=== PATIENT | female | born 1975 | race African-American/Black ===

== ENCOUNTER → 2024-12-25 | Outpatient (CLI) | payer OTHER, SELFPAY ==
--- OUTSIDE RECORDS SUMMARY | 2024-12-25 08:33 | XMS RPT_ITS | CCD ---
Author Organization [facility] Care Team Providers Care Dry Roaster Name Role Phone ROSA PAIGE Unavailable Unavailab RAJANI Garner Unavailable Unavailable OSMAR PURVIS Unavailable Unavailable RAJANI KNUTSON Unavailable Unavailable JAZMINE SHIRLEY Unavailable Unavailabl e Rajani Knutson Unavailable Rajani Knutson Primary Care Provider [phone] Jazmine Shirley Unavailable Jersey Guardado Admitting Unavailable Jersey Guardado Attending Unavailable El-Nashar, Jose Antonio Unavailable Unavailable Tourlas, Jabari Unavailable Unavailabl e Tourlas, Jabari Unavailable Unavailabl e El-Nashar, Jose Antonio A Unavailable Unavailable Zenia, Rajani L Unavailable Unavailable Alicia Ku Unavailable Unavailable Rajani Knutson Unavailable Unavailable Tourlas, Jabari Unavailable Unavailabl e Zenia, Rajani L Unavailable Unavailable Tourlas, Jabari Unavailable Unavailabl e El-Nashar, Jose Antonio Karen-Razik Karen- Unavailable Unavailable Najma Lay Unavailable Unavail able Nancy Quezada Unavailable Unavailable Zenia, Rajani Bernard Unavailable Unavailable Unavailable Unavailable Unavailable Unavailable Unavailable RAJANI KNUTSON Primary Care Unavailable Dr. Roel Thomason Attending Unava ilable RAJANI KNUTSON Primary Care Unavailable RAJANI KNUTSON Attending Unavailable RAJANI KNUTSON Referring Unavailable RAJANI KNUTSON Primary Care Unavailable RAJANI KNUTSON Attending Unavailable RAJANI KNUTSON Referring Unavailable RAJANI KNUTSON Primary Care Unavailable [place], Mrs. Lj Saez Attending Unavailabl e Mike, Mrs. Lj Saez Referring Unavailabl e Mike, Mrs. Lj Saez Attending Unavailabl e [place], Mrs. Lj Wassermann Referring Unavailabl e ZENIARAJANI PLEITEZ Primary Care Unavailable ZENIA, RAJANI HUNTER Primary Care Unavailable RAJANI KNUTSON Attending Unavailable Zumbar, Dr. Angeli Kessler Attending Unav ailable Zenia, Dr. Rajani Hunter Primary Care Unavailab le Zenia, Dr. Rajani Hunter Primary Care Unavailab le Zenia, Dr. Rajani Hunter Attending Unavailab le Zenia, Dr. Rajani Hunter Primary Care Unavailab ruiz Robles, Rocio Attending Unavailable Zenia, Dr. Rajani Hunter Primary Care Unavailab ruiz Robles, Rocio Attending Unavailable Zenia, Dr. Rajani Hunter Primary Care Unavailab ruiz Robles, Rocio Attending Unavailable Zenia, Dr. Rajani Hunter Primary Care Unavailab ruiz Robles, Rocio Attending Unavailable Rajani Knutson MD Primary Care Provider Rajani Knutson MD Unavailable [phone] RAJANI KNUTSON Primary Care Unavailable RAJANI KNUTSON Primary Care Unavailable Rajani Knutson Referring Unavailable Rajani Knutson Primary Care Unavailable Austen Ibarra Attending Unavailable Rajani Knutson MD Unavailable Mike MOTORCYLES FINAL INSPECTOR-Lj DIAZ Unavailable RAJANI KNUTSON Attending Unavailable RAJANI KNUTSON Primary Care Unavailable Rajani Knutson MD Primary Care Provider [place] MOTORCYLES FINAL INSPECTOR-Lj DIAZ Unavailable [phone] RAJANI KNUTSON Primary Care Unavailable YONI PAIGE Attending Unavailable JARON EMERY Referring Unavailable RAJANI KNUTSON Primary Care Unavailable RAJANI KNUTSON Primary Care Unavailable BLAISE GARCIA Attending Unavailable Medications Current Medications Medication Drug Class(es) Dates Sig (Normalized) Sig (Original) amoxicillin 875 mg / clavulanate 125 mg oral tablet (4 sources) Penicillin-class Antibacterial Start: 04-01-2024 End: 04-11-2024 take 1 tablet by mouth twice daily amoxicillin-pot clavulanate (Augmentin) 875-125 mg tablet Indications: Right acute otitis media Take 1 tablet by mouth 2 times a day for 10 days. 20 tablet 04/01/2024 04/11/2024 Active Start: 04-01-2022 End: 04-08-2022 take 1 tablet by mouth once daily Amoxicillin-Pot Clavulanate 875-125 MG Oral Tablet TAKE 1 TABLET EVERY 12 HOURS DAILY. Quantity: 14 Refills: 0 Ordered: 01-Apr-2022 Lj Potter Start : 01-Apr-2022 End : 08-Apr-2022 Active Start: 09-13-2019 take 1 tablet by rea th twice daily Amoxicillin-Pot Clavulanate 875-125 MG Oral Tablet Take 1 tablet twice daily Quantity: 20 Refills: 0 Jabari Hardin Start : 13-Sep-2019 Active doxycycline hyclate 100 mg delayed release oral capsule (2 sources) Tetracycline-class Drug Start: 03-05-2021 take 1 capsule by mouth twice daily [id number] Medication doxycycline hyclate 100 mg capsule doxycycline hyclate 100 mg capsule 100 mg 1 Capsule by mouth twice a day 03/05/2021 Active (Current) estradiol 0.5 mg oral tablet (7 sources) Estrogen Start: 07-25-2023 End: 11-05-2024 take 1 tablet by mouth once daily estradiol (Estrace) 0.5 mg tablet Indications: Perimenopausal , Hot flashes due to menopause Take 1 tablet (0.5 mg) by mouth once daily. 30 tablet 11 11/06/2023 Active etodolac 400 mg oral tablet (1 source) Nonsteroidal Anti-inflammatory Drug Start: 12-14-2024 End: 12-21-2024 take 1 tablet by mouth twice daily etodolac (Lodine) 400 mg tablet Indications: Injury of left knee, initial encounter Take 1 tablet (400 mg) by mouth 2 times a day for 7 days. 14 tablet 12/14/2024 12/21/2024 Active Ferrous fumarate (1 source) FERROUS FUMARATE (IRON ORAL) Take by mouth daily. 0 Active FIBER, HERBAL, ORAL (3 sources) FIBER, HERBAL, O RAL Take by mouth daily. 0 Active FIBER, HERBAL, O RAL Take by mouth daily. Active hydrocortisone acetate 25 mg rectal suppository (1 source) Corticosteroid Start: 07-27-2024 End: 08-26-2024 hydrocortisone (Anusol-HC) 25 mg suppository Indications: Internal hemorrhoids Insert 1 suppository (25 mg) into the rectum 2 times a day as needed for hemorrhoids. 30 suppository 07/27/2024 08/26/2024 Active ibuprofen 600 mg oral tablet (3 sources) Nonsteroidal Anti-inflammatory Drug take 1 tablet by mouth every six hours as needed ibuprofen (ADVIL,MOTRIN) 600 MG tablet Take 600 mg by mouth every 6 (six) hours as needed for pain. 0 Active multivitamin (THERAGRAN) per tablet (1 source) take 1 tablet by mouth once daily multivitamin (THERAGRAN) per tablet Take 1 tablet by mouth daily. 0 Active Multivitamin Tablet (2 sources) take 1 tablet by mouth once daily multivitamin (THERAGRAN) per tablet Take 1 tablet by mouth daily. Active predniSONE 10 mg oral tablet (1 source) Start: 07-25-2023 End: 08-04-2023 take 5 tablets by mouth once daily, then take 4 tablets by mouth once daily, then take 3 tablets by mouth once daily, then take 2 tablets by mouth once daily, then take 1 tablet by mouth once daily predniSONE (Deltasone) 10 mg tablet Indications: Pain in joint of right shoulder Take 5 tablets (50 mg) by mouth once daily for 2 days, THEN 4 tablets (40 mg) once daily for 2 days, THEN 3 tablets (30 mg) once daily for 2 days, THEN 2 tablets (20 mg) once daily for 2 days, THEN 1 tablet (10 mg) once daily for 2 days. 30 tablet 0 07/25/2023 08/04/2023 Active spironolactone 50 mg oral tablet (2 sources) Aldosterone Antagonist Start: 03-05-2021 take 1 tablet by mouth once daily [id number] Medication spironolactone 50 mg tablet spironolactone 50 mg tablet 50 mg 1 Tablet by mouth daily 03/05/2021 Active (Current) traZODone hydrochloride 50 mg oral tablet (15 sources) Serotonin Reuptake Inhibitor Start: 11-09-2024 traZODone (Desyrel) 50 mg tablet Indications: Insomnia, unspecified type Take 1 tablet (50 mg) by mouth see administration instructions. Can take 1 to 3 tablets at bedtime for insomnia as needed 30 tablet 1 11/09/2024 Active Start: 07-12-2024 traZODone (Williams yrel) 50 mg tablet Indications: Insomnia, unspecified type Take 1 tablet (50 mg) by mouth see administration instructions. Can take 1 to 3 tablets at bedtime for insomnia as needed 30 tablet 1 07/12/2024 Active Start: 03-18-2024 traZODone (Williams yrel) 50 mg tablet Indications: Insomnia, unspecified type Take 1 tablet (50 mg) by mouth see administration instructions. Can take 1 to 3 tablets at bedtime for insomnia as needed 30 tablet 03/18/2024 Active Start: 04-28-2023 End: 09-05-2023 traZODone (Desyrel) 50 mg ta blet Indications: Primary insomnia TAKE 1-3 TABLETS BY MOUTH AT NIGHT FOR INSOMNIA 90 tablet 3 04/28/2023 09/05/2023 Discontinued (Med List Cleanup) Start: 10-19-2021 End: 08-08-2022 traZODone HCl - 50 MG Oral T ablet 1 to 3 tablets at night for insomnia Quantity: 90 Refills: 0 Ordered: 05-Sep-2022 Rajani Knutson MD Start : 19-Oct-2021 Active tretinoin 0.5 mg/ml topical cream (2 sources) Retinoid Start: 03-05-2021 [id number] Medicat ion tretinoin 0.05 % topical cream tretinoin 0.05 % topical cream 0.05 % 1 Application topically daily 03/05/2021 Active (Current) Completed/Discontinued Medications Medication Drug Class(es) Dates Sig (Normalized) Sig (Original) acetaminophen 325 mg oral tablet (1 source) Start: 12-14-2024 End: 12-14-2024 take 650 mg by mouth once as needed for pain 650 mg, oral, Once, On Fri12/14/24 at 0825, For 1 dose, If ordered PRN for pain, nurse is permitted to administer this medication for higher pain scores based on patient preference? Yes azithromycin 250 mg oral tablet (1 source) Macrolide Antimicrobial Start: 06-30-2020 take 2 tablets by mouth once daily, then take 1 tablet by mouth, then take 1 tablet by mouth once daily Azithromycin 250 MG Oral Tablet TAKE 2 TABLETS ON DAY 1 THEN TAKE 1 TABLET A DAY FOR 4 DAYS. Quantity: 1 Refills: 0 Rajani Knutson MD Start : 30-Jun-2020 Active 6 Tablet Pack brompheniramine maleate 0.4 mg/ml / dextromethorphan hydrobromide 2 mg/ml / pseudoephedrine hydrochloride 6 mg/ml oral solution (2 sources) alpha-Adrenergic Agonist, Uncompetitive Z-unolve-U-aspartat e Receptor Antagonist, Sigma-1 Agonist Start: 07-16-2022 End: 08-08-2022 take 10 mL by mouth every six hours Pseudoeph-Bromphe n-DM 30-2-10 MG/5ML Oral Syrup TAKE 10 ML Every 6 hours Quantity: 1 Refills: 0 Ordered: 16-Jul-2022 Lj Potter Start : 16-Jul-2022 End : 08-Aug-2022 Complete cranberry preparation 250 mg oral capsule (10 sources) Non-Standardized Food Allergenic Extract, Non-Standardized Plant Allergenic Extract Start: 07-18-2020 take 2 capsules by mouth once daily Cranberry 250 MG Oral Capsule TAKE 2 CAPSULE Daily Quantity: 0 Refills: 0 Ordered: 18-Jul-2020 DO Start : 18-Jul-2020 Active diclofenac sodium 75 mg delayed release oral tablet (20 sources) Nonsteroidal Anti-inflammatory Drug Start: 06-11-2021 take 1 tablet by mouth twice daily as needed for pain Diclofenac Sodium 75 MG Oral Tablet Delayed Release TAKE 1 TABLET Twice daily PRN pain Quantity: 60 Refills: 0 Ordered: 30-Jan-2023 Rocio Robles PA-C Start : 11-Jun-2021 Active Iron (Ferrous Sulfate) TBCR (4 sources) Iron (Ferrous Sulfate) TBCR Refills: 0 Active FERROUS FUMARATE (IRON ORAL) Take by mouth daily. Active hydrOXYzine hydrochloride 50 mg oral tablet (20 sources) Antihistamine Start: 09-05-2023 End: 09-04-2024 take 1 tablet by mouth once daily as needed for anxiety hydrOXYzine HCL (Atarax) 50 mg tablet Indications: Difficulty sleeping Take 1 tablet (50 mg) by mouth once daily as needed for anxiety (sleep). 30 tablet 2 09/05/2023 07/27/2024 Discontinued (Med List Cleanup) Start: 07-25-2023 End: 07-24-2024 take 2 tablets by mouth once daily as needed for anxiety hydrOXYzine HCL (Atarax) 25 mg tablet Indications: Difficulty sleeping Take 2 tablets (50 mg) by mouth once daily as needed for anxiety (sleep). 30 tablet 3 07/25/2023 09/05/2023 Discontinued (Reorder) Start: 03-14-2020 take 1 tablet by rea at bedtime hydrOXYzine HCl - 50 MG Oral Tablet TAKE 1 TABLET Bedtime Quantity: 90 Refills: 3 Ordered: 08-Sep-2020 Rajani Knutson MD Start : 14-Mar-2020 Active Start: 03-14-2020 take 1-2 tablets by mouth three times daily as needed for anxiety hydrOXYzine HCl - 25 MG Oral Tablet Take 1-2 tabs up to three times a day as needed for anxiety. Do not drive or drink alcohol while on med. Quantity: 60 Refills: 1 Jabari Hardin MD Start : 14-Mar-2020 Active levocetirizine dihydrochloride 5 mg oral tablet (1 source) Histamine-1 Receptor Antagonist Start: 09-13-2019 take 1 tablet by mouth at bedtime Levocetirizine Dihydrochloride 5 MG Oral Tablet TAKE 1 TABLET Bedtime Quantity: 14 Refills: 0 Jabari Hardin Start : 13-Sep-2019 Active meloxicam 15 mg oral tablet (1 source) Nonsteroidal Anti-inflammatory Drug Start: 02-18-2020 Meloxicam 15 MG Oral Tablet Quantity: 30 Refills: 0 Start : 18-Feb-2020 Active Naproxen (6 sources) Nonsteroidal Anti-inflammatory Drug Aleve TABS Quantity: 0 Refills: 0 Ordered: 08-Aug-2022 DO Active [place] 3 CAPS (4 sources) [place] 3 CAPS Quantity: 0 Refills: 0 Ordered: 19-Dec-2022 DO Active One-A-Day Womens Formula Oral Tablet (2 sources) One-A-Day Womens Formula Oral Tablet Refills: 0 Active One-A-Day Womens Formula Oral Tablet (6 sources) One-A-Day Womens Formula Oral Tablet Quantity: 0 Refills: 0 Ordered: 30-May-2017 DO Active Super B-Complex Oral Tablet (20 sources) Start: 07-18-2020 End: 08-08-2022 take 1 tablet by mouth once daily Super B-Complex Oral Tablet TAKE 1 TABLET DAILY. Quantity: 0 Refills: 0 Ordered: 18-Jul-2020 DO Start : 18-Jul-2020 End : 08-Aug-2022 Complete Start: 07-18-2020 take 1 tablet by rea th once daily Super B-Complex Oral Tablet TAKE 1 TABLET DAILY. Quantity: 0 Refills: 0 Ordered: 18-Jul-2020 DO Start : 18-Jul-2020 Active tamsulosin hydrochloride 0.4 mg oral capsule (12 sources) alpha-Adrenergic [place] Start: 02-04-2022 End: 08-08-2022 take 1 capsule by mouth at bedtime Tamsulosin HCl - 0.4 MG Oral Capsule TAKE 1 CAPSULE Bedtime 1 capsul at bedtime 3 days prior to surgery and for 7 days after surgery Quantity: 10 Refills: 1 Ordered: 04-Feb-2022 Roel Thomason MD Start : 04-Feb-2022 End : 08-Aug-2022 Complete Vitamin C TABS (6 sources) Vitamin C TABS Quantity: 0 Refills: 0 Ordered: 08-Aug-2022 DO Active zinc gluconate 50 mg oral tablet (6 sources) Start: 07-18-2020 take 1 tablet by mouth once daily Zinc 50 MG Oral Tablet TAKE 1 TABLET DAILY. Quantity: 0 Refills: 0 Ordered: 18-Jul-2020 DO Start : 18-Jul-2020 Active Problems Active Problems Problem Classification Problem Date Documented Date Episodic/Chronic Anxiety disorders (7 sources) Panic attack; Translations: [Panic disorder without agoraphobia] Chronic Genitourinary symptoms and ill-defined conditions (20 sources) Genuine stress incontinence; Translations: [Stress incontinence (female) (male)] Chronic Genitourinary symptoms and ill-defined conditions (20 sources) Dysuria; Translations: [Dysuria] Episodic Hemorrhoids (3 sources) Internal hemorrhoids; Translations: [Other hemorrhoids] Onset: 07-27-2024 07-27-2024 Episodic Immunizations and screening for infectious disease (20 sources) Patient encounter status; Translations: [Other specified vaccination] Episodic Mood disorders (20 sources) Moderate major depression, single episode; Translations: [Major depressive affective disorder, single episode, moderate] Chronic Other connective tissue disease (1 source) Pain in right arm; Translations: [Pain in right arm] Onset: 12-19-2022 Episodic Other endocrine disorders (2 sources) Menarche; Translations: [History of Menarche] Chronic Other injuries and conditions due to external causes (1 source) Injury of left knee; Translations: [Unspecified injury of left lower leg, initial encounter] 12-14-2024 Episodic Other injuries and conditions due to external causes (2 sources) Unspecified injury of left lower leg, initial encounter; Translations: [Unspecified injury of left lower leg, initial encounter] Onset: 12-14-2024 Episodic Other injuries and conditions due to external causes (1 source) Injury of left lower leg; Translations: [Unspecified injury of left lower leg, initial encounter] 12-23-2024 Episodic Other lower respiratory disease (7 sources) Snoring; Translations: [Other respiratory abnormalities] Episodic Other lower respiratory disease (7 sources) Dyspnea on exertion; Translations: [Shortness of breath] Episodic Other lower respiratory disease (1 source) Shortness of breath; Translations: [Shortness of breath] Onset: 12-11-2022 Episodic Other nervous system disorders (8 sources) Chronic pain; Translations: [Other chronic pain] Onset: 04-29-2023 04-29-2023 Chronic Other nervous system disorders (12 sources) Loss of taste; Translations: [Disturbances of sensation of smell and taste] Episodic Other nervous system disorders (12 sources) Loss of sense of smell; Translations: [Disturbances of sensation of smell and taste] Episodic Other non-traumatic joint disorders (3 sources) Pain in elbow; Translations: [Pain in right elbow] 09-05-2023 Episodic Other non-traumatic joint disorders (2 sources) Pain in right elbow; Translations: [Pain in right elbow] Onset: 09-05-2023 Episodic Other nutritional; endocrine; and metabolic disorders (20 sources) Obesity; Translations: [Obesity, unspecified] Chronic Other screening for suspected conditions (not mental disorders or infectious disease) (1 source) Mammography abnormal; Translations: [Other abnormal and inconclusive findings on diagnostic imaging of breast] 08-01-2023 Episodic Other skin disorders (4 sources) Acne vulgaris Onset: 03-05-2021 Episodic Other upper respiratory disease (7 sources) Nasal congestion; Translations: [Other disease of nasal cavity and sinuses] Episodic Other upper respiratory infections (2 sources) Sinusitis; Translations: [Sinusitis] Onset: 04-01-2024 Chronic Other upper respiratory infections (20 sources) Acute sinusitis; Translations: [Acute pharyngitis] Episodic Prolapse of female genital organs (20 sources) Herniation of rectum into vagina; Translations: [Rectocele] Onset: 09-01-2023 09-01-2023 Chronic Residual codes; unclassified (20 sources) H/O: ; Translations: [Personal history of other genital system and obstetric disorders] Episodic Comment on above: Baby1:08/09/92, Live , Vaginal, Male, 3572 g, 15ctBnzh9:04/11/95, Live , Vaginal, Female, 3629 g, 92bhBdpv4:08/24/96, Live , Vaginal, Female, 3629 g, 40wk; Residual codes; unclassified (20 sources) Flushing; Translations: [Flushing] Episodic Residual codes; unclassified (7 sources) Influenza-like symptoms; Translations: [Other general symptoms] Episodic Residual codes; unclassified (1 source) Difficulty sleeping ; Translations: [Sleep disorder, unspecified] 09-05-2023 Episodic Spondylosis; intervertebral disc disorders; other back problems (20 sources) Cervical disc disorder; Translations: [Displacement of cervical intervertebral disc without myelopathy] Onset: 08-15-2022 09-01-2023 Chronic Unclassified (1 source) Injury of left lower leg 12-23-2024 Viral infection (7 sources) Other specified viral infection; Translations: [COVID-19] Episodic Past or Other Problems Problem Classification Problem Date Documented Date Episodic/Chronic Medical examination/evaluatio n (2 sources) Encounter for other preprocedural examination; Translations: [Encounter for other preprocedural examination] Onset: 05-09-2017 Episodic Other acquired deformities (9 sources) Disorder of musculoskeletal system; Translations: [Nonallopathic lesions, lumbar region] Onset: 09-01-2023 09-01-2023 Episodic Other acquired deformities (9 sources) Acquired spondylolisthesis; Translations: [Acquired spondylolisthesis] Onset: 09-01-2023 09-01-2023 Episodic Other connective tissue disease (20 sources) History of acquired spondylolisthesis; Translations: [Personal history of other musculoskeletal disorders] Resolved: 10-04-2021 Episodic Other diseases of veins and lymphatics (2 sources) Peripheral venous insufficiency; Translations: [Venous insufficiency] Onset: 08-23-2015 08-23-2015 Episodic Other diseases of veins and lymphatics (1 source) Disorder of vein; Translations: [Venous insufficiency] Onset: 08-23-2015 08-23-2015 Episodic Other lower respiratory disease (5 sources) Other forms of dyspnea; Translations: [Other forms of dyspnea] Onset: 12-11-2022 Episodic Otitis media and related conditions (1 source) Acute right otitis media; Translations: [Otitis media, unspecified, right ear] 04-01-2024 Episodic Residual codes; unclassified (20 sources) Insomnia; Translations: [Insomnia, unspecified] Onset: 09-01-2023 09-01-2023 Episodic Spondylosis; intervertebral disc disorders; other back problems (20 sources) Cervical radiculitis; Translations: [Brachial neuritis or radiculitis NOS] Onset: 12-19-2022 Episodic Unclassified (2 sources) Patient encounter status; Translations: [History of Encounter for cervical Pap smear with pelvic exam] NEGATED: Highlighted row has not occurred!Residual codes; unclassified (14 sources) Disease Episodic Results Test Name Value Interpretation Reference Range Facility XR KNEE LEFT 1-2 VIEWSon XR KNEE LEFT 1-2 VIEWS STUDY: Knee Radiographs; 12/14/2024 08:32 a.m. INDICATION: Left knee injury. COMPARISON: None Available. ACCESSION NUMBER(S): [id number] ORDERING CLINICIAN: YONI PAIGE TECHNIQUE: Two views of the left knee. FINDINGS: There is no displaced fracture. The alignment is anatomic. No soft tissue abnormality is seen. There is no joint effusion. IMPRESSION: No acute osseous abnormality. Signed by John Bryant MD [facility] XR Knee - left 1 or 2 Viewso n 12-14-2024 No acute osseous abnormality. Signed by John Bryant MD TELERADIOLOGY STUDY: Knee Radiographs; 12/14/2024 08:32 a.m. INDICATION: Left knee injury. COMPARISON: None Available. ACCESSION NUMBER(S): [id number] ORDERING CLINICIAN: YONI PAIGE TECHNIQUE: Two views of the left knee. FINDINGS: There is no displaced fracture. The alignment is anatomic. No soft tissue abnormality is seen. There is no joint effusion. TELERADIOLOGY John Bryant MD - 12/14/2024 STUDY: Knee Radiographs; 12/14/2024 08:32 a.m. INDICATION: Left knee injury. COMPARISON: None Available. ACCESSION NUMBER(S): [id number] ORDERING CLINICIAN: YONI PAIGE TECHNIQUE: Two views of the left knee. FINDINGS: There is no displaced fracture. The alignment is anatomic. No soft tissue abnormality is seen. There is no joint effusion. IMPRESSION: No acute osseous abnormality. Signed by John Bryant MD [facility] Work Phone: Radiology Study observation (narrative) [facility] Work Phone: XR Knee - left 1 or 2 ViewsO rdered By: John Bryant on 12-14-2024 [facility] Work Phone: XR Elbow - right 3 Viewson 0 09-06-2023 Interpreted By: Howard Mojica, STUDY: Right elbow, 4 views. INDICATION: Signs/Symptoms:pain tennis elbow. COMPARISON: None. ACCESSION NUMBER(S): [id number] ORDERING CLINICIAN: RAJANI KNUTSON FINDINGS: No acute fracture or malalignment. No elbow joint effusion or abnormal fat pad elevation. No significant degenerative changes. Soft tissues are unremarkable. MMODAL Howard Good MD - 09/06/2023 Interpreted By: Howard Good, STUDY: Right elbow, 4 views. INDICATION: Signs/Symptoms:pain tennis elbow. COMPARISON: None. ACCESSION NUMBER(S): [id number] ORDERING CLINICIAN: RAJANI KNUTSON FINDINGS: No acute fracture or malalignment. No elbow joint effusion or abnormal fat pad elevation. No significant degenerative changes. Soft tissues are unremarkable. IMPRESSION: 1. Unremarkable radiographic evaluation of the right elbow. MACRO: None. Signed by: Howard Good 09/06/2023 9:31 AM Dictation workstation: [id number] [facility] Work Phone: XR Elbow - right 3 ViewsOrde red By: Howard Good on 09-06-2023 [facility] Work Phone: C reactive proteinon 024 CRP [Mass/Vol] 0.42 mg/dL Normal <1.00 [facility] Comment on above: Performed By: #### 1 [id number] #### MARJAN OSORIO ([id number]) [facility] ([facility]) [address] [place] [address] [id number] Cyclic citrullinated peptide Ab.IgGon 09-05-2023 Cyclic citrullinated peptide IgG Qn <1 Normal <3 [facility] Comment on above: Order Comment: THE T EST FOR ANTIBODIES SPECIFIC FOR CYCLIC CITRULLINATED PEPTIDE (CCP) HAS SHOWN TO BE VALUABLE IN THE DIAGNOSIS OF RHEUMATOID ARTHRITIS. THE DIAGNOSTIC VALUE OF ANTIBODIES TO CCP IN JUVENILE RHEUMATOID ARTHRITIS PATIENTS HAS NOT BEEN DETERMINED. ANTIBODIES TO CENTROMERE OR SS-A AND MYELOMA IGG MAY BE REACTIVE IN THIS ASSAY. Result Comment: NEGA TIVE < 3 U/ML POSITIVE >=3 U/ML Performed By: #### 3 [id number] #### TOBIN Bernard ([id number]) [facility] ([facility]) [address] [place] [address] [id number] ESR Westergren method (Bld) [Velocity]on 09-05-2023 ESR (Bld) [Velocity] 3 mm/h Normal 0-20 [facility] Comment on above: Performed By: #### 4 [id number] #### MARJAN OSORIO ([id number]) [facility] ([facility]) [address] [place] [id number] Nuclear Abon 09-05-2023 Nuclear Ab Hep2 substrate Ql (S) Negative Normal Negative [facility] Comment on above: Result Comment: The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 [place] to see if any of your close contacts may have been exposed to the virus and need to quarantine. If the test is negative, you likely do not have COVID-19 at this time, but you still may have a different illness that can spread to other people (like Influenza, or the Flu) and could still be at risk for getting COVID-19. We recommend that you stay away from other people to limit the spread of illness until your symptoms are improving and you are fever-free for 24 hours without the use of fever lowering medications such as acetaminophen or ibuprofen. No test is 100% accurate so if you are still concerned you may have COVID-19, talk to your doctor about the need to continue to stay away from others. Medicines Unless your provider told you not to use the following: Acetaminophen (Tylenol and others) is generally safe. Anti-inflammatory medications, such as Ibuprofen (Advil or Motrin) or Naproxen (Aleve) can also be used. Kcfa-wim-infclmf cough and cold medicines can be used according to the instructions on the package. Some lwvi-hux-syoujsy medicines also contain acetaminophen. Make sure you are not taking more than your recommended dose. For those not hospitalized, there is no specific treatment available for this illness. Antibiotics do not treat Coronaviruses. Follow-Up Follow up with your doctor by scheduling a virtual visit or consider follow-up at one of our urgent care fever clinics. If you are having difficulty breathing, or are very weak and having difficulty standing, this is a medical emergency. Call 911 or have someone take you to the nearest emergency room immediately. If possible, wear a facemask. Additional guidance from the CDC for patients who tested POSITIVE for COVID-19 How to isolate: Isolate yourself in a specific room at home and limit your contact with others. Use a separate bathroom from other members of the household, when possible. Leave home only to get essential medical care. Do not go to work, school or public areas. Avoid using public transportation, ride-sharing, or taxis. Restrict contact with pets and other animals. If you must care for your pet or be around animals while you are sick, wash your hands before and after your interaction and wear a facemask. Make sure that shared spaces in the home have good airflow, such as by an air conditioner or an opened window, weather permitting. Personal Hygiene Procedures: Wear a face mask when in the same room as other people or pets. If a face mask interferes with your breathing, others should wear a mask when sharing space with you. Frequent hand-washing: wash your hands with soap and water for at least 20 seconds. If soap and water are not available, use alcohol-based hand business services coordinator. Avoid touching your eyes, nose, and mouth with unwashed hands. Household Hygiene Procedures: Avoid sharing personal household items such as dishes, glassware, cups, eating utensils, towels or bedding with other people or pets in your home. After use, these items should be washed with soap and hot water. Disinfect all high-touch surfaces every day with antibacterial cleaning solutions such as Lysol wipes, bleach, cleansers, etc. High-touch surfaces include tabletops, doorknobs, bathroom fixtures, toilets, phones, keyboards, tablets and bedside tables. Immediately clean any surfaces that may have blood, poop or body fluids on them, using antibacterial cleaning solutions such as Lysol wipes, bleach, cleansers, etc. If clothing or bedding come into contact with blood, poop or body fluids, they should be washed immediately. Follow the directions on the laundry detergent and clothing labels but hot water is recommended when possible. Stopping home isolation precautions: If possible, consult your doctor before stopping home isolation precautions. According to the CDC, you can discontinue home isolation precautions when you have met both of these criteria: Your fever and respiratory symptoms have been gone for 24 yara (more content not included)... Normal [facility] INFLUENZA A/B, COVID 2019 PC R,SYMPTOMATICon 07-17-2022 INFLUENZA A, PCR Not detected Normal Not Detected [facility] Comment on above: Result Comment: Resp iratory virus testing is performed routinely by PCR for Influenza A/B and RSV. If Influenza and RSV PCR are negative, testing for parainfluenza 1,2,3 viruses and adenovirus is routinely performed for oncology inpatients and intensive care unit patients at [facility] and is available on request on other patients by calling Laboratory Client Services at [phone]. Not Detected results do not preclude Influenza A/B or RSV infections since the adequacy of sample collection or low viral burden may impact the clinical sensitivity of this test method. Performed By: #### C OINP #### [facility] [address] [place] [address] INFLUENZA B, PCR Not detected Normal Not Detected [facility] Comment on above: Result Comment: Resp iratory virus testing is performed routinely by PCR for Influenza A/B and RSV. If Influenza and RSV PCR are negative, testing for parainfluenza 1,2,3 viruses and adenovirus is routinely performed for oncology inpatients and intensive care unit patients at [facility] and is available on request on other patients by calling Laboratory Client Services at [phone] Not Detected results do not preclude Influenza A/B or RSV infections since the adequacy of sample collection or low viral burden may impact the clinical sensitivity of this test method. Performed By: #### C OINP #### [facility] [address] [place] [address] SARS-CoV-2 (COVID-19) RNA RASHAD+probe Ql (Unsp spec) Not detected Normal Not Detected [facility] Comment on above: Result Comment: . This assay is designed to detect the ORF1a/b and E genes of SARS-CoV-2 via nucleic acid amplification. A Not Detected result does not preclude 2019-nCoV infection since the adequacy of sample collection and/or low viral burden may result in presence of viral nucleic acids below the clinical sensitivity of this test method. Fact sheet for providers: https://www.fda.gov/media/023328/download Fact sheet for patients: https://www.fda.gov/media/364492/download This test has received FDA Emergency Use Authorization (EUA) and has been verified for use by [facility] ([facility]). This test is only authorized for the duration of time that circumstances exist to justify the authorization of the emergency use of in vitro diagnostic tests for the detection of SARS-CoV-2 virus and/or diagnosis of COVID-19 infection under section 564(b)(1) of the Act, 21 U.S.C. 360bbb-3(b)(1), unless the authorization is terminated or revoked sooner. [facility] is certified under CLIA-88 as qualified to perform high complexity testing. Testing is performed in the [facility] laboratories located at [id number] [place] [address]. Performed By: #### C OINP #### [facility] [id number] [place] [address] INFLUENZA A/B, COVID 2019 PC R,SYMPTOMATICon 07-16-2022 Lab Specimen Source Nasal, Nasopharyngeal Normal [facility] Comment on above: Performed By: #### C OINP #### [place] [address] INFLUENZA A/B, COVID 2019 PCR,SYMPTOMATIC Not detected See Below [facility] Work Phone: Comment on above: Reference Range: Not Detected.This assay is designed to detect the ORF1a/b and E genes of SARS-CoV-2 via nucleic acid amplification. A Not Detected result does not preclude 2019-nCoV infection since the adequacy of sample collection and/or low viral burden may result in presence of viral nucleic acids below the clinical sensitivity of this test method. Fact sheet for providers: https://www.fda.gov/media/838800/download Fact sheet for patients: https://www.fda.gov/media/774683/download This test has received FDA Emergency Use Authorization (EUA) and has been verified for use by [facility] ([facility]). This test is only authorized for the duration of time that circumstances exist to justify the authorization of the emergency use of in vitro diagnostic tests for the detection of SARS-CoV-2 virus and/or diagnosis of COVID-19 infection under section 564(b)(1) of the Act, 21 U.S.C. 360bbb-3(b)(1), unless the authorization is terminated or revoked sooner.[facility] is certified under CLIA-88 as qualified to perform high complexity testing. Testing is performed in the [facility] laboratories located at [address] [place] [address]. Reference Range: Not Detected Respiratory virus testing is performed routinely by PCR for Influenza A/B and RSV. If Influenza and RSV PCR are negative, testing for parainfluenza 1,2,3 viruses and adenovirus is routinely performed for oncology inpatients and intensive care unit patients at [facility] and is available on request on other patients by calling Laboratory Client Services at [phone] Not Detected results do not preclude Influenza A/B or RSV infections since the adequacy of sample collection or low viral burden may impact the clinical sensitivity of this test method. SOURCE: Nasal, Nasop haryngealReference Range: Not Detected Respiratory virus testing is performed routinely by PCR for Influenza A/B and RSV. If Influenza and RSV PCR are negative, testing for parainfluenza 1,2,3 viruses and adenovirus is routinely performed for oncology inpatients and intensive care unit patients at [facility] and is available on request on other patients by calling Laboratory Client Services at [phone]. Not Detected results do not preclude Influenza A/B or RSV infections since the adequacy of sample collection or low viral burden may impact the clinical sensitivity of this test method. Office Visit (Family Medicin e)on 07-16-2022 Follow-up visit Diagnoses/Problems Nasal congestion (478.19) (R09.81) Flu-like symptoms (780.99) (R68.89) Orders Flu-like symptoms INFLUENZA A/B, COVID 2019 PCR,SYMPTOMATIC; Status:Complete; Done: [id number] 01:37PM Flu-like symptoms, Nasal congestion Start: Jqmakntad-Kjwuseer-JC 30-2-10 MG/5ML Oral Syrup; TAKE 10 ML Every 6 hours Provider Impressions Flu-like symptoms: Will test for COVID and influenza A/B, prescribed Bromfed for cough.congestion. instructed to stay home until test results available. offered Zofran fro vomiting, she declines. recommend increase clear liquids. return if symptoms worsen Will call with lab results Chief Complaint Ear ache Congestion diarrhea vomiting Off and on History of Present Illness Claude is a 46 yo female, here today with complaints of Ear ache, congestion, diarrhea, and vomiting off and on Sx onset: 07/14/2022 Sx include: nasal congestion, body aches, facial pressure, right eye pain, pain in right ear when blowing nose, diarrhea, vomiting. Denies fever however temp is 99.1 here in office today She has not tested for COVID, went to work today but vomited at work. requests flu vaccine today, will not administer due to current illness. Review of Systems Constitutional: feeling poorly, but no chills, no fever and no night sweats. ENT: the ears feel full, nasal congestion and sinus pressure, but no hearing loss, no nasal discharge, no hoarseness and no sore throat. Respiratory: cough, but no shortness of breath during exertion, no shortness of breath at rest and no wheezing. Gastrointestinal: diarrhea and vomiting, but no abdominal pain, no blood in stools, no constipation, no melena, no nausea and no rectal pain. Genitourinary: no dysuria, no change in urinary frequency, no urinary hesitancy, no feelings of urinary urgency and no vaginal discharge. Musculoskeletal: myalgias, but no arthralgias and no back pain. Integumentary: no new skin lesions and no rashes. Neurological: no difficulty walking, no headache, no limb weakness, no numbness and no tingling. 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) Cervical radiculitis (723.4) (M54.12) Cervical spinal stenosis (723.0) (M48.02) Class 1 obesity with body mass index (BMI) of 31.0 to 31.9 in adult (278.00,V85.31) (E66.9,Z68.31) Current moderate episode of major depressive disorder without prior episode (296.22) (F32.1) Dysfunctional voiding of urine (599.9) (N39.8) Dysuria (788.1) (R30.0) History of acquired spondylolisthesis (V13.59) (Z87.39) Hot flashes (782.62) (R23.2) Insomnia (780.52) (G47.00) Loss of smell (781.1) (R43.0) Loss of taste (781.1) (R43.2) Lumbar radiculopathy, chronic (724.4) (M54.16) Preop testing (V72.84) (Z01.818) Rectocele, female (618.04) (N81.6) Sinusitis, acute (461.9) (J01.90) Stress incontinence of urine (N39.3) Suspected COVID-19 virus infection (V01.79) (Z20.822) Past Medical History History of Encounter for cervical Pap smear with pelvic exam (V76.2,V72.31) (Z01.419) 12/10/13;WNL History of acquired spondylolisthesis (V13.59) (Z87.39) Resolved Date: 04 Oct 2021 History of (V13.29) Baby1:08/09/92, Live , Vaginal, Male, 3572 g, 40wk Baby1:04/11/95, Live , Vaginal, Female, 3629 g, 41wk Baby1:08/24/96, Live , Vaginal, Female, 3629 g, 40wk History of Menarche (V21.8) Onset Date: 1988 AGE 12 Surgical History History of Bladder Surgery History of Colonoscopy History of Colposcopy History of Epidural steroid injection Managed By: Angeli Bingham (Pain Medicine) C7-T1 ARNEL History of Hysterectomy VAGINAL NON-CANCEROUS Pt thinks her cervix was removed - not 100% sure History of Knee Surgery History of Salpingectomy Bilateral Salpingectomy History of Salpingo-oophorectomy bilateral History of Tonsillectomy History of Tubal Ligation Family History Family history of Cause of : Blood Clot to leg at the age 53 Family history of seizures (V19.8) (Z84.89) Family history of Primary malignant neoplasm of female breast Unknown family medical history No pertinent family history Family history of cardiac disorder (V17.49) (Z82.49) Family history of cerebrovascular accident (CVA) (V17.1) (Z82.3) Family history of hyperlipidemia (V18.19) (Z83.438) Family history of hypertension (V17.49) (Z82.49) Family history of migraine headaches (V17.2) (Z82.0) Family history of cerebrovascular accident (CVA) (V17.1) (Z82.3) Family history of malignant neoplasm (V16.9) (Z80.9) Family history of malignant neoplasm of prostate (V16.42) (Z80.42) Family history of throat cancer (V16.0) (Z80.0) Social History Does not use illicit drugs (V49.89) (Z78.9) Former smoker (V15.82) (Z87.891) Quit 2 yrs ago No alcohol use No recent domestic travel No recent foreign travel Allergies No Known Drug Allergies Recorded By: Nelly Bailon; 05/30/2017 12:34:53 PM Current (more content not included)... Normal [employer] Tobacco Screening.on 022 Tobacco use status [facility] b) No -[facility] Work Phone: CORONAVIRUS 2019 BY PCRon SARS-CoV-2 (COVID-19) RNA RASHAD+probe Ql (Unsp spec) Not detected Normal Not Detected [facility] Comment on above: Result Comment: . This assay is designed to detect the N, ORF1ab and/or S genes of SARS-CoV-2 via nucleic acid amplification. A Negative (NOT DETECTED) result does not preclude 2019-nCoV infection since the adequacy of sample collection and/or low viral burden may result in presence of viral nucleic acids below the clinical sensitivity of this test method. Negative (NOT DETECTED) result should not be used as the sole basis for treatment or other patient management decisions. Rather negative results should be combined with clinical observations, patient history, and epidemiological information to make patient management decisions. Fact sheet for providers: https://www.fda.gov/media/994581/download Fact sheet for patients: https://www.fda.gov/media/783856/download This test has received FDA Emergency Use Authorization (EUA) and has been verified by [facility] ([facility]). This test is only authorized for the duration of time that circumstances exist to justify the authorization of the emergency use of in vitro diagnostic tests for the detection of SARS-CoV-2 virus and/or diagnosis of COVID-19 infection under section 564(b)(1) of the Act, 21 U.S.C. 360bbb-3(b)(1), unless the authorization is terminated or revoked sooner. [facility] is certified under CLIA-88 as qualified to perform high complexity testing. Testing is performed in the [facility] laboratories located at [id number] [place] [address]. Performed By: #### C OV19 #### [facility] [address] [place] [address] Covid 19 Resultson 2 SARS-CoV-2 (COVID-19) RNA RASHAD+probe Ql (Unsp spec) NEGATIVE COVID-19 Test Coronaviruses are common world-wide and are the cause of many common colds. SARS-COV2 is a new coronavirus that began circulating worldwide in 2019 so we are calling it COVID-19. It has been estimated that four out of five patients with COVID-19 will recover at home without the need for medical attention. Symptoms of COVID-19 may include cough, fever, shortness of breath, loss of taste or smell and other flu-like symptoms including chills, sore muscles, sore throat, and headache. Severe illness is more common in older people and people with other health problems such as high blood pressure, obesity, and immune system problems. If the test is positive, you have COVID-19. You will be contacted by the ordering physicians office and instructed to remain on home isolation, in accordance with CDC guidelines. You may also be contacted by the [facility] to see if any of your close contacts may have been exposed to the virus and need to quarantine. If the test is negative, you likely do not have COVID-19 at this time, but you still may have a different illness that can spread to other people (like Influenza, or the Flu) and could still be at risk for getting COVID-19. We recommend that you stay away from other people to limit the spread of illness until your symptoms are improving and you are fever-free for 24 hours without the use of fever lowering medications such as acetaminophen or ibuprofen. No test is 100% accurate so if you are still concerned you may have COVID-19, talk to your doctor about the need to continue to stay away from others. Medicines Unless your provider told you not to use the following: Acetaminophen (Tylenol and others) is generally safe. Anti-inflammatory medications, such as Ibuprofen (Advil or Motrin) or Naproxen (Aleve) can also be used. Pohc-utv-utdlfnq cough and cold medicines can be used according to the instructions on the package. Some adsd-qwq-xyzssdc medicines also contain acetaminophen. Make sure you are not taking more than your recommended dose. For those not hospitalized, there is no specific treatment available for this illness. Antibiotics do not treat Coronaviruses. Follow-Up Follow up with your doctor by scheduling a virtual visit or consider follow-up at one of our urgent care fever clinics. If you are having difficulty breathing, or are very weak and having difficulty standing, this is a medical emergency. Call 911 or have someone take you to the nearest emergency room immediately. If possible, wear a facemask. Additional guidance from the CDC for patients who tested POSITIVE for COVID-19 How to isolate: Isolate yourself in a specific room at home and limit your contact with others. Use a separate bathroom from other members of the household, when possible. Leave home only to get essential medical care. Do not go to work, school or public areas. Avoid using public transportation, ride-sharing, or taxis. Restrict contact with pets and other animals. If you must care for your pet or be around animals while you are sick, wash your hands before and after your interaction and wear a facemask. Make sure that shared spaces in the home have good airflow, such as by an air conditioner or an opened window, weather permitting. Personal Hygiene Procedures: Wear a face mask when in the same room as other people or pets. If a face mask interferes with your breathing, others should wear a mask when sharing space with you. Frequent hand-washing: wash your hands with soap and water for at least 20 seconds. If soap and water are not available, use alcohol-based hand business services coordinator. Avoid touching your eyes, nose, and mouth with unwashed hands. Household Hygiene Procedures: Avoid sharing personal household items such as dishes, glassware, cups, eating utensils, towels or bedding with other people or pets in your home. After use, these items should be washed with soap and hot water. Disinfect all high-touch surfaces every day with antibacterial cleaning solutions such as Lysol wipes, bleach, cleansers, etc. High-touch surfaces include tabletops, doorknobs, bathroom fixtures, toilets, phones, keyboards, tablets and bedside tables. Immediately clean any surfaces that may have blood, poop or body fluids on them, using antibacterial cleaning solutions such as Lysol wipes, bleach, cleansers, etc. If clothing or bedding come into contact with blood, poop or body fluids, they should be washed immediately. Follow the directions on the laundry detergent and clothing labels but hot water is recommended when possible. Stopping home isolation precautions: If possible, consult your doctor before stopping home isolation precautions. According to the CDC, you can discontinue home isolation precautions when you have met both of these criteria: Your fever and respiratory symptoms have been gone for 24 yara (more content not included)... Normal [facility] CORONAVIRUS 2019 BY PCRon Lab Specimen Source Nasal, Nasopharyngeal Normal [facility] Comment on above: Performed By: #### C OV19 #### [facility] [address] [place] [address] Coronavirus 2019 RNA by PCR, Symptomaticon 04-01-2022 Coronavirus 2019 RNA by PCR, Symptomatic Not detected Normal See Below -[facility] Work Phone: Comment on above: SOURCE: Nasal, Nasop haryngealReference Range: Not Detected.This assay is designed to detect the N, ORF1ab and/or S genes of SARS-CoV-2 via nucleic acid amplification. A Negative (NOT DETECTED) result does not preclude 2019-nCoV infection since the adequacy of sample collection and/or low viral burden may result in presence of viral nucleic acids below the clinical sensitivity of this test method. Negative (NOT DETECTED) result should not be used as the sole basis for treatment or other patient management decisions. Rather negative results should be combined with clinical observations, patient history, and epidemiological information to make patient management decisions.Fact sheet for providers: https://www.fda.gov/media/173951/downloadFact sheet for patients: https://www.fda.gov/media/582847/downloadThis test has received FDA Emergency Use Authorization (EUA) and has been verified by [facility] ([facility]). This test is only authorized for the duration of time that circumstances exist to justify the authorization of the emergency use of in vitro diagnostic tests for the detection of SARS-CoV-2 virus and/or diagnosis of COVID-19 infection under section 564(b)(1) of the Act, 21 U.S.C. 360bbb-3(b)(1), unless the authorization is terminated or revoked sooner. [facility] is certified under CLIA-88 as qualified to perform high complexity testing. Testing is performed in the [facility] laboratories located at [address] [place] [address]. Office Visit (Family Medicin e)on 04-01-2022 Follow-up visit Diagnoses/Problems Suspected COVID-19 virus infection (V01.79) (Z20.822) Sinusitis, acute (461.9) (J01.90) Loss of taste (781.1) (R43.2) Loss of smell (781.1) (R43.0) Orders Loss of smell, Loss of taste, Suspected COVID-19 virus infection Coronavirus 2019 RNA by PCR, Symptomatic; Status:In Progress - Specimen/Data Collected; Done: [id number] Sinusitis, acute Start: Amoxicillin-Pot Clavulanate 875-125 MG Oral Tablet; TAKE 1 TABLET EVERY 12 HOURS DAILY Provider Impressions Suspected COVID 19 infection: PCR COVID test ordered, may return to work if PCR test is negative, if positive follow employer guidelines. Sinuitis: Augmentin 875/125 mg twice daily fro 7 days, Flonase nasal spray twice daily for 1 week then once a day. Return if symptoms persist or worsen Chief Complaint First got sick on 03/09. History of Present Illness Claude is a 46 yo female, here today with complaints of sinus pain, fever, possible COVID infection. She reports on 03/08/22, had a bladder surgery, i have been sick every since with fevers. 24 hours after surgery started running a fever, 101, day 2 started to improve, then fever returned the following week off/on. 1 week ago started having nasal congestion, reports 101.8 fever today, took Tylenol. have no taste or smell. complains of body aches. i have been in bed the last 2 days Current Sx onset was 02/24/22 at work. Sx include, sore throat, nasal congestion, [place], body ache, sinus pain, ear ache, fever. daughter was sick 1st week of March, did test positive for COVID Has history of sinus infections, report facial pain worse when bending over. Review of Systems ENT: earache, the ears feel full, nasal congestion, sinus pressure and sore throat. Cardiovascular: no chest pain, no intermittent leg claudication, no lower extremity edema, no palpitations and no syncope. Respiratory: no cough, no shortness of breath during exertion, no shortness of breath at rest and no wheezing. Gastrointestinal: no abdominal pain, no blood in stools, no constipation, no diarrhea, no melena, no nausea, no rectal pain and no vomiting. Genitourinary: no dysuria, no change in urinary frequency, no urinary hesitancy, no feelings of urinary urgency and no vaginal discharge. Integumentary: no new skin lesions and no rashes. Neurological: headache, but no difficulty walking, no limb weakness, no numbness and no tingling. 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) Cervical radiculitis (723.4) (M54.12) Cervical spinal stenosis (723.0) (M48.02) Class 1 obesity with body mass index (BMI) of 31.0 to 31.9 in adult (278.00,V85.31) (E66.9,Z68.31) Current moderate episode of major depressive disorder without prior episode (296.22) (F32.1) Dysfunctional voiding of urine (599.9) (N39.8) Dysuria (788.1) (R30.0) History of acquired spondylolisthesis (V13.59) (Z87.39) Hot flashes (782.62) (R23.2) Insomnia (780.52) (G47.00) Lumbar radiculopathy, chronic (724.4) (M54.16) Preop testing (V72.84) (Z01.818) Rectocele, female (618.04) (N81.6) Stress incontinence of urine (N39.3) Past Medical History History of Encounter for cervical Pap smear with pelvic exam (V76.2,V72.31) (Z01.419) 12/10/13;WNL History of acquired spondylolisthesis (V13.59) (Z87.39) Resolved Date: 04 Oct 2021 History of (V13.29) Baby1:08/09/92, Live , Vaginal, Male, 3572 g, 40wk Baby1:04/11/95, Live , Vaginal, Female, 3629 g, 41wk Baby1:08/24/96, Live , Vaginal, Female, 3629 g, 40wk History of Menarche (V21.8) Onset Date: 1988 AGE 12 Surgical History History of Bladder Surgery History of Colonoscopy History of Colposcopy History of Epidural steroid injection Managed By: Angeli Bingham (Pain Medicine) C7-T1 ARNEL History of Hysterectomy VAGINAL NON-CANCEROUS Pt thinks her cervix was removed - not 100% sure History of Knee Surgery History of Salpingectomy Bilateral Salpingectomy History of Salpingo-oophorectomy bilateral History of Tonsillectomy History of Tubal Ligation Family History Family history of Cause of : Blood Clot to leg at the age 53 Family history of seizures (V19.8) (Z84.89) Family history of Primary malignant neoplasm of female breast Unknown family medical history No pertinent family history Family history of cardiac disorder (V17.49) (Z82.49) Family history of cerebrovascular accident (CVA) (V17.1) (Z82.3) Family history of hyperlipidemia (V18.19) (Z83.438) Family history of hypertension (V17.49) (Z82.49) Family history of migraine headaches (V17.2) (Z82.0) Family history of cerebrovascular accident (CVA) (V17.1) (Z82.3) Family history of malignant neoplasm (V16.9) (Z80.9) Family history of malignant neoplasm of prostate (V16.42) (Z80.42) Family history of throat cancer (V16.0) (Z80.0) Social History Does not use illicit drugs (V49.89) (Z78.9) Former smoker (V15.82) (Z87.891) Q (more content not included)... Normal [facility] Surgical Pathology Dep artmenton 03-15-2022 [facility] Surgical Pathology Department Name BEBA GOODMANYAIR Borrego Pathologist: THOMAS BOSCH MD Date of Procedure: 03/15/2022 Date Received: 03/15/2022 Date Reported 03/20/2022 Submitting Physician: ROEL THOMASON M.D. Location: [facility] Copy To/Referring/Attending: ROEL THOMASON M.D. Other External # FINAL DIAGNOSIS A. VAGINAL MUCOSA: -- SQUAMOUS MUCOSA WITH NO SIGNIFICANT PATHOLOGICAL FINDINGS. Electronically Signed Out By THOMAS BOSCH MD/RFA By the signature on this report, the individual or group listed as making the Final Interpretation/Diagnosis certifies that they have reviewed this case. Diagnostic interpretation performed at [facility] [address] [place] [address] Clinical History: Physician Contact Number: [phone] Fixative (A): Formalin Clinical Diagnosis History RECTOCELE Specimens Submitted As: A: VAGINAL MUCOSA Gross Description: Received in formalin, labeled with the patient's name and hospital number and A. Vaginal mucosa, are multiple fragments of mucosa covered soft tissue aggregating to 4 x 2.5 x 1.2 cm. Convex Grinder sections are submitted in one cassette. ATB atb/03/15/2022 [facility] Department of Pathology [address] [place] [address] Normal [facility] Comment on above: Performed By: #### A #### [facility] Surgical Pathology Department [address] [place] [address] Homegoing Instructionson Homegoing Instructions Additional Instructions: Handouts Given: Topic 1anesthesia information Topic 2medication information Topic 3surgical information Electronic Signatures: Cheryl Spear (JOSE DE JESUS) (Signed 15-Mar-2022 13:12) Authored: Additional Instructions Last Updated: 15-Mar-2022 13:12 by Cheryl Spear) Normal [facility] No Panel Informationon 03-15 Name CLAUDE GOODMANVijay Pathologist: THOMAS BOSCH MD Date of Procedure: 03/15/2022 Date Received: [id number]-BSLUE-Essoh rbshaniaok [address] Work Phone: Order Reconciliationon 03-15 Order Reconciliation Page 1 Discharge Reconciliation Document Reconciliation Type: Discharge requested on behalf of Leanna Portillo (Fellow) done by Leanna Portillo ( (Fellow)) Discharge - Reconciliation: 15-Mar-2022 11:01 by: Leanna Portillo ( (Fellow)) Discharge - Reset to Incomplete: 15-Mar-2022 12:58 by: Leanna Portillo ( (Fellow)) Discharge - Reconciliation: 15-Mar-2022 12:59 by: Leanna Portillo ( (Fellow)) Home Medications EnteredHOME MEDICATIONS AT DISCHARGE DateReconciliation Comment/ Additional Information diclofenac sodium 75 mg oral delayed release tablet 1 tab(s) orally 2 times a day, As Needed 01-Aug-2021 15:47 diclofenac sodium 75 mg oral delayed release tablet 1 tab(s) orally 2 times a day, As Needed 01-Aug-2021 15:47 diclofenac sodium 75 mg oral delayed release tablet is continued as diclofenac sodium 75 mg oral delayed release tablet Iron 100 Plus oral tablet 1 tab(s) orally once a day 29-Sep-2019 09:01 Iron 100 Plus oral tablet 1 tab(s) orally once a day 29-Sep-2019 09:01 Iron 100 Plus oral tablet is continued as Iron 100 Plus oral tablet Multiple Vitamins oral tablet 1 tab(s) orally once a day 24-Sep-2019 13:47 Multiple Vitamins oral tablet 1 tab(s) orally once a day 24-Sep-2019 13:47 Multiple Vitamins oral tablet is continued as Multiple Vitamins oral tablet potassium 99 milligram(s) orally once a day 15-Mar-2022 10:29 potassium 99 milligram(s) orally once a day 15-Mar-2022 10:29 potassium is continued as potassium tamsulosin 0.4 mg oral capsule 1 cap(s) orally once a day 15-Mar-2022 10:29 tamsulosin 0.4 mg oral capsule 1 cap(s) orally once a day 15-Mar-2022 10:29 tamsulosin 0.4 mg oral capsule is continued as tamsulosin 0.4 mg oral capsule trazadone 50 milligram(s) orally once a day (at bedtime) 15-Mar-2022 10:28 trazadone 50 milligram(s) orally once a day (at bedtime) 15-Mar-2022 10:28 trazadone is continued as trazadone Current OrdersDateHOME MEDICATIONS AT DISCHARGE DateReconciliation Comment/ Additional Information Droperidol Injectable (INAPSINE)DOSE = 0.625 mg IntraVenous Push Once, PRN Nausea or persistent PONV if first line ineffectivCa.625 mg/DOSE x 1 = 0.625 mg/Dose (Daily Total is 0.625 mg)Clinician Notes: Jo-operative order ONLY Mon 14-Mar-2022 15:23 Droperidol Injectable is not required HYDROmorphone Injectable (DILAUDID)DOSE = 0.25 mg IntraVenous Push Every 5 Minutes, PRN Pain - Mod (4-6) (PACU)Clinician Notes: Jo-operative order ONLYMax total of 4 mg regardless of dose. 14-Mar-2022 15:23 HYDROmorphone Injectable is not required HYDROmorphone Injectable (DILAUDID)DOSE = 0.5 mg IntraVenous Push Every 5 Minutes, PRN Pain - Severe (7-10) (PACU)Clinician Notes: Jo-operative order ONLYMax total of 4 mg regardless of dose. 14-Mar-2022 15:23 HYDROmorphone Injectable is not required Lactated Ringers Infusion IV Bag Volume = 1,000 mL Run at: 100 mL/hr IntraVenous Clinician Notes: Jo-operative order ONLY 14-Mar-2022 15:23 Lactated Ringers Infusion is not required Ondansetron Injectable (ZOFRAN)DOSE = 4 mg IntraVenous Push Once, PRN PONV, first lineClinician Notes: Jo-operative order ONLY 14-Mar-2022 15:23 Ondansetron Injectable is not required oxyCODONE Immediate Release Tablet (OXYIR, ROXICODONE)DOSE = 10 mg Oral Every 4 Hours, PRN Pain - Severe (7-10) (PACU) when able to take oralClinician Notes: Jo-operative order ONLY 14-Mar-2022 15:23 oxyCODONE Immediate Release is not required oxyCODONE Immediate Release Tablet (OXYIR, ROXICODONE)DOSE = 5 mg Oral Every 4 Hours, PRN Pain - Mild (1-3) (PACU) when able to take OralClinician Notes: Jo-operative order ONLY 14-Mar-2022 15:23 oxyCODONE Immediate Release is not required Home Medications Added During Discharge Reconciliation Activity as Tolerated 15-Mar-2022, Routine, Assistance Level: None, Restrictions: None, Limit your activities and rest today. Additional Patient Instructions Do not engage in sports, heavy work or lifting. Do not lift more than 10 lbs x 2 weeks and 20 lbs x 4 more weeks. Call Physician For: excessive bleeding (slow general oozing that completely soaks dressing or fresh bright red bleeding) or bleeding that will not stop. Apply pressure to the area and elevate. Call Physician For: if the arm or leg operated on has a change in color, numbness or tingling coldness to the touch or excessive pain. Call Physician For: inability to urinate every 8-12 hours and your bladder becomes too full or painful. Call Physician For: persistant nausea and/or vomiting Over 24 hours Call Physician For: signs and sypmtoms of infection Increased redness or swelling at incision site, increased pain/tenderness at surgical site, increased temperature greater than 100 degress, increasing and/or progressive drainage from surgical site, and/or unusual odor from surgical site. Colace 100 mg oral capsule 1 cap(s) orally 2 times a day Diet Regular (more content not included)... Normal [facility] Patient Profile - Preop v3on 03-15-2022 Patient Profile - Preop v3 Patient Profile - Preop: Initial Info: Patient DemographicsName: CLAUDE GOODMAN Date: 1975 Address: [facility] [address], [id number] Primary Phone [phone] How to be AddressedDevon Spoken Language PreferredEnglish Stated Reason for Admissionuretahra and bladder wall sx Primary Contact Name and NumberJohngallo [phone] Medications Brought to Hospitalno General Health: Weight in kg92 kilogram(s) Weight in ixh105.8 pound(s) Weight Methodactual (measured) Scale Typestanding Height in feet5 feet Height in inches7.95 inch(es) Height in cm172.5 centimeter(s) Height Methodstated BMI (kg/m2)30.917 square meter Patient or Family Member Reaction to Anesthesiano previous reaction Blood Avoidance/Restrictionsnone Previous Transfusion Reactionnot applicable Health Mgmt: Symptoms/Conditions Managed at [facility] incontinence anxiety former smoker 0.5 ppd x 30 yrs Are You no (1) Are You Currently Breastfeedingno Barriers to Managing Healthnone Relationship/Environ: Lives Withspouse; dependent child(sabino); adult child(sabino) Living Arrangementshouse Resource/Environmental Concernsnone Anticipated Transition [place] [facility] Anticipated at Transitionnone Tobacco Use: Tobacco Useyes Tobacco Typecigarettes Last Tobacco [id number] Number of Packs per Day0.5 Number of yrs30 Pack yrs15 Pre-op Checklist: Arrival [id number] NPOyes Last Food [id number] 18:00 Last Clear Fluid [id number] 07:30 ID Band On Patientpatient ID (name), falls risk Consent Signedpending H&P Completepending Anesthesia Assessment Completedpending EKG Performednot ordered Chest X-Ray Performednot ordered Preop Antibioticsnot ordered COVID 19 Results in Last 7 daysneg Type and Screen Resultedn/a HCG Urine TestN/A Chlorhexadine Bath Givennot applicable Nasal Antiseptic Appliednot applicable Hair Washed with Shampooyes Bowel Prepno Surgical Site Infection Preventionyes Pain Scales and Managementyes Additional Information: Information Review: Allergies, Home Meds and Significant Events have been Reviewed and Verified with Patient/Familyyes Allergy, Intolerance, Adverse Event: Allergies: No Known Allergies: Active Electronic Signatures: Westley Rick (JOSE DE JESUS) (Signed 15-Mar-2022 10:24) Authored: Initial Info, General Health, Health Mgmt, Relationship/Environ, Tobacco Use, Pre-op Checklist, Additional Information Last Updated: 15-Mar-2022 10:24 by Westley Rick (JOSE DE JESUS) References: 1. Data Referenced From History and Physical - Surgery > 30 days 15-Mar-2022 05:00 Normal [facility] CORONAVIRUS 2019, SCREEN ASY MPTOMATICon 03-13-2022 SARS-CoV-2 (COVID-19) RNA RASHAD+probe Ql (Unsp spec) Not detected Normal Not Detected [facility] Comment on above: Result Comment: . This assay is designed to detect the N, ORF1ab and/or S genes of SARS-CoV-2 via nucleic acid amplification. A Negative (NOT DETECTED) result does not preclude 2019-nCoV infection since the adequacy of sample collection and/or low viral burden may result in presence of viral nucleic acids below the clinical sensitivity of this test method. Negative (NOT DETECTED) result should not be used as the sole basis for treatment or other patient management decisions. Rather negative results should be combined with clinical observations, patient history, and epidemiological information to make patient management decisions. Fact sheet for providers: https://www.fda.gov/media/264355/download Fact sheet for patients: https://www.fda.gov/media/793904/download This test has received FDA Emergency Use Authorization (EUA) and has been verified by [facility] ([facility]). This test is only authorized for the duration of time that circumstances exist to justify the authorization of the emergency use of in vitro diagnostic tests for the detection of SARS-CoV-2 virus and/or diagnosis of COVID-19 infection under section 564(b)(1) of the Act, 21 U.S.C. 360bbb-3(b)(1), unless the authorization is terminated or revoked sooner. [facility] is certified under CLIA-88 as qualified to perform high complexity testing. Testing is performed in the [facility] laboratories located at [address] [place] [address]. Performed By: #### C OVSC #### [address] [place] [address] Covid 19 Resultson 2 SARS-CoV-2 (COVID-19) RNA RASHAD+probe Ql (Unsp spec) NEGATIVE COVID-19 Test Coronaviruses are common world-wide and are the cause of many common colds. SARS-COV2 is a new coronavirus that began circulating worldwide in 2019 so we are calling it COVID-19. It has been estimated that four out of five patients with COVID-19 will recover at home without the need for medical attention. Symptoms of COVID-19 may include cough, fever, shortness of breath, loss of taste or smell and other flu-like symptoms including chills, sore muscles, sore throat, and headache. Severe illness is more common in older people and people with other health problems such as high blood pressure, obesity, and immune system problems. If the test is positive, you have COVID-19. You will be contacted by the ordering physicians office and instructed to remain on home isolation, in accordance with CDC guidelines. You may also be contacted by the [facility] to see if any of your close contacts may have been exposed to the virus and need to quarantine. If the test is negative, you likely do not have COVID-19 at this time, but you still may have a different illness that can spread to other people (like Influenza, or the Flu) and could still be at risk for getting COVID-19. We recommend that you stay away from other people to limit the spread of illness until your symptoms are improving and you are fever-free for 24 hours without the use of fever lowering medications such as acetaminophen or ibuprofen. No test is 100% accurate so if you are still concerned you may have COVID-19, talk to your doctor about the need to continue to stay away from others. Medicines Unless your provider told you not to use the following: Acetaminophen (Tylenol and others) is generally safe. Anti-inflammatory medications, such as Ibuprofen (Advil or Motrin) or Naproxen (Aleve) can also be used. Gtft-snj-wixqxkg cough and cold medicines can be used according to the instructions on the package. Some clfn-ufn-hqeztib medicines also contain acetaminophen. Make sure you are not taking more than your recommended dose. For those not hospitalized, there is no specific treatment available for this illness. Antibiotics do not treat Coronaviruses. Follow-Up Follow up with your doctor by scheduling a virtual visit or consider follow-up at one of our urgent care fever clinics. If you are having difficulty breathing, or are very weak and having difficulty standing, this is a medical emergency. Call 911 or have someone take you to the nearest emergency room immediately. If possible, wear a facemask. Additional guidance from the CDC for patients who tested POSITIVE for COVID-19 How to isolate: Isolate yourself in a specific room at home and limit your contact with others. Use a separate bathroom from other members of the household, when possible. Leave home only to get essential medical care. Do not go to work, school or public areas. Avoid using public transportation, ride-sharing, or taxis. Restrict contact with pets and other animals. If you must care for your pet or be around animals while you are sick, wash your hands before and after your interaction and wear a facemask. Make sure that shared spaces in the home have good airflow, such as by an air conditioner or an opened window, weather permitting. Personal Hygiene Procedures: Wear a face mask when in the same room as other people or pets. If a face mask interferes with your breathing, others should wear a mask when sharing space with you. Frequent hand-washing: wash your hands with soap and water for at least 20 seconds. If soap and water are not available, use alcohol-based hand business services coordinator. Avoid touching your eyes, nose, and mouth with unwashed hands. Household Hygiene Procedures: Avoid sharing personal household items such as dishes, glassware, cups, eating utensils, towels or bedding with other people or pets in your home. After use, these items should be washed with soap and hot water. Disinfect all high-touch surfaces every day with antibacterial cleaning solutions such as Lysol wipes, bleach, cleansers, etc. High-touch surfaces include tabletops, doorknobs, bathroom fixtures, toilets, phones, keyboards, tablets and bedside tables. Immediately clean any surfaces that may have blood, poop or body fluids on them, using antibacterial cleaning solutions such as Lysol wipes, bleach, cleansers, etc. If clothing or bedding come into contact with blood, poop or body fluids, they should be washed immediately. Follow the directions on the laundry detergent and clothing labels but hot water is recommended when possible. Stopping home isolation precautions: If possible, consult your doctor before stopping home isolation precautions. According to the CDC, you can discontinue home isolation precautions when you have met both of these criteria: Your fever and respiratory symptoms have been gone for 24 yara (more content not included)... Normal [facility] CORONAVIRUS 2019, SCREEN ASY MPTOMATICon 03-12-2022 Lab Specimen Source Nasal, Nasopharyngeal Normal [facility] Comment on above: Performed By: #### C OVSC #### [facility] [address] [place] [address] Coronavirus 2019 RNA by PCR, Screening Asymptomticon 03-12-2022 Coronavirus 2019 RNA by PCR, Screening Asymptomtic Not detected Normal See Below Latrice interiano [address] Work Phone: Comment on above: SOURCE: Nasal, Nasop haryngealReference Range: Not Detected.This assay is designed to detect the N, ORF1ab and/or S genes of SARS-CoV-2 via nucleic acid amplification. A Negative (NOT DETECTED) result does not preclude 2019-nCoV infection since the adequacy of sample collection and/or low viral burden may result in presence of viral nucleic acids below the clinical sensitivity of this test method. Negative (NOT DETECTED) result should not be used as the sole basis for treatment or other patient management decisions. Rather negative results should be combined with clinical observations, patient history, and epidemiological information to make patient management decisions.Fact sheet for providers: https://www.fda.gov/media/988521/downloadFact sheet for patients: https://www.fda.gov/media/471896/downloadThis test has received FDA Emergency Use Authorization (EUA) and has been verified by [facility] ([facility]). This test is only authorized for the duration of time that circumstances exist to justify the authorization of the emergency use of in vitro diagnostic tests for the detection of SARS-CoV-2 virus and/or diagnosis of COVID-19 infection under section 564(b)(1) of the Act, 21 U.S.C. 360bbb-3(b)(1), unless the authorization is terminated or revoked sooner. [facility] is certified under CLIA-88 as qualified to perform high complexity testing. Testing is performed in the [facility] laboratories located at [address] [place] [address]. TYPE + SCREENon 03-07-2022 ABO TYPE O Normal [facility] Comment on above: Performed By: #### T +S #### [facility] [address] [place] [address] RH TYPE Negative Normal [facility] Comment on above: Result Comment: Revi ew your Rh Negative female patient's potential need for Rh Immune Globulin (RhIg)administration. Performed By: #### T +S #### [facility] [address] [place] [address] Laboratory - Blood bankon ABO group Nom (Bld) O MK-FXGYD-Rtrly rbrook 210 UI Work Phone: Blood group antibody screen Ql Negative YQ-AUTNK-Vdlp e rbrook 210 UI Work Phone: Rh immune globulin screen (Bld) [Interp] Negative DO-TUQGJ-Dzxwp rbrook 210 UI Work Phone: Comment on above: Review your Rh Negat chelle female patient's potential need for Rh Immune Globulin (RhIg)administration. TYPE + SCREENon 03-05-2022 ABO TYPE O Normal [facility] Comment on above: Performed By: #### U AMIC #### [address] [address] RH TYPE Negative Normal [facility] Comment on above: Result Comment: Revi ew your Rh Negative female patient's potential need for Rh Immune Globulin (RhIg)administration. Performed By: #### U AMIC #### [address] [address] CBCon 03-01-2022 Erythrocyte distribution width (RBC) [Ratio] 14.4 % Normal 11.5 - 14.5 [facility] Comment on above: Performed By: #### C JENARO #### [facility] [address] [place] [address] Hematocrit (Bld) [Volume fraction] 40.5 % Normal 36.0 - 46.0 [facility] Comment on above: Performed By: #### C JENARO #### [facility] [address] [place] [address] Hemoglobin (Bld) [Mass/Vol] 12.9 g/dL Normal 12.0 - 16.0 [facility] Comment on above: Performed By: #### C JENARO #### [facility] [address] [place] [address] MCHC (RBC) [Mass/Vol] 31.8 g/dL Low 32.0 - 36.0 [facility] Comment on above: Performed By: #### C JENARO #### [facility] [address] [place] [address] MCV (RBC) [Entitic vol] 85 fL Normal 80 - 100 [facility] Comment on above: Performed By: #### C JENARO #### [facility] [address] [place] [address] Platelets (Bld) [#/Vol] 232 10*3/uL Normal 150 - 450 [facility] Comment on above: Performed By: #### C JENARO #### [facility] [address] [place] [address] RBC 4.76 x10E12/L Normal 4.00 - 5.20 [facility] Comment on above: Performed By: #### C JENARO #### [place] [address] [place] [address] WBC (Bld) [#/Vol] 6.6 10*3/uL Normal 4.4 - 11.3 [facility] Comment on above: Performed By: #### C JENARO #### [facility] [address] [place] [address] Laboratory - Blood bankon ABO group Nom (Bld) Canceled EA-ZWPXV-Ymrrz rbrook 210 UI Work Phone: Comment on above: NO PHLEB ID, NOTIFSUMAYA Mac , 03/04/2022 12:49 Blood group antibody screen Ql Canceled LF-WOLLR-Uswm e rbrook 210 UI Work Phone: Comment on above: NO PHLEB ID, SOFIA Mac , 03/04/2022 12:49 Rh immune globulin screen (Bld) [Interp] Canceled BT-ZPDLZ-Suvaf rbrook 210 UI Work Phone: Comment on above: NO PHLEB ID, SOFIA Mac , 03/04/2022 12:49 Laboratory - Hematology and Cell countson 03-01-2022 Erythrocyte distribution width (RBC) [Ratio] 14.4 % See Below PZ-DSFBO-Iaiha rbrook 210 UI Work Phone: Comment on above: Reference Range: 11. 5 - 14.5 Hematocrit (Bld) [Volume fraction] 40.5 % See Below AL-HECNT-Phrka rbrook 210 UI Work Phone: Comment on above: Reference Range: 36. 0 - 46.0 Hemoglobin (Bld) [Mass/Vol] 12.9 g/dL See Below XH-DIAKC-Mxkpk rbrook 210 UI Work Phone: Comment on above: Reference Range: 12. 0 - 16.0 MCHC (RBC) [Mass/Vol] 31.8 g/dL below low threshold See Below CG-TARBV-Mtbhu rbrook 210 UI Work Phone: Comment on above: Reference Range: 32. 0 - 36.0 MCV (RBC) [Entitic vol] 85 fL 80 - 100 PZ-KRPFF-Uhcbl rbrook 210 UI Work Phone: Platelets (Bld) [#/Vol] 232 10*3/uL 150 - 450 SG-COEOL-Sxhkw rbrook 210 UI Work Phone: RBC (Bld) [#/Vol] 4.76 {x10E12/L} See Below MG -OBGYN-Lande rbrook 210 UI Work Phone: Comment on above: Reference Range: 4.0 0 - 5.20 WBC (Bld) [#/Vol] 6.6 10*3/uL 4.4 - 11.3 MG-OBG YN-Lande rbrook 210 UI Work Phone: TYPE + SCREENon 03-01-2022 ABO TYPE Canceled Normal [facility] Comment on above: Order Comment: NO PH LEB ID, NOTIFIED ROBERTO Mac , 03/04/2022 12:49TEST TYPE + SCREEN WAS CANCELLED, 03/01/2022 18:59 NO PHLEB ID ON TUBE.CANCELLED.. Result Comment: NO P HLEB ID, NOTIFIED ROBERTO Mac , 03/04/2022 12:49 Performed By: #### C JENARO #### [facility] [address] [place] [address] RH TYPE Canceled Normal [facility] Comment on above: Order Comment: NO PH LEB ID, NOTIFIED ROBERTO CarbajalVijay , 03/04/2022 12:49TEST TYPE + SCREEN WAS CANCELLED, 03/01/2022 18:59 NO PHLEB ID ON TUBE.CANCELLED.. Result Comment: NO P HLEB ID, NOTIFIED ROBERTO CarbajalVijay , 03/04/2022 12:49 Performed By: #### C JENARO #### [facility] [address] [place] [id number] Office Visit (UROGYN-FPMRS)o n 02-04-2022 Follow-up visit Diagnoses/Problems Assessed Dysfunctional voiding of urine (599.9) (N39.8) Stress incontinence of urine (N39.3) Orders Dysfunctional voiding of urine, Stress incontinence of urine Start: Tamsulosin HCl - 0.4 MG Oral Capsule; TAKE 1 CAPSULE Bedtime 1 capsul at bedtime 3 days prior to surgery and for 7 days after surgery Provider Impressions Assessment: Claude Goodman is a 46 year old patient being treated for a rectocele, dyspareunia, and CHAVO. Diagnosis: #1 Rectocele - recurrent after TVH, AR/CA in 2019 #2 Stress incontinence - recurrent after sling in 2019 #3 Dyspareunia #4 Myofascial pain #5 Dysfunctional voiding Plan: 1. Stress urinary incontinence, rectocele - USD showed +CHAVO and dysfunctional voiding. She is s/p Mid urethral sling x 2 with persistent CHAVO - Surgery scheduled 03/15/2022: Urethral bulking, CA, and cystoscopy. - Discussed the risks, benefits, and alternatives of the surgery with no postoperative weight or activity restrictions and she will be released from the hospital the same day as her surgery. There is a small chance she may experience urinary retention after surgery and may need to be discharged home with a catheter. 2. Dysfunctional voiding, CHAVO - Rx: Flomax 0.4mg 1 pill po qhs. Start this medication 3 days prior to surgery, the day of surgery, and 3 days after surgery. Possible side effects include lightheadedness. Discussed that this medication will help prevent urinary retention/incomplete bladder emptying after surgery. A telephone visit (audio only) between the patient (at the originating site) and the provider (at the distant site) was utilized to provide this telehealth service. Verbal consent was requested and obtained from Claude Goodman on this date, 02/04/2022 at 5:00PM, for a telehealth visit. Telephone visit time: 7 minutes. Follow up 2 weeks after surgery with Dr. Thomason. IGustavo, am scribing for virtually, and in the presence of Dr. Roel Thomason on 02/04/2022 at 6:34 PM. Agree with above All questions answered 3 min prep 7 min call 3 min note [address] Thomason, personally performed the services described in the documentation which was scribed virtually and confirm it is both complete and accurate. STM Chief Complaint A telephone visit (audio only) between the patient (at the originating site) and the provider (at the distant site) was utilized to provide this telehealth service. Verbal consent was requested and obtained from CLAUDE GOODMAN on this date, 02/04/2022 05:00 PM , for a telehealth visit. Telephone only History of Present Illness The last clinic visit was: 5 week(s) ago. Visit type: This is a routine clinic follow-up. Reason for Visit: Pre Operation . Testing results: PVR results not available and UA results not available. 46 year old female presenting for a phone visit today to discuss UDS. UDS Results: + CHAVO Urinary Symptoms: - Reports CHAVO with coughing, sneezing, and exercising. Interval History: - Currently losing weight - she has lost 15 pounds so far and wishes to lose 40 more pounds to be back down to 160lbs (currently at 202lbs). - Reports 2 prior midurethral sling surgeries with Dr. Jose Antonio Ivy. 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) (M50.30) Cervical radiculitis (723.4) (M54.12) Cervical spinal stenosis (723.0) (M48.02) Class 1 obesity with body mass index (BMI) of 31.0 to 31.9 in adult (278.00,V85.31) (E66.9,Z68.31) Current moderate episode of major depressive disorder without prior episode (296.22) (F32.1) Dysuria (788.1) (R30.0) History of acquired spondylolisthesis (V13.59) (Z87.39) Hot flashes (782.62) (R23.2) Insomnia (780.52) (G47.00) Lumbar radiculopathy, chronic (724.4) (M54.16) Preop testing (V72.84) (Z01.818) Rectocele, female (618.04) (N81.6) Stress incontinence of urine (N39.3) Medical History Problems History of Encounter for cervical Pap smear with pelvic exam (V76.2,V72.31) (Z01.419) 12/10/13;WNL History of acquired spondylolisthesis (V13.59) (Z87.39) Resolved Date: 04 Oct 2021 History of (V13.29) Baby1:08/09/92, Live , Vaginal, Male, 3572 g, 40wk Baby1:04/11/95, Live , Vaginal, Female, 3629 g, 41wk Baby1:08/24/96, Live , Vaginal, Female, 3629 g, 40wk History of Menarche (V21.8) Onset Date: 1987 AGE 12 Surgical History Problems History of Bladder Surgery History of Colonoscopy History of Colposcopy History of Epidural steroid injection Managed By: Angeli Bingham (Pain Medicine) C7-T1 ARNEL History of Hysterectomy VAGINAL NON-CANCEROUS Pt thinks her cervix was removed - not 100% sure History of Knee Surgery History of Salpingectomy Bilateral Salpingectomy History of Salpingo-oophorectomy bilateral History of Tonsillectomy History of Tubal Ligation Family History Mother Family history of Cause of : Blood Clot to leg at the age 53 Family (more content not included)... Normal [employer] UA MICROSCOPICon 12-25-2021 BACTERIA 1+ /HPF Abnormal [facility] Comment on above: Performed By: #### U AMI #### [place] [address] HYALINE CAST OCC Abnormal [facility] Comment on above: Performed By: #### U AMIC #### [address] [address] Mucus Ql (Urine sed) 4+ /LPF Normal [facility] Comment on above: Performed By: #### U AMIC #### [address] [address] RBC (U) [#/Vol] /uL Normal 0-5 [facility] Comment on above: Performed By: #### U AMIC #### [address] [address] SQUAMOUS EPITH. CELLS 5 /HPF Normal [facility] Comment on above: Performed By: #### U AMIC #### [address] [address] WBC 1 /HPF Normal 0-5 [facility] Comment on above: Performed By: #### U AMIC #### [address] [address] URINALYSISon 12-25-2021 Appearance (U) HAZY Normal CLEAR [facility] Comment on above: Performed By: #### C JENARO #### [facility] [address] [place] [address] Bilirubin Ql (U) Negative Normal NEGATIVE [facility] Comment on above: Performed By: #### C JENARO #### [facility] [address] [place] [address] Color (U) Laura Normal STRAW,YELL OW [facility] Comment on above: Performed By: #### C JENARO #### [facility] [address] [place] [address] Glucose Ql (U) Negative Normal NEGATIVE [facility] Comment on above: Performed By: #### C JENARO #### [facility] [address] [place] [address] Hemoglobin Ql (U) Negative Normal NEGATIVE [facility] Comment on above: Performed By: #### C JENARO #### [facility] [address] [place] [address] Ketones Ql (U) Negative Normal NEGATIVE [facility] Comment on above: Performed By: #### C JENARO #### [facility] [address] [place] [address] Leukocyte esterase Test strip Ql (U) Negative Normal NEGATIVE [facility] Comment on above: Performed By: #### C JENARO #### [facility] [address] [place] [address] Nitrite Ql (U) Negative Normal NEGATIVE [facility] Comment on above: Performed By: #### C JENARO #### [facility] [address] [place] [address] pH (U) 5.0 [pH] Normal 5.0 - 8.0 [facility] Comment on above: Performed By: #### C JENARO #### [facility] [address] [place] [address] Protein Ql (U) 30(1+) Abnormal NEGATIVE [facility] Comment on above: Performed By: #### C JENARO #### [facility] [address] [place] [address] Specific gravity (U) [Rel density] 1.033 Normal 1.005 - 1.035 [facility] Comment on above: Performed By: #### C JENARO #### [facility] [address] [place] [address] Urobilinogen (U) [Mass/Vol] mg/dL Normal 0.0 - 1.9 [facility] Comment on above: Performed By: #### C JENARO #### [facility] [address] [place] [address] Blood Pressure Cuff Sizeon 0 12-13-2021 Blood Pressure Cuff Size Large XK-HWGWV-Rfoqn rest Work Phone: URINALYSISon 12-13-2021 Appearance (U) HAZY Normal CLEAR [facility] Comment on above: Performed By: #### U A #### [place] [address] [place] [address] Bilirubin Ql (U) Negative Normal NEGATIVE [facility] Comment on above: Performed By: #### U A #### [address] [address] Color (U) Laura Normal STRAW,YELL OW [facility] Comment on above: Performed By: #### U A #### [address] [address] Glucose Ql (U) Negative Normal NEGATIVE [facility] Comment on above: Performed By: #### U A #### [address] [address] Hemoglobin Ql (U) Negative Normal NEGATIVE [facility] Comment on above: Performed By: #### U A #### [address] [address] Ketones Ql (U) 5(TRACE) Abnormal NEGATIVE [facility] Comment on above: Performed By: #### U A #### [address] [address] Leukocyte esterase Test strip Ql (U) Negative Normal NEGATIVE [facility] Comment on above: Performed By: #### U A #### [address] [address] Nitrite Ql (U) Negative Normal NEGATIVE [facility] Comment on above: Performed By: #### U A #### [address] [address] pH (U) 5.0 [pH] Normal 5.0 - 8.0 [facility] Comment on above: Performed By: #### U A #### [address] [address] Protein Ql (U) Negative Normal NEGATIVE [facility] Comment on above: Performed By: #### U A #### [address] [address] Specific gravity (U) [Rel density] 1.024 Normal 1.005 - 1.035 [facility] Comment on above: Performed By: #### U A #### [address] [address] Urobilinogen (U) [Mass/Vol] mg/dL Normal 0.0 - 1.9 [facility] Comment on above: Performed By: #### U A #### [facility] [address] [place] [address] Urinalysison 12-13-2021 Color (U) Laura See Below HP-DYFNV-Amzif rest Work Phone: Comment on above: Reference Range: STR AW,YELLOW Glucose Ql (U) Negative NEGATIVE MG-OBGYN-H illc rest Work Phone: Ketones Ql (U) 5(TRACE) Abnormal NEGATIVE MG-OBGYN-H illc rest Work Phone: Leukocyte esterase Test strip Ql (U) Negative NEGATIVE ZX-LNBFU-Avjch rest Work Phone: pH (U) 5.0 [pH] 5.0 - 8.0 NO-JYWSJ-Uvfnk rest Work Phone: Protein (U) [Mass/Vol] Negative NEGATIVE MG-YVZSD-Omyab rest Work Phone: RBC (U) [#/Vol] Negative NEGATIVE MG-OBGYN- Hillc rest Work Phone: Specific gravity (U) [Rel density] 1.024 1 See Below YC-RRNIN-Xytdq rest Work Phone: Comment on above: Reference Range: 1.0 05 - 1.035 Urinalysis Negative NEGATIVE MK-OPXFE-Bdhbw rest Work Phone: Urinalysis <2.0 0.0 - 1.9 EA-MXQKQ-Jddfb rest Work Phone: Urinalysis HAZY CLEAR GG-GURND-Nbody rest Work Phone: 17-HYDROXYPROGESTERONEon 17-HYDROXYPROGESTE MICHELL 170 ng/dL Normal [facility] Comment on above: Result Comment: Unable to flag abnormal result(s), please refer to reference range(s) below: Adult Female Reference Ranges for 17-Hydroxyprogesterone: Pre-Menopausal Mid Follicular: 23 - 102 ng/dL Pre-Menopausal Surge: 67 - 349 ng/dL Pre-Menopausal Mid Luteal: 139 - 431 ng/dL Postmenopausal Phase: < or = 45 ng/dL Female Duke Stages: II - III Females: 18 - 220 ng/dL IV - V Females: 36 - 200 ng/dL Includes data from J Clin Endocrinol Metab. 1991;73:674-686; J Clin Endocrinol Metab. 1989;69;7946-8789; J Clin Endocrinol Metab. 1994;78:226-270. Pediatr Res 1988;23:525-529. MedLinePlus (accessed 01/03/14). This test was developed and its analytical performance characteristics have been determined by [employer] [place], [place]. It has not been cleared or approved by the U.S. Food and Drug Administration. This assay has been validated pursuant to the CLIA regulations and is used for clinical purposes. Performed By: #### C JENARO #### [facility] [address] [place] [address] 17-Hydroxyprogesterone, Seru mon 10-22-2021 17-Hydroxyprogeste michell [Mass/Vol] 170 ng/dL [facility] Work Phone: Comment on above: Unable to flag a bnormal result(s), please refer to reference range(s) below: Adult Female Reference Ranges for 17-Hydroxyprogesterone: Pre-Menopausal Mid Follicular: 23 - 102 ng/dL Pre-Menopausal Surge: 67 - 349 ng/dL Pre-Menopausal Mid Luteal: 139 - 431 ng/dL Postmenopausal Phase: < or = 45 ng/dL Female Duke Stages: II - III Females: 18 - 220 ng/dL IV - V Females: 36 - 200 ng/dL Includes data from J Clin Endocrinol Metab. 1991;73:674-686; J Clin Endocrinol Metab. 1989;69;4598-9608; J Clin Endocrinol Metab. 1994;78:226-270. Pediatr Res 1988;23:525-529. MedLinePlus (accessed 01/03/14). This test was developed and its analytical performancecharacteristics have been determined by [employer] [place], [place]. It hasnot been cleared or approved by the U.S. Food and DrugAdministration. This assay has been validated pursuantto the CLIA regulations and is used for clinicalpurposes. BASIC METABOLIC PANELon 04-0 Anion gap [Moles/Vol] 12 mmol/L Normal 10 - 20 [facility] Comment on above: Performed By: #### B MP #### [address] [address] Calcium [Mass/Vol] 9.0 mg/dL Normal 8.6 - 10.3 [facility] Comment on above: Performed By: #### B MP #### [address] [address] Chloride [Moles/Vol] 107 mmol/L Normal 98 - 107 [facility] Comment on above: Performed By: #### B MP #### [address] [address] Creatinine [Mass/Vol] 1.00 mg/dL Normal 0.50 - 1.05 [facility] Comment on above: Performed By: #### B MP #### [address] [address] GFR/1.73 sq M.predicted among non-blacks MDRD (S/P/Bld) [Vol rate/Area] 70 mL/min/{1.73_m2} Normal >90 [facility] Comment on above: Result Comment: CALC ULATIONS OF ESTIMATED GFR ARE PERFORMED USING THE 2020 CKD-EPI STUDY REFIT EQUATION WITHOUT THE RACE VARIABLE FOR THE IDMS-TRACEABLE CREATININE METHODS. https://jasn.asnjournals.org/content/early/ASN.150888606 8 Performed By: #### B MP #### [address] [address] Glucose [Mass/Vol] 89 mg/dL Normal 74 - 99 [facility] Comment on above: Performed By: #### B MP #### [address] [address] HCO3 (Bld) [Moles/Vol] 25 mmol/L Normal 21 - 32 [facility] Comment on above: Performed By: #### B MP #### [address] [address] Potassium [Moles/Vol] 4.0 mmol/L Normal 3.5 - 5.3 [facility] Comment on above: Performed By: #### B MP #### [address] [address] Sodium [Moles/Vol] 140 mmol/L Normal 136 - 145 [facility] Comment on above: Performed By: #### B MP #### [address] [address] Urea nitrogen [Mass/Vol] 13 mg/dL Normal 6 - 23 [facility] Comment on above: Performed By: #### B MP #### [address] [address] CORTISOL, A.M.on 10-22-2021 CORTISOL, A.M. 14.0 ug/dL Normal 5.0 - 20.0 [facility] Comment on above: Performed By: #### C JENARO #### [facility] [address] [place] [address] Cortisol A.M.on 10-22-2021 Cortisol AM peak specimen [Mass or moles/Vol] 14.0 ug/dL 5.0 - 20.0 [facility] Work Phone: DHEA SULFATEon 10-22-2021 DHEA SULFATE 77 ug/dL Normal 12 - 379 [facility] Comment on above: Result Comment: [place] ROMANO-BASED REFERENCE RANGES: PUBERTAL (DUKE) STAGE MALE FEMALE I 5 - 265 5 - 125 II 15 - 380 15 - 150 III 60 - 505 20 - 535 IV 65 - 560 35 - 485 V 165 - 500 75 - 530 Biotin interference may cause falsely elevated results. Patients taking a Biotin dose of up to 5 mg/day should refrain from taking Biotin for 24 hours before sample collection. Providers may contact their local laboratory for further information. Performed By: #### D TORY #### [facility] [address] [place] [address] DHEA Sulfate, Serumon 2021 DHEA-S [Mass/Vol] 77 ug/dL 12 - 379 [facility] Work Phone: Comment on above: MATURITY-BASED REFER ENCE RANGES: PUBERTAL (DUKE) STAGE MALE FEMALE I 5 - 265 5 - 125 II 15 - 380 15 - 150 III 60 - 505 20 - 535 IV 65 - 560 35 - 485 V 165 - 500 75 - 530 Biotin interference may cause falsely elevated results. Patients taking a Biotin dose of up to 5 mg/day should refrain from taking Biotin for 24 hours before sample collection. Providers may contact their local laboratoryfor further information. ESTRADIOLon 10-22-2021 ESTRADIOL 107 pg/mL Normal [facility] Comment on above: Result Comment: REF VALUES FOLLICULAR PHASE 20-144 MID CYCLE 64-357 LUTEAL PHASE 56-214 POSTMENOPAUSE < 32 PREPUBERTY < 20 FEMALE 10-18Y 8-110 MALE 10-18Y < 20 ADULT MALE < 40 Performed By: #### C JENARO #### [facility] [address] [place] [address] Estradiol, Serumon E2 [Mass/Vol] 107 pg/mL [facility] Work Phone: Comment on above: REF VALUESFOLLICULAR PHASE 20-144MID CYCLE 64-357LUTEAL PHASE 56-214POSTMENOPAUSE < 32PREPUBERTY < 20FEMALE 10-18Y 8-110MALE 10-18Y < 20ADULT MALE < 40 FSH + LHon 10-22-2021 FOLLICLE STIM. HORMONE 4.5 IU/L Normal [facility] Comment on above: Result Comment: REF VALUES FOLLICULAR 2-12 MID-CYCLE 12-25 LUTEAL PHASE 2-12 MENOPAUSE 30-150 PREPUBERTY 50% ADULT ADULT MALE 2-10 INFANTS 0-1 Performed By: #### F SHL #### [facility] [address] [place] [address] LUTEINIZING HORMONE 4.3 IU/L Normal [facility] Comment on above: Result Comment: REF VALUES FOLLICULAR PHASE 1.9-12.5 MID-CYCLE 8.7-76.3 LUTEAL PHASE 0.5-16.9 POST MENOPAUSE 5.0-55.2 CHILDREN 0- 6.0 ADULT MALE 18-70 1.5- 9.3 ADULT MALE >70 3.1-34.6 Performed By: #### F SHL #### [facility] [address] [place] [address] HGBon 10-22-2021 Hemoglobin (Bld) [Mass/Vol] 13.7 g/dL Normal 12.0 - 16.0 [facility] Comment on above: Performed By: #### H GB #### [facility] [address] [place] [address] Hemoglobinon 10-22-2021 Hemoglobin (Bld) [Mass/Vol] 13.7 g/dL See Below [facility] Work Phone: Comment on above: Reference Range: 12. 0 - 16.0 Laboratory - Chemistry and C hemistry - challengeon 10-22-2021 Anion gap [Moles/Vol] 12 mmol/L 10 - 20 [facility] Work Phone: Calcium [Mass/Vol] 9.0 mg/dL 8.6 - 10.3 [facility] Work Phone: Chloride [Moles/Vol] 107 mmol/L 98 - 107 [facility] Work Phone: CO2 [Moles/Vol] 25 mmol/L 21 - 32 [facility] Work Phone: Creatinine [Mass/Vol] 1.00 mg/dL See Below [facility] Work Phone: Comment on above: Reference Range: 0.5 0 - 1.05 Follitropin Qn 4.5 {IU/L} [facility] Work Phone: Comment on above: REF VALUESFOLLICULAR 3-47YZR-IGLND 12-25LUTEAL PHASE 2- 12MENOPAUSE 30-150PREPUBERTY 50% ADULTADULT MALE 2-10INFANTS 0-1 Glucose [Mass/Vol] 89 mg/dL 74 - 99 [facility] Work Phone: Lutropin Qn 4.3 {IU/L} [facility] Work Phone: Comment on above: REF VALUESFOLLICULAR PHASE 1.9-12.5MID-CYCLE 8.7-76.3LUTEAL PHASE 0.5-16.9POST MENOPAUSE 5.0-55.2CHILDREN 0- 6.0ADULT MALE 18-70 1.5- 9.3ADULT MALE >70 3.1-34.6 Potassium [Moles/Vol] 4.0 mmol/L 3.5 - 5.3 [facility] Work Phone: Sodium [Moles/Vol] 140 mmol/L 136 - 145 [facility] Work Phone: TSH Qn 1.90 m[IU]/L See Below [facility] Work Phone: Comment on above: Reference Range: 0.4 4 - 3.98 TSH testing is performed using different testing methodology at [facility] than at other [facility]. Direct result comparisons should only be made within the same method. Urea nitrogen [Mass/Vol] 13 mg/dL 6 - 23 [facility] Work Phone: No Panel Informationon 10-22 70 {mL/min/1.73m2} >90 [facility] Work Phone: Comment on above: CALCULATIONS OF RUSH MATED GFR ARE PERFORMED USING THE 2020 CKD-EPI STUDY REFIT EQUATION WITHOUT THE RACE VARIABLE FOR THE IDMS-TRACEABLE CREATININE METHODS.https://jasn.asnjournals.org/content/22/ASN.2 331376243 TESTOSTERONEon 10-22-2021 Testosterone [Mass/Vol] ng/dL Normal 0 - 70 [facility] Comment on above: Result Comment: Nand rolone decanoate, 11 Beta- hydroxytestosterone, androstenedione, testosterone propionate and 16-tzwl-dtjzjfsiszab strongly cross react with this test method. Biotin interference may cause falsely elevated results. Patients taking a Biotin dose of up to 5 mg/day should refrain from taking Biotin for 24 hours before sample collection. Providers may contact their local laboratory for further information. Testing by a more sensitive method (Testosterone Total LC-MS/MS) is recommended for accurate quantification of testosterone levels less than 60 ng/dL. Performed By: #### C JENARO #### [facility] [address] [place] [address] TSH WITH REFLEX TO FREE T4 I F ABNORMALon 10-22-2021 TSH Qn 1.90 m[IU]/L Normal 0.44 - 3.98 [facility] Comment on above: Result Comment: TSH testing is performed using different testing methodology at [facility] than at other [facility]. Direct result comparisons should only be made within the same method. Performed By: #### C JENARO #### [facility] [address] [place] [address] Testosterone, Levelon 2021 Testosterone [Mass/Vol] ng/dL 0 - 70 [facility] Work Phone: Comment on above: Nandrolone decanoate , 11 Beta-hydroxytestosterone, androstenedione, testosterone propionate and 14-lccw-artirqnwuzdt strongly cross react with this test method. Biotin interference may cause falsely elevated results. Patients taking a Biotin dose of up to 5 mg/day should refrain from taking Biotin for 24 hours before sample collection. Providers may contact their local laboratory for further information. Testing by a more sensitive method (Testosterone Total LC-MS/MS) is recommended for accurate quantification of testosterone levels less than 60 ng/dL. PHQ-2 VITALSon 10-19-2021 Adult depression screening assessment Yes -[facility] Work Phone: Tobacco use status [facility] b) No [facility] Work Phone: MRI L Spine without Contrast on 08-01-2021 MR Lumbar spine WO contrast Normal -[facility] Work Phone: MRI Cervical without Contras ton 07-12-2021 MR Cervical spine WO contrast Normal -[facility] Work Phone: Laboratory - Chemistry and C hemistry - challengeon 06-11-2021 Anion gap [Moles/Vol] 8 mmol/L below low threshold 10 - 20 -[facility] Work Phone: Calcium [Mass/Vol] 9.0 mg/dL 8.6 - 10.3 -[place] [facility] Work Phone: Chloride [Moles/Vol] 106 mmol/L 98 - 107 [facility] Work [facility]: CO2 [Moles/Vol] 28 mmol/L 21 - 32 -[facility] Work Phone: Creatinine [Mass/Vol] 0.95 mg/dL See Below -[facility] Work Phone: Comment on above: Reference Range: 0.5 0 - 1.05 Glucose [Mass/Vol] 87 mg/dL 74 - 99 -[facility] Work Phone: Potassium [Moles/Vol] 4.3 mmol/L 3.5 - 5.3 -[facility] Work Phone: Sodium [Moles/Vol] 138 mmol/L 136 - 145 -[facility] Work Phone: Urea nitrogen [Mass/Vol] 12 mg/dL 6 - 23 -[facility] Work Phone: No Panel Informationon 06-11 >60 >60 -[facility] Work Phone: Comment on above: CALCULATIONS OF RUSH MATED GFR ARE PERFORMED USING THE MDRD STUDY EQUATION FOR THE IDMS-TRACEABLE CREATININE METHODS. CLIN CHEM 2007;53:766-72 Normal -[facility] Work Phone: Please click on the link to view the study images Normal -[facility] Work Phone: Radiologyon 05-26-2021 XR Cervical spine 4 Views Normal [facility] Work Phone: XR Thoracic spine 3 Views Normal [facility] Work Phone: NOVEL CORONAVIRUS NASOPHARYN GEAL - [facility] SPECIMEN ONLYon 06-20-2020 SARS-COV-2 NOT DETECTED Normal NOT DETECTED [facility] Comment on above: Order Comment: Submi tter Name: MICHELL FISHER Agent Suspected: SARS-COV-2 This test was performed using real time PCR and has been approved for the qualitative detection of SARS-CoV-2 nucleic acid. The test has been authorized by the FDA under an emergency use authorization for use by authorized laboratories. Result Comment: Nega tive results do not preclude SARS-CoV-2 infection and should not be used as the sole basis for treatment or other patient management decisions. Optimum specimen types and timing for peak viral levels during infections caused by SARS-CoV-2 has not been determined. The possibility of a false negative result should especially be considered if the patient's recent exposures or clinical presentation suggest that SARS-CoV-2 infection is probable, and diagnostic tests for other causes of illness (e.g., other respiratory illness) are negative. Collection of a new specimen and re-testing may be necessary if the patient is critically ill or clinically deteriorating. Performed By: #### L [id number] #### [facility] (DEFAULT) [address] [place] [address] NOVEL CORONAVIRUS NASOPHARYN GEAL - [facility] SPECIMEN ONLYon 06-06-2020 SARS-COV-2 NOT DETECTED Normal NOT DETECTED [facility] Comment on above: Order Comment: Submi tter Name: MICHELL FREGOSOTNCAYLA Agent Suspected: SARS-COV-2 This test was performed using real time PCR and has been approved for the qualitative detection of SARS-CoV-2 nucleic acid. The test has been authorized by the FDA under an emergency use authorization for use by authorized laboratories. Result Comment: Nega tive results do not preclude SARS-CoV-2 infection and should not be used as the sole basis for treatment or other patient management decisions. Optimum specimen types and timing for peak viral levels during infections caused by SARS-CoV-2 has not been determined. The possibility of a false negative result should especially be considered if the patient's recent exposures or clinical presentation suggest that SARS-CoV-2 infection is probable, and diagnostic tests for other causes of illness (e.g., other respiratory illness) are negative. Collection of a new specimen and re-testing may be necessary if the patient is critically ill or clinically deteriorating. Performed By: #### L [id number] #### [facility] (DEFAULT) [address] [place] [address] NOVEL CORONAVIRUS NASOPHARYN GEAL - [facility] SPECIMEN ONLYon 05-23-2020 SARS-COV-2 NOT DETECTED Normal NOT DETECTED [facility] Comment on above: Order Comment: Submi tter Name: MICHELL NAVA SAGINAW Agent Suspected: SARS-COV-2 This test was performed using real time PCR and has been approved for the qualitative detection of SARS-CoV-2 nucleic acid. The test has been authorized by the FDA under an emergency use authorization for use by authorized laboratories. Result Comment: Nega tive results do not preclude SARS-CoV-2 infection and should not be used as the sole basis for treatment or other patient management decisions. Optimum specimen types and timing for peak viral levels during infections caused by SARS-CoV-2 has not been determined. The possibility of a false negative result should especially be considered if the patient's recent exposures or clinical presentation suggest that SARS-CoV-2 infection is probable, and diagnostic tests for other causes of illness (e.g., other respiratory illness) are negative. Collection of a new specimen and re-testing may be necessary if the patient is critically ill or clinically deteriorating. Performed By: #### L [id number] #### [facility] (DEFAULT) [address] [place] [address] NOVEL CORONAVIRUS NASOPHARYN GEAL - [facility] SPECIMEN ONLYon 05-09-2020 SARS-COV-2 NOT DETECTED Normal NOT DETECTED [facility] Comment on above: Order Comment: Submi tter Name: MICHELL NAVA SAGINAW Agent Suspected: SARS-COV-2 This test was performed using real time PCR and has been approved for the qualitative detection of SARS-CoV-2 nucleic acid. The test has been authorized by the FDA under an emergency use authorization for use by authorized laboratories. Result Comment: Nega tive results do not preclude SARS-CoV-2 infection and should not be used as the sole basis for treatment or other patient management decisions. Optimum specimen types and timing for peak viral levels during infections caused by SARS-CoV-2 has not been determined. The possibility of a false negative result should especially be considered if the patient's recent exposures or clinical presentation suggest that SARS-CoV-2 infection is probable, and diagnostic tests for other causes of illness (e.g., other respiratory illness) are negative. Collection of a new specimen and re-testing may be necessary if the patient is critically ill or clinically deteriorating. Performed By: #### L [id number] #### [facility] (DEFAULT) [address] [place] [address] NOVEL CORONAVIRUS NASOPHARYN GEAL - [facility] SPECIMEN ONLYon 05-02-2020 SARS-COV-2 NOT DETECTED Normal NOT DETECTED [facility] Comment on above: Order Comment: Submi tter Name: MICHELL AT ILDEFONSOTNIN Agent Suspected: SARS-COV-2 This test was performed using real time PCR and has been approved for the qualitative detection of SARS-CoV-2 nucleic acid. The test has been authorized by the FDA under an emergency use authorization for use by authorized laboratories. Result Comment: Nega tive results do not preclude SARS-CoV-2 infection and should not be used as the sole basis for treatment or other patient management decisions. Optimum specimen types and timing for peak viral levels during infections caused by SARS-CoV-2 has not been determined. The possibility of a false negative result should especially be considered if the patient's recent exposures or clinical presentation suggest that SARS-CoV-2 infection is probable, and diagnostic tests for other causes of illness (e.g., other respiratory illness) are negative. Collection of a new specimen and re-testing may be necessary if the patient is critically ill or clinically deteriorating. Performed By: #### L [id number] #### [facility] (DEFAULT) [address] [place] [address] NOVEL CORONAVIRUS NASOPHARYN GEAL - [facility] SPECIMEN ONLYon 04-25-2020 SARS-COV-2 NOT DETECTED Normal NOT DETECTED [facility] Comment on above: Order Comment: Submi tter Name: MICHELL FISHER Agent Suspected: SARS-COV-2 This test was performed using real time PCR and has been approved for the qualitative detection of SARS-CoV-2 nucleic acid. The test has been authorized by the FDA under an emergency use authorization for use by authorized laboratories. Result Comment: Nega tive results do not preclude SARS-CoV-2 infection and should not be used as the sole basis for treatment or other patient management decisions. Optimum specimen types and timing for peak viral levels during infections caused by SARS-CoV-2 has not been determined. The possibility of a false negative result should especially be considered if the patient's recent exposures or clinical presentation suggest that SARS-CoV-2 infection is probable, and diagnostic tests for other causes of illness (e.g., other respiratory illness) are negative. Collection of a new specimen and re-testing may be necessary if the patient is critically ill or clinically deteriorating. Performed By: #### L [id number] #### [facility] (DEFAULT) [address] [place] [address] NOVEL CORONAVIRUS NASOPHARYN AL - [facility] SPECIMEN ONLYon 02-29-2020 SARS-COV-2 NOT DETECTED Normal NOT DETECTED [facility] Comment on above: Order Comment: Submi tter Name: MICHELL FISHER Agent Suspected: SARS-COV-2 This test was performed using real time PCR and has been approved for the qualitative detection of SARS-CoV-2 nucleic acid. The test has been authorized by the FDA under an emergency use authorization for use by authorized laboratories. Result Comment: Nega tive results do not preclude SARS-CoV-2 infection and should not be used as the sole basis for treatment or other patient management decisions. Optimum specimen types and timing for peak viral levels during infections caused by SARS-CoV-2 has not been determined. The possibility of a false negative result should especially be considered if the patient's recent exposures or clinical presentation suggest that SARS-CoV-2 infection is probable, and diagnostic tests for other causes of illness (e.g., other respiratory illness) are negative. Collection of a new specimen and re-testing may be necessary if the patient is critically ill or clinically deteriorating. Performed By: #### L [id number] #### [facility] (DEFAULT) [address] [place] [address] C Urineon 04-03-2019 C Urine Final Report: Light growth of Normal skin josefa isolated Normal [facility] Comment on above: Order Comment: leaka ge of urine Performed By: #### 2 [id number] #### [facility] Microbiology Subsection [facility] [place] [address] XR Spine Lumbar w/ Obliqueso n 12-25-2018 XR Spine Lumbar w/ Obliques Exam Date/Time: 12/24/2018 14:26 EDT Reason for Exam: low back pain/pain thoracic spine Report STUDY: XR Spine Lumbar w/ Obliques;; 12/24/2018 2:26 pm INDICATION: low back pain/pain thoracic spine. COMPARISON: 07/28/2012 ACCESSION NUMBER(S): [id number] ORDERING CLINICIAN: Carlotta Neal FINDINGS: The lumbar vertebrae are normal in height. Narrowing of the L5-S1 intervertebral disc is present, with degenerative changes. The L5-S1 disc height has decreased since the last examination of 2012. Mild retrolisthesis of L5 on S1 is present in the upright position. There is also similar minimal retrolisthesis of L4 on L5. The remaining intervertebral discs are normal in height. The pedicles and posterior elements are intact. No lytic or blastic lesion. Degenerative changes are present, at the L3-4 L4-5 and L5-S1 facet joints bilaterally slightly increased since the previous examination. IMPRESSION: Worsening of the degenerative disc disease at L5-S1 since the previous examination with further loss in height of the disc. Mild retrolisthesis at L4-5 and L5-S1 levels. No acute pathology. FINAL REPORT Dictated: 12/25/2018 8:40 am Theron Paz MD Signed (Electronic Signature): 12/25/2018 8:40 am Signed by: Theron Paz MD Technologist: [facility] Normal [facility] Hepatitis B Surface Abson Hepatitis B Surf Ab, Qt 1000 mIU/mL Normal [facility] Comment on above: Result Comment: ---- REFERENCE VALUE Unvaccinated: <5.0 Vaccinated: >=12.0 Test Performed by: [facility] [address] [place] [address] Performed By: #### H BSABS #### Unless otherwise noted, all testing performed by [place] [address] CLIA: [id number] Text[employer] Printer: Xander Hager M.D. Hepatitis B Surface Abs Positive [facility] Comment on above: Result Comment: Jena ent is considered to be immune to infection with HBV. REFERENCE VALUE Unvaccinated: Negative Vaccinated: Positive Performed By: #### H BSABS #### Unless otherwise noted, all testing performed by [place] [address] CLIA: [id number] [employer] Printer: Xander Hager M.D. Lab Miscellaneouson 09-03-19 19 Status See Ref Lab Report [facility] Comment on above: Performed By: #### [id number] #### [place] Send Outs Subsection [facility] [place] [address] Lab Miscellaneouson 09-01-19 19 Test Name DANNY SPENCER [facility] Comment on above: Performed By: #### 1 [id number] #### [facility] Send Outs Subsection [address] [place] [id number] Vital Signs Date Time Vital Sign Value Performing Clinician Facility 12-14-2024 08:14-0400 Body height 172.7 cm Yoni Paige DO Work Phone: [facility] 12-14-2024 08:14-0400 Body mass index (BMI) [Ratio] 30.56 kg/m2 Yoni Paige DO Work Phone: [facility] 12-14-2024 08:14-0400 Body temperature 97 [degF] Yoni Paige DO Work Phone: [facility] 12-14-2024 08:14-0400 Body weight 91.17 kg Yoni Paige DO Work Phone: [facility] 12-14-2024 08:14-0400 Diastolic blood pressure 80 mm[Hg] Yoni Paige DO Work Phone: [facility] 12-14-2024 08:14-0400 Heart rate 73 /min Yoni Paige DO Work Phone: [facility] 12-14-2024 08:14-0400 Respiratory rate 16 /min Yoni Paige DO Work Phone: [facility] 12-14-2024 08:14-0400 SaO2% (BldA) [Mass fraction] 100 % Yoni Paige DO Work Phone: [facility] 12-14-2024 08:14-0400 Systolic blood pressure 102 mm[Hg] Yoni Paige DO Work Phone: [facility] 07-27-2024 16:04-0500 Body mass index (BMI) [Ratio] 31.54 kg/m2 Rajani Knutson MD Work Phone: [facility] 07-27-2024 16:04-0500 Body weight 94.08 kg Rajani Knutson MD Work Phone: [facility] 07-27-2024 16:04-0500 Diastolic blood pressure 70 mm[Hg] Rajani Knutson MD Work Phone: [facility] 07-27-2024 16:04-0500 Heart rate 68 /min Rajani Knutson MD Work Phone: [facility] 07-27-2024 16:04-0500 SaO2% (BldA) [Mass fraction] 100 % Rajani Knutson MD Work Phone: [facility] 07-27-2024 16:04-0500 Systolic blood pressure 110 mm[Hg] Rajani Knutson MD Work Phone: [facility] 04-01-2024 13:46-0400 Body height 172.7 cm Blaise Jose PA-C Work Phone: [facility] 04-01-2024 13:46-0400 Body mass index (BMI) [Ratio] 33.15 kg/m2 Blaise Jose PA-C Work Phone: [facility] 04-01-2024 13:46-0400 Body temperature 98.49 [degF] Blaise Jose PA-C Work Phone: [phone] [place] [address] 04-01-2024 13:46-0400 Body weight 98.88 kg Blaise Jose PA-C Work Phone: [facility] 04-01-2024 13:46-0400 Diastolic blood pressure 62 mm[Hg] Blaise Jose PA-C Work Phone: [facility] 04-01-2024 13:46-0400 Heart rate 64 /min Blaise Ojse PA-C Work Phone: [facility] 04-01-2024 13:46-0400 Respiratory rate 18 /min Blaise Jose PA-C Work Phone: [facility] 04-01-2024 13:46-0400 SaO2% (BldA) [Mass fraction] 100 % Blaise Jose PA-C Work Phone: [facility] 04-01-2024 13:46-0400 Systolic blood pressure 100 mm[Hg] Blaise Jose PA-C Work Phone: [facility] 09-05-2023 08:44-0500 Body mass index (BMI) [Ratio] 33.21 kg/m2 Rajani Knutson MD Work Phone: [facility] 09-05-2023 08:44-0500 Body temperature 98.01 [degF] Rajani Knutson MD Work Phone: [facility] 09-05-2023 08:44-0500 Body weight 99.07 kg Rajani Knutson MD Work Phone: [facility] 09-05-2023 08:44-0500 Diastolic blood pressure 80 mm[Hg] Rajani Knutson MD Work Phone: [facility] 09-05-2023 08:44-0500 Heart rate 84 /min Rajani Kntuson MD Work Phone: [facility] 09-05-2023 08:44-0500 SaO2% (BldA) [Mass fraction] 99 % Rajani Knutson MD Work Phone: [facility] 09-05-2023 08:44-0500 Systolic blood pressure 130 mm[Hg] Rajani Knutson MD Work Phone: [facility] 12-19-2022 13:50-0400 Body height 172.72 cm Rajani Knutson Work Phone: [facility] Work Phone: 12-19-2022 13:50-0400 Body mass index (BMI) [Ratio] 32.39 kg/m2 Rajani Knutson Work Phone: [facility] Work Phone: 12-19-2022 13:50-0400 Body surface area Derived from formula 2.1 m2 Rajani Knutson Work Phone: [facility] Work Phone: 12-19-2022 13:50-0400 Body weight 96.62 kg Rajani Knutson Work Phone: [facility] Work Phone: 12-19-2022 13:50-0400 Diastolic blood pressure 77 mm[Hg] Rajani L Zenia Work Phone: [facility] Work Phone: 12-19-2022 13:50-0400 Heart rate 73 /min Rajani L Zenia Work Phone: [facility] Work Phone: 12-19-2022 13:50-0400 Respiratory rate 20 /min Rajani L Zenia Work Phone: [facility] Work Phone: 12-19-2022 13:50-0400 Systolic blood pressure 117 mm[Hg] Rajani L Zenia Work Phone: [facility] Work Phone: 08-08-2022 10:33-0500 Body height 172.72 cm Rajani L Zenia Work Phone: [facility] Work Phone: 08-08-2022 10:33-0500 Body mass index (BMI) [Ratio] 31.02 kg/m2 Rajani L Zenia Work Phone: [facility] Work Phone: 08-08-2022 10:33-0500 Body surface area Derived from formula 2.06 m2 Rajani Kwoker Work Phone: [facility] Work Phone: 08-08-2022 10:33-0500 Body weight 92.53 kg Rajani L Zenia Work Phone: [facility] Work Phone: 08-08-2022 10:33-0500 Diastolic blood pressure 72 mm[Hg] Rajani L Zenia Work Phone: [facility] Work Phone: 08-08-2022 10:33-0500 Heart rate 76 /min Rajani L Zenia Work Phone: [facility] Work Phone: 08-08-2022 10:33-0500 Respiratory rate 20 /min Rajani L Zenia Work Phone: [facility] Work Phone: 08-08-2022 10:33-0500 Systolic blood pressure 119 mm[Hg] Rajani L Zenia Work Phone: [facility] Work Phone: 07-16-2022 13:22-0500 Body height 175.2 cm Rajani L Zenia Work Phone: -[facility] Work Phone: 07-16-2022 13:22-0500 Body mass index (BMI) [Ratio] 31.23 kg/m2 Rajani L Zenia Work Phone: [facility] Work Phone: 07-16-2022 13:22-0500 Body surface area Derived from formula 2.11 m2 Rajani L Zenia Work Phone: [facility] Work Phone: 07-16-2022 13:22-0500 Body temperature 99.1 [degF] Rajani L Zenia Work Phone: [facility] Work Phone: 07-16-2022 13:22-0500 Body weight 95.84 kg Rajani L Zenia Work Phone: [facility] Work Phone: 07-16-2022 13:22-0500 Diastolic blood pressure 64 mm[Hg] Rajani L Zenia Work Phone: [facility] Work Phone: 07-16-2022 13:22-0500 Heart rate 82 /min Rajani L Zenia Work Phone: [facility] Work Phone: 07-16-2022 13:22-0500 SaO2% (BldA) [Mass fraction] 100 % Rajani L Zenia Work Phone: [facility] Work Phone: 07-16-2022 13:22-0500 Systolic blood pressure 102 mm[Hg] Rajani L Zenia Work Phone: [facility] Work Phone: 04-01-2022 08:38-0400 Body height 175.26 cm Rajani L Zenia Work Phone: [facility] Work Phone: 04-01-2022 08:38-0400 Body mass index (BMI) [Ratio] 30.05 kg/m2 Rajani L Zenia Work Phone: [facility] Work Phone: 04-01-2022 08:38-0400 Body surface area Derived from formula 2.08 m2 Rajani L Zenia Work Phone: [facility] Work Phone: 04-01-2022 08:38-0400 Body temperature 97.3 [degF] Rajani L Zenia Work Phone: [facility] Work Phone: 04-01-2022 08:38-0400 Body weight 92.31 kg Rajani L Zenia Work Phone: [facility] Work Phone: 04-01-2022 08:38-0400 Diastolic blood pressure 80 mm[Hg] Rajani L Zenia Work Phone: [facility] Work Phone: 04-01-2022 08:38-0400 Heart rate 73 /min Rajani L Zenia Work Phone: [facility] Work Phone: 04-01-2022 08:38-0400 SaO2% (BldA) [Mass fraction] 97 % Rajani L Zenia Work Phone: [facility] Work Phone: 04-01-2022 08:38-0400 Systolic blood pressure 138 mm[Hg] Rajani L Zenia Work Phone: [facility] Work Phone: 12-13-2021 09:25-0400 Body height 175.26 cm Rajani L Zenia Work Phone: AW-HKCDN-Yakcwyeah Work Phone: 12-13-2021 09:25-0400 Body mass index (BMI) [Ratio] 30.57 kg/m2 Rajani L Zenia Work Phone: DB-QVUND-Sepejyjsc Work Phone: 12-13-2021 09:25-0400 Body surface area Derived from formula 2.1 m2 Rajani L Zenia Work Phone: KE-LRQJX-Kwuvoioob Work Phone: 12-13-2021 09:25-0400 Body weight 93.9 kg Rajani L Zenia Work Phone: CV-WGABA-Zvmcqbofa Work Phone: 12-13-2021 09:25-0400 Diastolic blood pressure 74 mm[Hg] Rajani L Zenia Work Phone: UB-FXJFB-Vxfdagtql Work Phone: 12-13-2021 09:25-0400 Heart rate 67 /min Rajani L Zenia Work Phone: CU-ZCKTE-Fbklvctng Work Phone: 12-13-2021 09:25-0400 Respiratory rate 18 /min Rajani L Zenia Work Phone: PI-BNWFD-Yvpzxugfv Work Phone: 12-13-2021 09:25-0400 SaO2% (BldA) [Mass fraction] 97 % Rajani L Zenia Work Phone: JN-ZJEYT-Qamaldwuc Work Phone: 12-13-2021 09:25-0400 Systolic blood pressure 114 mm[Hg] Rajani L Zenia Work Phone: GE-HQHZH-Vpclqbdil Work Phone: 11-23-2021 08:00-0400 Body height 175.26 cm Rajani L Zenia Work Phone: [facility] Work Phone: 11-23-2021 08:00-0400 Body mass index (BMI) [Ratio] 31.28 kg/m2 Rajani L Zenia Work Phone: [facility] Work Phone: 11-23-2021 08:00-0400 Body surface area Derived from formula 2.12 m2 Rajani L Zenia Work Phone: [facility] Work Phone: 11-23-2021 08:00-0400 Body weight 96.07 kg Rajani Bernard Zenia Work Phone: [facility] Work Phone: 11-23-2021 08:00-0400 Diastolic blood pressure 80 mm[Hg] Rajani L Zenia Work Phone: [facility] Work Phone: 11-23-2021 08:00-0400 Heart rate 80 /min Rajani L Zenia Work Phone: [facility] Work Phone: 11-23-2021 08:00-0400 Systolic blood pressure 120 mm[Hg] Rajani L Zenia Work Phone: [facility] Work Phone: 10-19-2021 08:09-0400 Body height 175.26 cm Rajani L Zenia Work Phone: [facility] Work Phone: 10-19-2021 08:09-0400 Body mass index (BMI) [Ratio] 32.12 kg/m2 Rajani L Zenia Work Phone: [facility] Work Phone: 10-19-2021 08:09-0400 Body surface area Derived from formula 2.14 m2 Rajani L Zenia Work Phone: [facility] Work Phone: 10-19-2021 08:09-0400 Body weight 98.65 kg Rajani L Zenia Work Phone: [facility] Work Phone: 10-19-2021 08:09-0400 Diastolic blood pressure 80 mm[Hg] Rajani L Zenia Work Phone: [facility] Work Phone: 10-19-2021 08:09-0400 Heart rate 66 /min Rajani L Zenia Work Phone: [facility] Work Phone: 10-19-2021 08:09-0400 Systolic blood pressure 118 mm[Hg] Rajani L Zenia Work Phone: [facility] Work Phone: 09-12-2021 11:03-0500 Body mass index (BMI) [Ratio] 31.9 kg/m2 Rajani L Zenia Work Phone: [facility] Work Phone: 09-12-2021 11:03-0500 Body surface area Derived from formula 2.13 m2 Rajani L Zenia Work Phone: [facility] Work Phone: 09-12-2021 11:03-0500 Body temperature 97.1 [degF] Rajani Knutson Work Phone: [facility] Work Phone: 09-12-2021 11:03-0500 Body weight 97.98 kg Rajani Knutson Work Phone: [facility] Work Phone: 09-12-2021 11:03-0500 Diastolic blood pressure 78 mm[Hg] Rajani Kwoker Work Phone: [facility] Work Phone: 09-12-2021 11:03-0500 Heart rate 71 /min Rajani Kwoker Work Phone: [facility] Work Phone: 09-12-2021 11:03-0500 Respiratory rate 16 /min Rajani Knutson Work Phone: [facility] Work Phone: 09-12-2021 11:03-0500 Systolic blood pressure 122 mm[Hg] Rajani Kntuson Work Phone: [facility] Work Phone: 07-19-2021 13:05-0500 Body height 175.26 cm Rajani Kwoker Work Phone: [facility] Work Phone: 07-19-2021 13:05-0500 Body mass index (BMI) [Ratio] 32.49 kg/m2 Rajani Kwoker Work Phone: [facility] Work Phone: 07-19-2021 13:05-0500 Body surface area Derived from formula 2.15 m2 Rajani Kwoker Work Phone: [facility] Work Phone: 07-19-2021 13:05-0500 Body temperature 97.9 [degF] Rajani Kwoker Work Phone: [facility] Work Phone: 07-19-2021 13:05-0500 Body weight 99.79 kg Rajani Kwoker Work Phone: [facility] Work Phone: 07-19-2021 13:05-0500 Diastolic blood pressure 71 mm[Hg] Rajani L Zenia Work Phone: [facility] Work Phone: 07-19-2021 13:05-0500 Heart rate 76 /min Rajani Kwoker Work Phone: [facility] Work Phone: 07-19-2021 13:05-0500 Respiratory rate 12 /min Rajani Kwoker Work Phone: [facility] Work Phone: 07-19-2021 13:05-0500 Systolic blood pressure 106 mm[Hg] Rajani Kwoker Work Phone: [facility] Work Phone: 06-11-2021 08:13-0500 Body height 175.26 cm Rajani Kwoker Work Phone: [facility] Work Phone: 06-11-2021 08:13-0500 Body mass index (BMI) [Ratio] 32.49 kg/m2 Rajani Kwoker Work Phone: [facility] Work Phone: 06-11-2021 08:13-0500 Body surface area Derived from formula 2.15 m2 Rajani Kwoker Work Phone: [facility] Work Phone: 06-11-2021 08:13-0500 Body temperature 97.7 [degF] Rajani Kwoker Work Phone: [facility] Work Phone: 06-11-2021 08:13-0500 Body weight 99.79 kg Rajani Kwoker Work Phone: [facility] Work Phone: 06-11-2021 08:13-0500 Diastolic blood pressure 76 mm[Hg] Rajani L Zenia Work Phone: [facility] Work Phone: 06-11-2021 08:13-0500 Heart rate 69 /min Rajani L Zenia Work Phone: [facility] Work Phone: 06-11-2021 08:13-0500 Respiratory rate 16 /min Rajani Kwoker Work Phone: [facility] Work Phone: 06-11-2021 08:13-0500 Systolic blood pressure 109 mm[Hg] Rajani L Zenia Work Phone: [facility] Work Phone: 09-16-2019 17:18-0500 BMI (Body Mass Index) 31.63 kg/m2 Jose Antonio Mendenhall-Jbar SZ-DYAEH-Uaisbkgzs Work Phone: 09-16-2019 17:18-0500 Body weight 94.35 kg Jose Antonio Mendenhall-Jbar YC-QLQUM-Nbisql est Work Phone: 09-16-2019 17:18-0500 BP Diastolic 84 mm[Hg] Jose Antonio El-Nashar UQ-XPTBL-Zjreus est Work Phone: Comment on above: Location: E; Position: Sitting 09-16-2019 17:18-0500 BP Systolic 121 mm[Hg] Jose Antonio El-Nashar MD-SPVXH-Izozmq est Work Phone: Comment on above: Location: E; Position: Sitting 09-16-2019 17:18-0500 BSA (Body Surface Area) 2.08 m2 Jose Antonio [facility] Work Phone: 09-16-2019 17:18-0500 Height 172.72 cm Jose Antonio [facility] Work Phone: 09-16-2019 17:18-0500 Pulse (Heart Rate) 66 /min Jose Antonio [facility] Work Phone: 09-16-2019 17:18-0500 Pulse Oximetry 100 % Jose Antonio [facility] Work Phone: Comment on above: Source: 09-16-2019 17:18-0500 Respiratory Rate 20 /min Jose Antonio [facility] Work Phone: 09-13-2019 17:41-0500 BMI (Body Mass Index) 31.67 kg/m2 Jose Antonio [facility] Work Phone: 09-13-2019 17:41-0500 Body Temperature 97.3 [degF] Jose Antonio [facility] Work Phone: 09-13-2019 17:41-0500 Body weight 94.48 kg Jose Antonio [facility] Work Phone: 09-13-2019 17:41-0500 BP Diastolic 72 mm[Hg] Jose Antonio [facility] Work Phone: 09-13-2019 17:41-0500 BP Systolic 118 mm[Hg] Jose Antonio [facility] Work Phone: 09-13-2019 17:41-0500 BSA (Body Surface Area) 2.08 m2 Jose Antonio [facility] Work Phone: 09-13-2019 17:41-0500 Height 172.72 cm Jose Antonio [facility] Work Phone: 09-13-2019 17:41-0500 Pulse (Heart Rate) 87 /min Jose Antonio [facility] Work Phone: 05-09-2017 11:06-0400 BMI (Body Mass Index) 24.98 kg/m2 Osmar Purvis [facility] Work Phone: 05-09-2017 11:06-0400 BP Diastolic 75 mm[Hg] Osmar Purvis [facility] Work Phone: 05-09-2017 11:06-0400 BP Systolic 111 mm[Hg] Osmar Purvis [facility] Work Phone: 05-09-2017 11:06-0400 Height 172.7 cm Osmar Purvis [facility] Work Phone: 05-09-2017 11:06-0400 Pulse (Heart Rate) 58 /min Osmar Purvis [facility] Work Phone: 05-09-2017 11:06-0400 Pulse Oximetry 99 % Osmar Purvis [facility] Work Phone: 05-09-2017 11:06-0400 Weight 74.53 kg Osmar Purvis [facility] Work Phone: 1975 00:00-0400 >na< Najma Lay Dept. of Dermatology Encounters Encounter Date Encounter Type Care Provider Facility Start: 12-23-2024 End: 12-23-2024 Subsequent hospital visit by physician [facility] Comment on above: Unspecified injury o f left lower leg, initial encounter Start: 12-23-2024 End: 12-23-2024 ambulatory [facility] Marco Antonio [facility] Start: 12-14-2024 End: 12-14-2024 Emergency department patient visit Yoni G Teja NIX Work Phone: [facility] Comment on above: Injury of left knee, initial encounter (Primary Dx) Start: 07-27-2024 End: 07-27-2024 Office outpatient visit 15 minutes Rajani Knutson MD Work Phone: [facility] Comment on above: Internal hemorrhoids (Primary Dx) Start: 07-27-2024 End: 07-27-2024 ambulatory [facility] Start: 04-01-2024 End: 04-01-2024 Patient encounter procedure Blaise Garcia PA-C Work Phone: [facility] Comment on above: Right acute otitis m edia (Primary Dx) Start: 04-01-2024 End: 04-01-[address] [facility] Start: 09-05-2023 End: 09-06-2023 ambulatory [facility] Start: 09-05-2023 End: 09-05-2023 Subsequent hospital visit by physician Tono X-Ray 1 [facility] Comment on above: Right elbow pain Start: 09-05-2023 End: 09-05-2023 Office outpatient visit 25 minutes Rajani Knutson MD Work Phone: [facility] Comment on above: Right elbow pain (Pr imary Dx); Difficulty sleeping Start: 08-01-2023 End: 08-01-2023 Subsequent hospital visit by physician Tono Ultrasound 2 [facility] Comment on above: Abnormal mammogram Start: 01-30-2023 AUDIT Rajani raya Work Phone: [facility] Work Phone: Start: 01-01-2023 AUDIT Rajani raya Work Phone: [facility] Work Phone: Start: 12-23-2022 Chart Update Rajani raya Work Phone: [facility] Work Phone: Start: 12-19-2022 Patient encounter procedure Rajani Bernard Zenia Work Phone: [facility] Work Phone: Start: 12-19-[address] Rajani Muniz acility:[id number] Start: 12-11-2022 End: 12-12-[address] Rajani Knutson Facility:[id number] Start: 08-21-[address] Rajani Muniz acility:[id number] Start: 08-19-2022 Chart Update Rajani Marco Antonio Jabari r Work Phone: [facility] Work Phone: Start: 08-15-[address] Angeli Perkins tthew Zumbar Facility:[id number] Start: 08-08-2022 Patient encounter procedure Rajani Knutson Work Phone: [facility] Work Phone: Start: 08-08-[address] Rajani Muniz acility:[id number] Start: 07-16-2022 Patient encounter procedure Rajani Kwoker Work Phone: [facility] Work Phone: Start: 07-16-[address] Mrs[address] Lj August Fa cility:[id number] Start: 07-11-2022 AUDIT Rajani L Jabari r Work Phone: [facility] Work Phone: Start: 04-22-2022 Chart Update Rajani L Jabari r Work Phone: [id number]-Ilrdhjchsci 210 Work Phone: Start: 04-02-2022 Chart Update Rajani L Jabari r Work Phone: [facility] Work Phone: Start: 04-01-2022 Office outpatient vi sit 15 minutes Rajani Kwoker Work Phone: [facility] Work Phone: Start: 04-01-2022 ambulatory RAJANI KNUTSON Facil ity:[id number] Start: 03-24-2022 Chart Update Rajani Barboza r Work Phone: [id number]-KXTVQ-Ytreuexipep 210 UI Work Phone: Start: 03-15-2022 [facility], Provider: Roel Thomason, Status: Pen, Time: 10:00 AM Rajani Knutson Work Phone: KS-GTOCV-Shxfccifqli [address] UI Work Phone: Start: 03-13-2022 Chart Update Rajani Barboza r Work Phone: TW-FPOCB-Cddunyewzbh 210 UI Work Phone: Start: 03-06-2022 Chart Update Rajani Barboza r Work Phone: CV-NWWJE-Afzuhgedsvb 210 UI Work Phone: Start: 03-02-2022 Chart Update Rajani Barboza r Work Phone: MQ-HLGFY-Ftpzyqkfidu 210 UI Work Phone: Start: 02-04-2022 Phys/qhp telephone evaluation 11-20 min Rajani Knutson Work Phone: DI-NUQEV-Axpscixswfu 210 UI Work Phone: Start: 02-04-2022 ambulatory RAJANI KNUTSON Facil ity:[id number] Start: 01-07-2022 AUDIT Raajni Barboza r Work Phone: UG-WPNCL-Tnrtzkscoji 210 UI Work Phone: Start: 12-27-2021 Office outpatient vi sit 40 minutes Rajani Knutson Work Phone: MQ-BKEAV-Qngmkhfe SCC Work Phone: Start: 12-25-2021 Patient encounter procedure Rajaniatul Kwoker Work Phone: AB-OWGHW-Hufpxmpbe Work Phone: Start: 12-13-2021 Patient encounter procedure Rajani L Zenia Work Phone: GU-EEMKI-Thdxoamks Work Phone: Start: 11-23-2021 Office outpatient vi sit 15 minutes Rajani L Zenia Work Phone: [facility] Work Phone: Start: 11-23-2021 ambulatory RAJANI LEE ZENIA Facil ity:[id number] Start: 11-01-2021 Chart Update Rajani L Jabari r Work Phone: [facility] Work Phone: Start: 10-23-2021 Chart Update Rajani L Jabari r Work Phone: [facility] Work Phone: Start: 10-22-2021 AUDIT Rajani L Jabari r Work Phone: [facility] Work Phone: Start: 10-19-2021 Office outpatient vi sit 25 minutes Rajani L Zenia Work Phone: [facility] Work Phone: Start: 10-19-2021 ambulatory RAJANI DALE ZENIA Facil ity:[id number] Start: 10-04-2021 ambulatory RAJANI DALE ZENIA Facil ity:[id number] Start: 09-12-2021 Patient encounter procedure Rajani L Zenia Work Phone: [facility] Work Phone: Start: 09-05-2021 ambulatory Rajani Zenia Facility: [facility] Start: 08-02-2021 Chart Update Rajani L Jabari r Work Phone: [facility] Work Phone: Start: 07-16-2021 Chart Update Rajani L Jabari r Work Phone: [facility] Work Phone: Start: 06-12-2021 Chart Update Rajani Barboza r Work Phone: [facility] Work Phone: Start: 06-12-2021 Chart Update Rajani raya Work Phone: [facility] Work Phone: Start: 06-11-2021 Patient encounter procedure Rajani Knutson Work Phone: [facility] Work Phone: Start: 03-05-2021 Office outpatient ne w 45 minutes Najma Lay Dept. of Dermatology Start: 03-05-2021 Office outpatient vi sit 15 minutes Najma Lay Dept. of Dermatology Start: 03-21-2020 Patient encounter procedure Alicia Ku [facility] Work Phone: Start: 03-14-2020 Patient encounter procedure Alicia Ku [facility] Work Phone: Start: 10-13-2019 Patient encounter procedure Alicia Ku [facility] Work Phone: Start: 10-11-2019 Patient encounter procedure Alicia Ku [facility] Work Phone: Start: 09-16-2019 Patient encounter procedure Jose Antonio Piresar AR-AKMRY-Qeelrzeqo Work Phone: Start: 09-13-2019 Patient encounter procedure Jose Antonio Piresar XN-EYYNQ-Sbhovrewo Work Phone: Start: 05-07-2019 Patient encounter procedure Jose Antonio Mendenhall-Jbar MK-KJLZG-Pmmsztmtp Work Phone: Start: 04-01-2019 Patient encounter procedure Jose Antonio Mendenhall-Jbar LR-VFXSR-Micbogfjt Work Phone: Start: 09-17-2018 Patient encounter procedure Jersey Guardado Facility:[facility] Start: 09-17-2018 End: 09-17-2018 Patient encounter procedure Jersey Guardado Work Phone: [facility] Start: 04-08-2018 Patient encounter procedure Jose Antonio Ivy RT-KOMKC-Qlkctybmh Work Phone: Start: 01-14-2018 Ambulatory ROSA LUONG [facility] Ambulatory Start: 10-24-2017 Patient encounter procedure Jose Antonio Ivy SD-UPJBA-Obszjpgcy Work Phone: Start: 05-09-2017 Ambulatory OSMAR PURVIS [facility] Ambulatory Start: 05-09-2017 End: 05-09-2017 Office outpatient new 20 minutes Osmar Purvis Work Phone: [facility] Comment on above: Preoperative clearan ce Start: 04-28-2017 End: 04-28-2017 Patient encounter procedure Jazmine Loveuett Work Phone: [facility] Manual pelvic examination Rajani L Zenia Work Phone: [facility] Work Phone: Comment on above: 12/10/13;WNL; Menarche Rajani L Zenia Work Phone: [facility] Work Phone: Comment on above: Onset Date: 1988 AGE 12; Patient encounter status Rajani L Zenia Work Phone: CI-HXOCS-Njynfsyyrhy 210 UI Work Phone: Preoperative state Osmar Purvis [facility] Work Phone: Procedures Date Procedure Procedure Detail Performing Clinician Start: 12-14-2024 Radiologic examinati on knee 1/2 views Yoni Paige DO Work Phone: Start: 09-05-2023 SALO-WITH REFLEX TO YULIA RAJANI ZENIA Start: 09-05-2023 C-reactive protein BERNIE LAS ZENIA Start: 09-05-2023 CITRULLINE ANTIBODY, IGG RAJANI ZENIA Start: 09-05-2023 RHEUMATOID FACTOR DOUGL ZENIA Start: 09-05-2023 SEDIMENTATION RATE, AUTOMATED RAJANI ZENIA Start: 09-05-2023 Radex elbow complete minimum 3 views Rajani Knutson MD Work Phone: Start: 08-01-2023 Us breast uni real t arcenio with image limited Lj August [employer]ICATION LEAD Work Phone: Start: 07-28-2023 Mammography Tono 2 Start: 12-11-2022 CBC panel - Blood by Automated count RAJANI ZENIA Start: 12-11-2022 Comprehensive metabo lic 2000 panel - Serum or Plasma RAJANI ZENIA Start: 12-11-2022 TSH WITH REFLEX TO F REE T4 IF ABNORMAL RAJANI ZENIA Start: 03-07-2022 Antibody screen Comment on above: Performed By: #### T +S #### [facility] [address] [place] [address] Start: 03-05-2022 Antibody screen RAJANI KNUTSON Comment on above: Performed By: #### U [facility] #### [facility] [address] [place] [address] Start: 03-01-2022 Antibody screen RAJANI KNUTSON Comment on above: Order Comment: NO PH LEB ID, NOTIFIED ROBERTO Mac , 03/04/2022 12:49TEST TYPE + SCREEN WAS CANCELLED, 03/01/2022 18:59 NO PHLEB ID ON TUBE.CANCELLED.. Result Comment: NO P HLEB ID, NOTIFIED ROBERTO Mac , 03/04/2022 12:49 Performed By: #### C JENARO #### [facility] [address] [place] [address] Start: 08-06-2021 Epidural steroid injection Rajani Knutson Work Phone: Comment on above: C7-T1 ARNEL; Start: 07-17-2020 Iadna streptococcus group a amplified probe tq Alicia Ku Start: 09-16-2019 Culture bacterial quanttative colony count urine Jose Antonio Ivy Start: 01-06-2017 Colonoscopy Yoni anaya DO Work Phone: Bilateral salpingect kay with oophorectomy Jose Antonio Biju Colonoscopy Jose Antonio Abdirashid-Jessa r Colposcopy Jose Antonio Lin r Fallopian tube excision Juve Abdirashid-Tracy Comment on above: Bilateral Salpingect kay; History of Bladder Surgery S herjaron Mendenhall-Tracy History of Knee Surgery Juve if Abdirashid-Tracy Hysterectomy Jose Antonio Abdirashid-Jessa r Comment on above: VAGINALNON-CANCEROUS Pt thinks her cervix was removed - not 100% sure; Other bilateral liga tion and division of fallopian tubes Jose Antonio Abdirashid-Tracy Tonsillectomy Jose Antonio Pranay chiu Plan of Treatment Date Care Activity Detail Author Start: 01-06-2027 Screening for malign ant neoplasm of colon [facility] Start: 02-23-2026 DTaP/Tdap/Td Vaccine s (2 - Td or Tdap) DTaP/Tdap/Td Vaccines (2 - Td or Tdap) [facility] Start: 03-21-2025 Influenza vaccination Influenz a Vaccine (Season Ended) [facility] Start: 2024 Pneumococcal vaccination Pneum ococcal Vaccine (1 of 1 - PCV) [facility] Start: 2024 Zoster Vaccines (1 of 2) Zoste r Vaccines (1 of 2) [facility] Start: 08-10-2024 End: 08-10-2024 Patient encounter procedure 08/10/2024 8:45 AM EST Office Visit [facility] [address] [place] [address] Everette Peck MD [address] [facility], [address] [place] [address] [facility] Start: 07-28-2024 Screening for malign ant neoplasm of breast Mammogram [facility] Start: 03-21-2024 COVID-19 Vaccine ( season) COVID-19 Vaccine ( season) [facility] Start: 03-21-2024 COVID-19 Vaccine ( season) COVID-19 Vaccine ( season) [facility] Start: 03-21-2024 Influenza vaccination Influenza Vacc ine (#1) [facility] Start: 10-14-2023 End: 10-14-2023 Patient encounter procedure 10/14/2023 9:20 AM EDT Office Visit [facility] [address] [place] [id number] Rajani Knutson MD [address] [facility], [address] [place] [address] [facility] Start: 09-05-2023 End: 09-05-2024 C reactive protein [Mass/volume] in Serum or Plasma C-Reactive Protein Lab Routine Right elbow pain Expected: 09/05/2023 (Approximate), Expires: 09/05/2024 [facility] Work Phone: Comment on above: Expected: 09/05/2023 (Approximate), Expires: 09/05/2024 Start: 09-05-2023 End: 09-05-2024 Cyclic citrullinated peptide IgG Ab [Units/volume] in Serum or Plasma Citrulline Antibody, IgG Lab Routine Right elbow pain Expected: 09/05/2023 (Approximate), Expires: 09/05/2024 [facility] Work Phone: Comment on above: Expected: 09/05/2023 (Approximate), Expires: 09/05/2024 Start: 09-05-2023 End: 09-05-2024 Erythrocyte sedimentation rate Sedimentation Rate Lab Routine Right elbow pain Expected: 09/05/2023 (Approximate), Expires: 09/05/2024 [facility] Work Phone: Comment on above: Expected: 09/05/2023 (Approximate), Expires: 09/05/2024 Start: 09-05-2023 End: 09-05-2024 Nuclear Ab [Presence] in Serum by Hep2 substrate SALO with Reflex to YULIA Lab Routine Right elbow pain Expected: 09/05/2023 (Approximate), Expires: 09/05/2024 [facility] Work Phone: Comment on above: Expected: 09/05/2023 (Approximate), Expires: 09/05/2024 Start: 09-05-2023 End: 09-05-2024 Rheumatoid factor [Units/volume] in Serum by Nephelometry Rheumatoid factor Lab Routine Right elbow pain Expected: 09/05/2023 (Approximate), Expires: 09/05/2024 [facility] Work Phone: Comment on above: Expected: 09/05/2023 (Approximate), Expires: 09/05/2024 Start: 09-05-2023 End: 09-05-2024 XR Elbow Views XR elbow left 1-2 views Imaging Routine Right elbow pain Expected: 09/05/2023, Expires: 09/05/2024 [facility] Work Phone: Comment on above: Expected: 09/05/2023 , Expires: 09/05/2024 Start: 09-05-2023 End: 09-05-2023 Patient encounter procedure 09/05/2023 8:40 AM EST Office Visit [facility] [address] [place] [id number] Rajani Knutson MD [address] [facility], [address] [place] [address] [facility] Start: 08-11-2023 End: 08-11-2023 ambulatory 08/11/2023 3:[address] [facility] [address] [place] [id number] Navya Corral, PT [address] [facility] [place] [address] [facility] Start: 03-21-2023 COVID-19 Vaccine () COVID-19 Vaccine () [facility] Start: 03-21-2023 Influenza vaccination Influenza Vacc ine (#1) [facility] Start: 05-29-2022 FUV, Provider: Rajani Knutson, Status: Pen, Time: 8:20 AM [facility]UV, Provider: Rajani Knutson, Status: Pen, Time: 8:20 AM [facility] Work Phone: Start: 04-01-2022 POV, Provider: Roel Thomason, Status: Pen, Time: 11:30 AM POV, Provider: Roel Thomason, Status: Pen, Time: 11:30 AM TT-XMKCV-Tdelxnufahv 210 UI Work Phone: Start: 03-20-2022 SURGAMC, Provider: Roel Thomason, Status: Pen, Time: 9:00 AM SURGAMC, Provider: Roel Thomason, Status: Pen, Time: 9:00 AM DJ-HJPJA-Mepauvcyvwq 210 UI Work Phone: Start: 03-15-2022 SURGAMC, Provider: Roel Thomason, Status: Pen, Time: 10:00 AM SURGAMC, Provider: Roel Thomason, Status: Pen, Time: 10:00 AM NC-RJESF-Nxigytjyxdj 210 UI Work Phone: Start: 02-04-2022 VIRFUVHOME, Provider : Roel Thomason, Status: Pen, Time: 5:00 PM VIRFUVHOME, Provider: Roel Thomason, Status: Pen, Time: 5:00 PM OR-XZWVL-Grkemhno SCC Work Phone: Start: 12-27-2021 FUV, Provider: Eboni Sommers, Status: Pen, Time: 3:45 PM FUV, Provider: Eboni Sommers, Status: Pen, Time: 3:45 PM IO-CMFGQ-Xdoyrkleb Work Phone: Start: 12-27-2021 FUV, Provider: Eboni Sommers, Status: Pen, Time: 1:00 PM FUV, Provider: Eboni Sommers, Status: Pen, Time: 1:00 PM VQ-GFKOQ-Ydbgxnelf Work Phone: Start: 12-25-2021 WOUEVALADL, Provider : JENNY WOUND CARE NURSE,[id number], Status: Pen, Time: 9:00 AM WOUEVALADL, Provider: JENNY WOUND CARE NURSE,[id number], Status: Pen, Time: 9:00 AM XH-FPNEA-Qwfvppcoj Work Phone: Start: 12-13-2021 FUV, Provider: Madonna Bernardo, Status: Pen, Time: 9:30 AM FUV, Provider: Madonna Bernardo, Status: Pen, Time: 9:30 AM [facility] Work Phone: Start: 11-22-2021 FUV, Provider: Rajani Knutson, Status: Pen, Time: 8:20 AM FUV, Provider: Rajani Knutson, Status: Pen, Time: 8:20 AM [facility] Work Phone: Start: 08-23-2021 FUV, Provider: Rocio Robles, Status: Pen, Time: 2:30 PM FUV, Provider: Rocio Robles, Status: Pen, Time: 2:30 PM [facility]: Start: 08-06-2021 SURGAMC, Provider: Angeli Bingham, Status: Pen, Time: 11:15 AM SURGAMC, Provider: Angeli Bingham, Status: Pen, Time: 11:15 AM [facility] Work Phone: Start: 07-19-2021 FUV, Provider: Rocio Robles, Status: Pen, Time: 1:15 PM FUV, Provider: Rocio Robles, Status: Pen, Time: 1:15 PM [facility] Work [facility]: Start: 07-16-2021 NPVGENERAL, Provider : Tee Salazar, Status: Pen, Time: 1:45 PM NPVGENERAL, Provider: Tee Salazar, Status: Pen, Time: 1:45 PM [facility] Work Phone: Start: 02-13-2021 COVID-19 Vaccine (3 - Moderna series) COVID-19 Vaccine (3 - Moderna series) [facility] Start: 03-21-2018 Influenza vaccinatio n given SEQUENTIAL INFLUENZA VACCINE (#1) [facility] Start: 05-13-2017 Ambulatory 05/13/2017 Hos pital Encounter Марина, Jazmine Kim MD [address] [place] [address] [phone] [facility] Start: 03-21-2017 Influenza vaccination SEQUENTI AL INFLUENZA VACCINE (#1) [facility] Work Phone: Start: 12-10-1995 Screening for malign ant neoplasm of cervix [facility] Start: 1993 Hepatitis B Vaccines (1 of 3 - 19+ 3-dose series) Hepatitis B Vaccines (1 of 3 - 19+ 3-dose series) [facility] Start: 1992 Diabetes mellitus screening Diabetes Screening [facility] Start: 1992 Hepatitis C screening Hepatitis C [facility] Start: 12-10-1975 MMR Vaccines (1 of 1 - Standard series) MMR Vaccines (1 of 1 - Standard series) [facility] Start: 1974 Hepatitis B Vaccines (1 of 3 - 3-dose series) Hepatitis B Vaccines (1 of 3 - 3-dose series) [facility] Start: 1974 HIV screening HIV Screening [facility] Start: 1974 Lipid [address] Lipid Panel [facility] Start: 1974 Protein mass conc Mammogram [facility] Start: 1974 Screening for malign ant neoplasm of cervix PAP SMEAR [facility] Work Phone: Start: 1974 Screening for malign ant neoplasm of colon [facility] Start: 1974 Tetanus vaccination TETANUS EVERY 10 YR [facility] Work Phone: Start: 1974 Yearly Adult Physical Yearly Adult P hysical [facility] End: 12-23-2024 MR Knee - left WO contrast MR knee left wo IV contrast Imaging STAT Unspecified injury of left lower leg, initial encounter Once for 1 Occurrences starting 12/23/2024 until 12/23/2024 [facility] Work Phone: Comment on above: Once for 1 Occurrenc es starting 12/23/2024 until 12/23/2024 End: 09-05-2023 XR Elbow - right 3 Views [facility] Work Phone: Comment on above: Once for 1 Occurrenc es starting 09/05/2023 until 09/05/2023 Immunizations Immunization Date Immunization Notes Care Provider Samaria mariscal 12-19-2020 Moderna COVID-19 Vaccine 100 MCG/0.5ML Intramuscular Suspension Rajani Knutson Work Phone: [facility] Work Phone: 11-21-2020 Moderna COVID-19 Vaccine 100 MCG/0.5ML Intramuscular Suspension Rajani Knutson Work Phone: [facility] Work Phone: 09-08-2020 influenza, injectabl e, quadrivalent, preservative free; Translations: [Flulaval Quadrivalent 0.5 ML Intramuscular Suspension Prefilled Syringe] Rajani Knutson Work Phone: [facility] Comment on above: Series: 09-08-2020 influenza virus vaccine, unspecified formulation [address] Work Phone: 02-24-2016 tetanus toxoid, redu lalita diphtheria toxoid, and acellular pertussis vaccine, adsorbed Jose Antonio [facility] Work Phone: Comment on above: Series: 1974 pneumococcal conjuga te vaccine, 7 valent Rajani Knutson MD Work Phone: [facility] Work Phone: 1974 pneumococcal conjuga te vaccine, 7 valent Najma Lay [facility] Payers Date Payer Category Payer Worker's Compensation TAYLOR Hamilton [facility] [employer] [id number] 2024 Unknown [id number] 2022 Blue [employer] Managed Care [facility] [id number] 2022 Unknown 2021 Self-pay 2011 Unknown [id number] 2011 Unknown RICK POP [facility] xxxxxxxxxxxxxxx 2011-Present xxxxxxxxxxxxxxx [id number] 1974 Unknown [id number] .[id number] .356 1974 Unknown [id number] 2.16.840.1.187113.3.579.2 .356 1974 Unknown [id number] 2.16.840.1.171789.3.579.2 .1974 Unknown [id number] 2.16.840.1.146673.3.579.2 .1974 Unknown [id number] 2.16.840.1.805049.3.579.2 .1974 Unknown [id number] 2.16.840.1.901361.3.579.2 .1974 Unknown [id number] 2.16.840.1.009958.3.579.2 .1068 1974 Unknown [id number] 2.16.840.1.475666.3.579.2 .1068 1974 Unknown [id number] 2.16.840.1.977679.3.579.2 .1068 1974 Unknown [id number] 2.16.840.1.877467.3.579.2 .1068 1974 Unknown [id number] 2.16.840.1.760486.3.579.2 .1068 1974 Unknown [id number] 2.16.840.1.865507.3.579.2 .1068 1974 Unknown [id number] 2.16.840.1.160775.3.579.2 .1244 1974 Unknown [id number] 2.16.840.1.827160.3.579.2 .1244 1974 Unknown [id number] 2.16.840.1.389651.3.579.2 .1243 1974 Unknown [id number] 2.16.840.1.155432.3.579.2 .1242 1974 Unknown [id number] 2.16.840.1.434246.3.579.2 .1243 1974 Unknown [id number] 2.16.840.1.681648.3.579.2 .1243 Unknown [id number] Unknown [id number] 2.16.840.1.614071.3.579.2 .462 Social History Date Type Detail Facility Start: 09-14-2015 End: 05-09-2017 Tobacco smoking status TNIS Current every day smoker [facility] Work Phone: History of tobacco use Cigarette Smoker [facility] Work Phone: Start: 1974 Sex Assigned At Not on file O [facility] Work Phone: Start: 05-09-2017 End: 12-11-2022 Cigarettes smoked current (pack per day) - Reported [facility] Work Phone: Comment on above: Quit 2 yrs ago; Start: 09-14-2015 Tobacco Comment smokes 5 cigar ettes a day - 32 yrs [facility] Start: 03-05-2021 Sex [facility] Start: 1974 Sex Assigned At Female [facility] Start: 12-11-2022 Tobacco smoking status TNIS Ex-smoker [facility] Work Phone: History of tobacco use Current smoker [facility] Work Phone: Start: 12-11-2022 Tobacco use and exposure Smokeless tobacco non-user [facility] Work Phone: Start: 12-11-2022 End: 07-25-[address] [facility] Work Phone: Start: 07-22-2023 End: 12-23-2024 Exposure to SARS-CoV-2 (event) Not sure [facility] NEGATED: Highlighted row - - LU-PSJLE-Abmfbuywo Work Phone: Medical Equipment Procedure Code Equipment Code Equipment Origin al Text Equipment Identifier Dates Miles Millard Blue Case [id number] Start: 09-29-2019 Comment on above: Description: Convert ed from [facility]. Please see archived information for full log information. Dressing, Wound, [place] Ultra, Tri-Layer Matrix, 3 X 3.5 Case [id number] Start: 03-15-2022 Comment on above: Description: Convert ed from [facility]. Please see archived information for full log information. Bulking System, Bulkamid Urethral, Hosp Outpatient Only Case [id number] Start: 03-15-2022 Comment on above: Description: Convert ed from [facility]. Please see archived information for full log information. 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 Work Phone: NEGATED: Highlighted row Functional performance Functional status health issues are not documented Disease SV-KLBTE-Xdoxkbmxo Work Phone: Mental Status Date Assessment Result Facility NEGATED: Highlighted row Cognitive function [Interpretation] Cognitive status health issues are not documented Disease BB-KOXWJ-Ossjdoxrt Work Phone: Clinical Notes 10-13-2019 to 12-14-2024 Yoni Paige, DO - 12/14/2024 8:34 AM EDTammie Paige, DO - 12/14/2024 8:34 AM Yahir Knutson MD - 07/27/2024 4:00 PM Dajuan Garcia PA-C - 04/01/2024 1:40 PM EDT Note Date & Type Note Facility 12-14-2024 Physician Emergency department Note HPI Chief Complaint Patient presents with Knee Injury Pt was at work this morning and injured left knee while pushing a cart. Patient presents secondary to left knee pain. She states that she stepped awkwardly while pushing a cart at work. No trauma. Did not fall. Presents now to be further evaluated. Injury occurred this morning. 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 Constitutional: General: She is not in acute distress. Appearance: Normal appearance. She is normal weight. She is not ill-appearing, toxic-appearing or diaphoretic. Comments: Sitting up in bed filling out paperwork. Not in any acute distress HENT: Head: Normocephalic and atraumatic. Nose: Nose normal. No rhinorrhea. Neck: Comments: Trachea is midline Cardiovascular: Pulses: Normal pulses. Musculoskeletal: General: Tenderness present. No swelling, deformity or signs of injury. Normal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 Status:Active Family history of malignant neoplasm of prostate: Uncle(V16.42, Z80.42) Status:Active Family history of throat can cer: Uncle(V16.0, Z80.0) Status:Active Family history of cerebrovas cular accident (CVA): Grandmother, Grandparent(V17.1, Z82.3) Status:Active Family history of hypertensi on: Grandparent(V17.49, Z82.49) Status:Active Family history of migraine h eadaches: Grandparent(V17.2, Z82.0) Status:Active Family history of malignant neoplasm: Uncle(V16.9, Z80.9) Status:Active : Mother Comments:Cause of : Blo od Clot to leg at the age 53; Status:Active Primary malignant neoplasm o f female breast: Mother Status:Active Unknown family medical histo ry: Father Status:Active No pertinent family history: Brother(V49.89, Z78.9) Status:Active Family history of cardiac di sorder: Grandparent(V17.49, Z82.49) Status:Active Family history of hyperlipid emia: Grandparent(V18.19, Z83.438) Status:Active Unknown Family Member Name Dates Details Family history of seizures: Mother(V19.8, Z84.89) Status:Active Family history of malignant neoplasm of prostate: Uncle(V16.42, Z80.42) Status:Active Family history of throat can cer: Uncle(V16.0, Z80.0) Status:Active Family history of cerebrovas cular accident (CVA): Grandmother, Grandparent(V17.1, Z82.3) Status:Active Family history of hypertensi on: Grandparent(V17.49, Z82.49) Status:Active Family history of migraine h eadaches: Grandparent(V17.2, Z82.0) Status:Active Family history of malignant neoplasm: Uncle(V16.9, Z80.9) Status:Active : Mother Comments:Cause of : Blo od Clot to leg at the age 53; Status:Active Primary malignant neoplasm o f female breast: Mother Status:Active Unknown family medical histo ry: Father Status:Active No pertinent family history: Brother(V49.89, Z78.9) Status:Active Family history of cardiac di sorder: Grandparent(V17.49, Z82.49) Status:Active Family history of hyperlipid emia: Grandparent(V18.19, Z83.438) Status:Active Unknown Family Member Name Dates Details Family history of seizures: Mother(V19.8, Z84.89) Status:Active Family history of malignant neoplasm of prostate: Uncle(V16.42, Z80.42) Status:Active Family history of throat can cer: Uncle(V16.0, Z80.0) Status:Active Family history of cerebrovas cular accident (CVA): Grandmother, Grandparent(V17.1, Z82.3) Status:Active Family history of hypertensi on: Grandparent(V17.49, Z82.49) Status:Active Family history of migraine h eadaches: Grandparent(V17.2, Z82.0) Status:Active Family history of malignant neoplasm: Uncle(V16.9, Z80.9) Status:Active : Mother Comments:Cause of : Blo od Clot to leg at the age 53; Status:Active Primary malignant neoplasm o f female breast: Mother Status:Active Unknown family medical histo ry: Father Status:Active No pertinent family history: Brother(V49.89, Z78.9) Status:Active Family history of cardiac di sorder: Grandparent(V17.49, Z82.49) Status:Active Family history of hyperlipid emia: Grandparent(V18.19, Z83.438) Status:Active Unknown Family Member Name Dates Details Family history of seizures: Mother(V19.8, Z84.89) Status:Active Family history of malignant neoplasm of prostate: Uncle(V16.42, Z80.42) Status:Active Family history of throat can cer: Uncle(V16.0, Z80.0) Status:Active Family history of cerebrovas cular accident (CVA): Grandmother, Grandparent(V17.1, Z82.3) Status:Active Family history of hypertensi on: Grandparent(V17.49, Z82.49) Status:Active Family history of migraine h eadaches: Grandparent(V17.2, Z82.0) Status:Active Family history of malignant neoplasm: Uncle(V16.9, Z80.9) Status:Active : Mother Comments:Cause of : Blo od Clot to leg at the age 53; Status:Active Primary malignant neoplasm o f female breast: Mother Status:Active Unknown family medical histo ry: Father Status:Active No pertinent family history: Brother(V49.89, Z78.9) Status:Active Family history of cardiac di sorder: Grandparent(V17.49, Z82.49) Status:Active Family history of hyperlipid emia: Grandparent(V18.19, Z83.438) Status:Active Unknown Family Member Name Dates Details : Mother Comments:Cause of : Blo od Clot to leg at the age 53; Status:Active No pertinent family history: Brother(V49.89, Z78.9) Status:Active Family history of cardiac di sorder: Grandparent(V17.49, Z82.49) Status:Active Family history of hyperlipid emia: Grandparent(V18.19, Z83.438) Status:Active Unknown family medical histo ry: Father Status:Active Primary malignant neoplasm o f female breast: Mother Status:Active Family history of malignant neoplasm: Uncle(V16.9, Z80.9) Status:Active Family history of migraine h eadaches: Grandparent(V17.2, Z82.0) Status:Active Family history of hypertensi on: Grandparent(V17.49, Z82.49) Status:Active Family history of cerebrovas cular accident (CVA): Grandmother, Grandparent(V17.1, Z82.3) Status:Active Family history of throat can cer: Uncle(V16.0, Z80.0) Status:Active Family history of malignant neoplasm of prostate: Uncle(V16.42, Z80.42) Status:Active Family history of seizures: Mother(V19.8, Z84.89) Status:Active Unknown Family Member Name Dates Details Family history of seizures: Mother(V19.8, Z84.89) Status:Active Family history of malignant neoplasm of prostate: Uncle(V16.42, Z80.42) Status:Active Family history of throat can cer: Uncle(V16.0, Z80.0) Status:Active Family history of cerebrovas cular accident (CVA): Grandmother, Grandparent(V17.1, Z82.3) Status:Active Family history of hypertensi on: Grandparent(V17.49, Z82.49) Status:Active Family history of migraine h eadaches: Grandparent(V17.2, Z82.0) Status:Active Family history of malignant neoplasm: Uncle(V16.9, Z80.9) Status:Active : Mother Comments:Cause of : Blo od Clot to leg at the age 53; Status:Active Primary malignant neoplasm o f female breast: Mother Status:Active Unknown family medical histo ry: Father Status:Active No pertinent family history: Brother(V49.89, Z78.9) Status:Active Family history of cardiac di sorder: Grandparent(V17.49, Z82.49) Status:Active Family history of hyperlipid emia: Grandparent(V18.19, Z83.438) Status:Active Unknown Family Member Name Dates Details Family history of seizures: Mother(V19.8, Z84.89) Status:Active Family history of malignant neoplasm of prostate: Uncle(V16.42, Z80.42) Status:Active Family history of throat can cer: Uncle(V16.0, Z80.0) Status:Active Family history of cerebrovas cular accident (CVA): Grandmother, Grandparent(V17.1, Z82.3) Status:Active Family history of hypertensi on: Grandparent(V17.49, Z82.49) Status:Active Family history of migraine h eadaches: Grandparent(V17.2, Z82.0) Status:Active Family history of malignant neoplasm: Uncle(V16.9, Z80.9) Status:Active : Mother Comments:Cause of : Blo od Clot to leg at the age 53; Status:Active Primary malignant neoplasm o f female breast: Mother Status:Active Unknown family medical histo ry: Father Status:Active No pertinent family history: Brother(V49.89, Z78.9) Status:Active Family history of cardiac di sorder: Grandparent(V17.49, Z82.49) Status:Active Family history of hyperlipid emia: Grandparent(V18.19, Z83.438) Status:Active Unknown Family Member Name Dates Details Family history of seizures: Mother(V19.8, Z84.89) Status:Active Family history of malignant neoplasm of prostate: Uncle(V16.42, Z80.42) Status:Active Family history of throat can cer: Uncle(V16.0, Z80.0) Status:Active Family history of cerebrovas cular accident (CVA): Grandmother, Grandparent(V17.1, Z82.3) Status:Active Family history of hypertensi on: Grandparent(V17.49, Z82.49) Status:Active Family history of migraine h eadaches: Grandparent(V17.2, Z82.0) Status:Active Family history of malignant neoplasm: Uncle(V16.9, Z80.9) Status:Active : Mother Comments:Cause of : Blo od Clot to leg at the age 53; Status:Active Primary malignant neoplasm o f female breast: Mother Status:Active Unknown family medical histo ry: Father Status:Active No pertinent family history: Brother(V49.89, Z78.9) Status:Active Family history of cardiac di sorder: Grandparent(V17.49, Z82.49) Status:Active Family history of hyperlipid emia: Grandparent(V18.19, Z83.438) Status:Active Unknown Family Member Name Dates Details Family history of seizures: Mother(V19.8, Z84.89) Status:Active Family history of malignant neoplasm of prostate: Uncle(V16.42, Z80.42) Status:Active Family history of throat can cer: Uncle(V16.0, Z80.0) Status:Active Family history of cerebrovas cular accident (CVA): Grandmother, Grandparent(V17.1, Z82.3) Status:Active Family history of hypertensi on: Grandparent(V17.49, Z82.49) Status:Active Family history of migraine h eadaches: Grandparent(V17.2, Z82.0) Status:Active Family history of malignant neoplasm: Uncle(V16.9, Z80.9) Status:Active : Mother Comments:Cause of : Blo od Clot to leg at the age 53; Status:Active Primary malignant neoplasm o f female breast: Mother Status:Active Unknown family medical histo ry: Father Status:Active No pertinent family history: Brother(V49.89, Z78.9) Status:Active Family history of cardiac di sorder: Grandparent(V17.49, Z82.49) Status:Active Family history of hyperlipid emia: Grandparent(V18.19, Z83.438) Status:Active Unknown Family Member Name Dates Details Family history of seizures: Mother(V19.8, Z84.89) Status:Active Family history of malignant neoplasm of prostate: Uncle(V16.42, Z80.42) Status:Active Family history of throat can cer: Uncle(V16.0, Z80.0) Status:Active Family history of cerebrovas cular accident (CVA): Grandmother, Grandparent(V17.1, Z82.3) Status:Active Family history of hypertensi on: Grandparent(V17.49, Z82.49) Status:Active Family history of migraine h eadaches: Grandparent(V17.2, Z82.0) Status:Active Family history of malignant neoplasm: Uncle(V16.9, Z80.9) Status:Active : Mother Comments:Cause of : Blo od Clot to leg at the age 53; Status:Active Primary malignant neoplasm o f female breast: Mother Status:Active Unknown family medical histo ry: Father Status:Active No pertinent family history: Brother(V49.89, Z78.9) Status:Active Family history of cardiac di sorder: Grandparent(V17.49, Z82.49) Status:Active Family history of hyperlipid emia: Grandparent(V18.19, Z83.438) Status:Active Unknown Family Member Name Dates Details Family history of seizures: Mother(V19.8, Z84.89) Status:Active Family history of malignant neoplasm of prostate: Uncle(V16.42, Z80.42) Status:Active Family history of throat can cer: Uncle(V16.0, Z80.0) Status:Active Family history of cerebrovas cular accident (CVA): Grandmother, Grandparent(V17.1, Z82.3) Status:Active Family history of hypertensi on: Grandparent(V17.49, Z82.49) Status:Active Family history of migraine h eadaches: Grandparent(V17.2, Z82.0) Status:Active Family history of malignant neoplasm: Uncle(V16.9, Z80.9) Status:Active : Mother Comments:Cause of : Blo od Clot to leg at the age 53; Status:Active Primary malignant neoplasm o f female breast: Mother Status:Active Unknown family medical histo ry: Father Status:Active No pertinent family history: Brother(V49.89, Z78.9) Status:Active Family history of cardiac di sorder: Grandparent(V17.49, Z82.49) Status:Active Family history of hyperlipid emia: Grandparent(V18.19, Z83.438) Status:Active Unknown Family Member Name Dates Details Family history of seizures: Mother(V19.8, Z84.89) Status:Active Family history of malignant neoplasm of prostate: Uncle(V16.42, Z80.42) Status:Active Family history of throat can cer: Uncle(V16.0, Z80.0) Status:Active Family history of cerebrovas cular accident (CVA): Grandmother, Grandparent(V17.1, Z82.3) Status:Active Family history of hypertensi on: Grandparent(V17.49, Z82.49) Status:Active Family history of migraine h eadaches: Grandparent(V17.2, Z82.0) Status:Active Family history of malignant neoplasm: Uncle(V16.9, Z80.9) Status:Active : Mother Comments:Cause of : Blo od Clot to leg at the age 53; Status:Active Primary malignant neoplasm o f female breast: Mother Status:Active Unknown family medical histo ry: Father Status:Active No pertinent family history: Brother(V49.89, Z78.9) Status:Active Family history of cardiac di sorder: Grandparent(V17.49, Z82.49) Status:Active Family history of hyperlipid emia: Grandparent(V18.19, Z83.438) Status:Active Unknown Family Member Name Dates Details Family history of seizures: Mother(V19.8, Z84.89) Status:Active Family history of malignant neoplasm of prostate: Uncle(V16.42, Z80.42) Status:Active Family history of throat can cer: Uncle(V16.0, Z80.0) Status:Active Family history of cerebrovas cular accident (CVA): Grandmother, Grandparent(V17.1, Z82.3) Status:Active Family history of hypertensi on: Grandparent(V17.49, Z82.49) Status:Active Family history of migraine h eadaches: Grandparent(V17.2, Z82.0) Status:Active Family history of malignant neoplasm: Uncle(V16.9, Z80.9) Status:Active : Mother Comments:Cause of : Blo od Clot to leg at the age 53; Status:Active Primary malignant neoplasm o f female breast: Mother Status:Active Unknown family medical histo ry: Father Status:Active No pertinent family history: Brother(V49.89, Z78.9) Status:Active Family history of cardiac di sorder: Grandparent(V17.49, Z82.49) Status:Active Family history of hyperlipid emia: Grandparent(V18.19, Z83.438) Status:Active Unknown Family Member Name Dates Details Family history of seizures: Mother(V19.8, Z84.89) Status:Active Family history of malignant neoplasm of prostate: Uncle(V16.42, Z80.42) Status:Active Family history of throat can cer: Uncle(V16.0, Z80.0) Status:Active Family history of cerebrovas cular accident (CVA): Grandmother, Grandparent(V17.1, Z82.3) Status:Active Family history of hypertensi on: Grandparent(V17.49, Z82.49) Status:Active Family history of migraine h eadaches: Grandparent(V17.2, Z82.0) Status:Active Family history of malignant neoplasm: Uncle(V16.9, Z80.9) Status:Active : Mother Comments:Cause of : Blo od Clot to leg at the age 53; Status:Active Primary malignant neoplasm o f female breast: Mother Status:Active Unknown family medical histo ry: Father Status:Active No pertinent family history: Brother(V49.89, Z78.9) Status:Active Family history of cardiac di sorder: Grandparent(V17.49, Z82.49) Status:Active Family history of hyperlipid emia: Grandparent(V18.19, Z83.438) Status:Active Unknown Family Member Name Dates Details Family history of seizures: Mother(V19.8, Z84.89) Status:Active Family history of malignant neoplasm of prostate: Uncle(V16.42, Z80.42) Status:Active Family history of throat can cer: Uncle(V16.0, Z80.0) Status:Active Family history of cerebrovas cular accident (CVA): Grandmother, Grandparent(V17.1, Z82.3) Status:Active Family history of hypertensi on: Grandparent(V17.49, Z82.49) Status:Active Family history of migraine h eadaches: Grandparent(V17.2, Z82.0) Status:Active Family history of malignant neoplasm: Uncle(V16.9, Z80.9) Status:Active : Mother Comments:Cause of : Blo od Clot to leg at the age 53; Status:Active Primary malignant neoplasm o f female breast: Mother Status:Active Unknown family medical histo ry: Father Status:Active No pertinent family history: Brother(V49.89, Z78.9) Status:Active Family history of cardiac di sorder: Grandparent(V17.49, Z82.49) Status:Active Family history of hyperlipid emia: Grandparent(V18.19, Z83.438) Status:Active Unknown Family Member Name Dates Details Family history of seizures: Mother(V19.8, Z84.89) Status:Active Family history of malignant neoplasm of prostate: Uncle(V16.42, Z80.42) Status:Active Family history of throat can cer: Uncle(V16.0, Z80.0) Status:Active Family history of cerebrovas cular accident (CVA): Grandmother, Grandparent(V17.1, Z82.3) Status:Active Family history of hypertensi on: Grandparent(V17.49, Z82.49) Status:Active Family history of migraine h eadaches: Grandparent(V17.2, Z82.0) Status:Active Family history of malignant neoplasm: Uncle(V16.9, Z80.9) Status:Active : Mother Comments:Cause of : Blo od Clot to leg at the age 53; Status:Active Primary malignant neoplasm o f female breast: Mother Status:Active Unknown family medical histo ry: Father Status:Active No pertinent family history: Brother(V49.89, Z78.9) Status:Active Family history of cardiac di sorder: Grandparent(V17.49, Z82.49) Status:Active Family history of hyperlipid emia: Grandparent(V18.19, Z83.438) Status:Active Unknown Family Member Name Dates Details Family history of seizures: Mother(V19.8, Z84.89) Status:Active Family history of malignant neoplasm of prostate: Uncle(V16.42, Z80.42) Status:Active Family history of throat can cer: Uncle(V16.0, Z80.0) Status:Active Family history of cerebrovas cular accident (CVA): Grandmother, Grandparent(V17.1, Z82.3) Status:Active Family history of hypertensi on: Grandparent(V17.49, Z82.49) Status:Active Family history of migraine h eadaches: Grandparent(V17.2, Z82.0) Status:Active Family history of malignant neoplasm: Uncle(V16.9, Z80.9) Status:Active : Mother Comments:Cause of : Blo od Clot to leg at the age 53; Status:Active Primary malignant neoplasm o f female breast: Mother Status:Active Unknown family medical histo ry: Father Status:Active No pertinent family history: Brother(V49.89, Z78.9) Status:Active Family history of cardiac di sorder: Grandparent(V17.49, Z82.49) Status:Active Family history of hyperlipid emia: Grandparent(V18.19, Z83.438) Status:Active Unknown Family Member Name Dates Details Family history of seizures: Mother(V19.8, Z84.89) Status:Active Family history of malignant neoplasm of prostate: Uncle(V16.42, Z80.42) Status:Active Family history of throat can cer: Uncle(V16.0, Z80.0) Status:Active Family history of cerebrovas cular accident (CVA): Grandmother, Grandparent(V17.1, Z82.3) Status:Active Family history of hypertensi on: Grandparent(V17.49, Z82.49) Status:Active Family history of migraine h eadaches: Grandparent(V17.2, Z82.0) Status:Active Family history of malignant neoplasm: Uncle(V16.9, Z80.9) Status:Active : Mother Comments:Cause of : Blo od Clot to leg at the age 53; Status:Active Primary malignant neoplasm o f female breast: Mother Status:Active Unknown family medical histo ry: Father Status:Active No pertinent family history: Brother(V49.89, Z78.9) Status:Active Family history of cardiac di sorder: Grandparent(V17.49, Z82.49) Status:Active Family history of hyperlipid emia: Grandparent(V18.19, Z83.438) Status:Active Unknown Family Member Name Dates Details Family history of seizures: Mother(V19.8, Z84.89) Status:Active Family history of malignant neoplasm of prostate: Uncle(V16.42, Z80.42) Status:Active Family history of throat can cer: Uncle(V16.0, Z80.0) Status:Active Family history of cerebrovas cular accident (CVA): Grandmother, Grandparent(V17.1, Z82.3) Status:Active Family history of hypertensi on: Grandparent(V17.49, Z82.49) Status:Active Family history of migraine h eadaches: Grandparent(V17.2, Z82.0) Status:Active Family history of malignant neoplasm: Uncle(V16.9, Z80.9) Status:Active : Mother Comments:Cause of : Blo od Clot to leg at the age 53; Status:Active Primary malignant neoplasm o f female breast: Mother Status:Active Unknown family medical histo ry: Father Status:Active No pertinent family history: Brother(V49.89, Z78.9) Status:Active Family history of cardiac di sorder: Grandparent(V17.49, Z82.49) Status:Active Family history of hyperlipid emia: Grandparent(V18.19, Z83.438) Status:Active Unknown Family Member Name Dates Details Family history of seizures: Mother(V19.8, Z84.89) Status:Active Family history of malignant neoplasm of prostate: Uncle(V16.42, Z80.42) Status:Active Family history of throat can cer: Uncle(V16.0, Z80.0) Status:Active Family history of cerebrovas cular accident (CVA): Grandmother, Grandparent(V17.1, Z82.3) Status:Active Family history of hypertensi on: Grandparent(V17.49, Z82.49) Status:Active Family history of migraine h eadaches: Grandparent(V17.2, Z82.0) Status:Active Family history of malignant neoplasm: Uncle(V16.9, Z80.9) Status:Active : Mother Comments:Cause of : Blo od Clot to leg at the age 53; Status:Active Primary malignant neoplasm o f female breast: Mother Status:Active Unknown family medical histo ry: Father Status:Active No pertinent family history: Brother(V49.89, Z78.9) Status:Active Family history of cardiac di sorder: Grandparent(V17.49, Z82.49) Status:Active Family history of hyperlipid emia: Grandparent(V18.19, Z83.438) Status:Active Unknown Family Member Name Dates Details Family history of seizures: Mother(V19.8, Z84.89) Status:Active Family history of malignant neoplasm of prostate: Uncle(V16.42, Z80.42) Status:Active Family history of throat can cer: Uncle(V16.0, Z80.0) Status:Active Family history of cerebrovas cular accident (CVA): Grandmother, Grandparent(V17.1, Z82.3) Status:Active Family history of hypertensi on: Grandparent(V17.49, Z82.49) Status:Active Family history of migraine h eadaches: Grandparent(V17.2, Z82.0) Status:Active Family history of malignant neoplasm: Uncle(V16.9, Z80.9) Status:Active : Mother Comments:Cause of : Blo od Clot to leg at the age 53; Status:Active Primary malignant neoplasm o f female breast: Mother Status:Active Unknown family medical histo ry: Father Status:Active No pertinent family history: Brother(V49.89, Z78.9) Status:Active Family history of cardiac di sorder: Grandparent(V17.49, Z82.49) Status:Active Family history of hyperlipid emia: Grandparent(V18.19, Z83.438) Status:Active Unknown Family Member Name Dates Details Family history of seizures: Mother(V19.8, Z84.89) Status:Active Family history of malignant neoplasm of prostate: Uncle(V16.42, Z80.42) Status:Active Family history of throat can cer: Uncle(V16.0, Z80.0) Status:Active Family history of cerebrovas cular accident (CVA): Grandmother, Grandparent(V17.1, Z82.3) Status:Active Family history of hypertensi on: Grandparent(V17.49, Z82.49) Status:Active Family history of migraine h eadaches: Grandparent(V17.2, Z82.0) Status:Active Family history of malignant neoplasm: Uncle(V16.9, Z80.9) Status:Active : Mother Comments:Cause of : Blo od Clot to leg at the age 53; Status:Active Primary malignant neoplasm o f female breast: Mother Status:Active Unknown family medical histo ry: Father Status:Active No pertinent family history: Brother(V49.89, Z78.9) Status:Active Family history of cardiac di sorder: Grandparent(V17.49, Z82.49) Status:Active Family history of hyperlipid emia: Grandparent(V18.19, Z83.438) Status:Active Unknown Family Member Name Dates Details Family history of seizures: Mother(V19.8, Z84.89) Status:Active Family history of malignant neoplasm of prostate: Uncle(V16.42, Z80.42) Status:Active Family history of throat can cer: Uncle(V16.0, Z80.0) Status:Active Family history of cerebrovas cular accident (CVA): Grandmother, Grandparent(V17.1, Z82.3) Status:Active Family history of hypertensi on: Grandparent(V17.49, Z82.49) Status:Active Family history of migraine h eadaches: Grandparent(V17.2, Z82.0) Status:Active Family history of malignant neoplasm: Uncle(V16.9, Z80.9) Status:Active : Mother Comments:Cause of : Blo od Clot to leg at the age 53; Status:Active Primary malignant neoplasm o f female breast: Mother Status:Active Unknown family medical histo ry: Father Status:Active No pertinent family history: Brother(V49.89, Z78.9) Status:Active Family history of cardiac di sorder: Grandparent(V17.49, Z82.49) Status:Active Family history of hyperlipid emia: Grandparent(V18.19, Z83.438) Status:Active Advance Directives No Advanced Directives Records FoundNo Advanced Directives Records FoundNo Advanced Directives Records FoundNo Advanced Directives Records FoundNo Advanced Directives Records FoundNo Advanced Directives Records FoundNo Advanced Directives Records FoundNo Advanced Directives Records FoundNo Advanced Directives Records FoundNo Advanced Directives Records FoundNo Advanced Directives Records FoundNo Advanced Directives Records Found Reason for Referral Status Reason Specialty Diagnoses / Procedures Referred By Contact Referred To Contact Pending Review Specialty Services Required/Patien t's Best Interest Cardiology Diagnoses Preoperative clearance Jazmine Shirley MD [address] [place] [address] Specialty Diagnoses / Procedures Referred By Wilda t Referred To Contact Radiology Diagnoses Abnormal mammogram Procedures BI US breast limited left Lj August, [employer]OR[employer] FINAL INSPECTOR-VERIFICATION LEAD [address] [facility] [address] [place] [address] Referral ID Status Reason Start Date Expiration Date Visits Requested Visits Authorized [id number] Authorized Perform Procedure 07/29/2023 07/28/2024 1 1 Specialty Diagnoses / Procedures Referred By Wilda hong Referred To Contact Radiology Diagnoses Right elbow pain Procedures XR elbow left 1-2 views Rajani Knutson MD [address] [facility], [address] [place] [address] Referral ID Status Reason Start Date Expiration Date Visits Requested Visits Authorized [id number] Authorized Perform Procedure 09/05/2023 09/04/2024 1 1 Specialty Diagnoses / Procedures Referred By Contac t Referred To Contact Radiology Diagnoses Right elbow pain Procedures XR elbow right 3+ views Rajani Knutson MD [address] [facility], [address] [place] [id number] Referral ID Status Reason Start Date Expiration Date Visits Requested Visits Authorized [id number] Authorized Perform Procedure 09/05/2023 09/04/2024 1 1 History of Present Illness * Osmar Purvis, DO - 05/09/2017 12:02 PM EDT Formatting of this note may be different from the original. OFFICE CONSULTATION NOTE [facility] [address] [facility] [address] [facility] [id number] Subjective: Claude Goodman is a 41 y.o. female seen in the office today for Pre-op Exam (Pt is here for a pre-op exam for Partial Hysterectomy sx date is 05/13/2017/Марина. She denies any cardiac concerns for today's OV.) HPI: Very pleasant 41-year-old female in need of hysterectomy secondary to uterine prolapse. EKG is normal sinus other than mild bradycardia. Heart rates 58 bpm. 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 She denies lightheadedness, dizziness, chest pain, chest pressure,palpitations, syncope, nursing, diaphoresis, ankle edema. She has no orthopnea proximal for dyspnea. Assessment & Plan: Low risk for proposed surgery. She is able to exert herself to greater than 7 metastases without symptoms. EKG is essentially normal other than mild sinus bradycardia. There is no indication for further cardiac testing at this time. Histories: Past Medical History: Diagnosis Date Peptic ulcer disease Varicose vein of leg left Varicose veins Past Surgical History: Procedure Laterality Date KNEE SURGERY Right 1997 ORTHROSCOPIC RADIOFREQENCY ABLATION Left 08/23/2015 TONSILLECTOMY 1997 TUBAL LIGATION 1996 Family History Problem Relation Age of Onset Varicose veins Mother Deep vein thrombosis Mother Kidney disease Maternal Grandmother renal failure Social History Substance Use Topics Smoking status: Current Every Day Smoker Packs/day: 0.25 Types: Cigarettes Smokeless tobacco: Never Used Comment: smokes 5 cigarettes a day - 32 yrs Alcohol use No Current Outpatient Prescriptions on File Prior to Visit Medication Sig FERROUS FUMARATE (IRON ORAL) Take by mouth daily. FIBER, HERBAL, ORAL Take by mouth daily. ibuprofen (ADVIL,MOTRIN) 600 MG tablet Take 600 mg by mouth every 6 (six) hours as needed for pain. multivitamin (THERAGRAN) per tablet Take 1 tablet by mouth daily. No current facility-administered medications on file prior to visit. No Known Allergies Review of Systems Constitution: Negative for diaphoresis, malaise/fatigue, weight gain and weight loss. HENT: Negative for hearing loss, nosebleeds and tinnitus. Eyes: Negative for blurred vision and visual disturbance. Cardiovascular: Negative for chest pain, claudication, cyanosis, dyspnea on exertion, irregular heartbeat, leg swelling, near-syncope, orthopnea, palpitations, paroxysmal nocturnal dyspnea and syncope. Respiratory: Negative for hemoptysis, shortness of breath and snoring. Endocrine: Negative for cold intolerance and heat intolerance. Hematologic/Lymphatic: Does not bruise/bleed easily. Skin: Negative for flushing, poor wound healing and rash. Musculoskeletal: Negative for back pain, muscle weakness and myalgias. Gastrointestinal: Negative for abdominal pain, change in bowel habit, melena, nausea and vomiting. Genitourinary: Negative for hematuria. Neurological: Negative for loss of balance and numbness. Psychiatric/Behavioral: Negative for memory loss. The patient is not nervous/anxious. Objective: Vitals: BP 111/75 Pulse (!) 58 Ht 5' 8 Wt 74.5 kg (164 lb 4.8 oz) SpO2 99% BMI 24.98 kg/m2 Physical Exam Constitutional: She is oriented to person, place, and time. She appears well- developed and well-nourished. No distress. HENT: Head: Normocephalic. Mouth/Throat: Oropharynx is clear and moist. Eyes: Conjunctivae and lids are normal. Neck: No JVD present. Carotid bruit is not present. Cardiovascular: Normal rate, regular rhythm, normal heart sounds, intact distal pulses and normal pulses. Exam reveals no gallop. No murmur heard. Pulmonary/Chest: Effort normal and breath sounds normal. Abdominal: Soft. Bowel sounds are normal. She exhibits no mass. There is no hepatosplenomegaly. There is no tenderness. Musculoskeletal: She exhibits no edema. Neurological: She is alert and oriented to person, place, and time. Gait normal. Skin: Skin is warm and intact. No rash noted. Psychiatric: She has a normal mood and affect. Her behavior is normal. Vitals reviewed. EKG Interpretation: sinus bradycardia. SNOMED CT(R) 1. Preoperative clearance PREOPERATIVE STATE Ambulatory referral to Cardiology in this encounter Assessments Diagnosis Preoperative clearance Unspecified pre-operative examination Chief Complaint * NEW PATIENT, ONGOING RIGHT SIDE AND LOWER BACK PAIN, SHE HAS CONSTANT PINS AND NEEDLES, SHARP PAINS, ON THE RIGHT SIDE OF HER BODY, PAIN INCREASES WITH MOST ACTIVITY AND COLD ,WEAKNESS TO THE RIGHT SIDE THE DAY PROGRESSES, CHIROPRACTIC ADJUSTMENTS AND HOME EXERCISES HAVE NOT GIVEN HER ANY RELIEF, CHIROPRACTOR TOLD HER THE SYMPTOMS ARE FROM HER NECK,SHE TAKES ALEVE PRN,HEATING PAD PRN, X-RAYS THORACIC AND CERVICAL, SCORE 7/10 * This is a 45-year-old female here for a new patient appointment for chief complaint of right-sided neck and arm and right-sided low back and leg pain. She reports that she has had back pain for at least 5 years. She denies any causative injury and states that it was from wear and tear over the years. She states she has pain that will start in the lower back radiate down the right leg into the foot. She will get heaviness and weakness in the leg. She denies any left leg symptoms. She has been using naproxen 3 tabs twice a day since September. She states it was helpful to a mild extent but was toldthat she was taking too much. She reports that at the beginning of this year she started having similar symptoms in the right side of her neck that will radiate down the right arm into the hand. She has had weakness in the hand and issues with dropping things. She denies any left arm symptoms as well. She states the naproxen does not seem to help the arm symptoms at all. [facility] which have helped with the lumbar pain somewhat but not with the cervical pain. She had an x-ray of her neck and mid back which showed significant degenerativedisc disease. She denies loss of bladder or bowel control. * The patient's past medical, social, and family history along with medications and allergies are available and were reviewed. * FUV C7-T1 ARNEL on 08/06/21 reports 90% relief with her injection she saw the surgeon and since she had relief in pain she does not want to do anything right now she is to call him if the injections stop working. Today she is reports no pain, but she is painful after working rates 10/10 and her entirert arm and rt leg hurt and go numb, she has trouble lifting with the pain, describes as pins and needles. * Screenings BMI 31.9 declines education trying to lose weight. Depression, Smoking negative mdck.1 month f/u.1 month f/u.Follow up. Former pt Dr. Ivy, bladder prolapse1 month f/u.Here for Urodynamics Testf/u after UDS* A telephone visit (audio only) between the patient (at the originating site) and the provider (at the distant site) was utilized to provide this telehealth service. * Verbal consent was requested and obtained from CLAUDE GOODMAN on this date, 02/04/2022 05:00 PM , for [facility]. * Telephone only 1 month f/u.* Patient states she recently started working out because she is getting ready to go on a cruise. Patient states she started noticing severe pain in her lower back. She states she has intermittent pain, cramping in her leg and toes, and heydi horses in her right leg. Patient states when she has them they are severe. Patient rates her pain a 8/10 today. * Patient denied smoking. Depression screen completed, negative. BMI 31.02, education handout provided to patient. LAUREN score 21. ORT score 0. * Patient is here for a follow up visit today. Patient complains of lower back pain and pain down herright leg to her foot. Patient also complains of neck pain that radiates into her right shoulder. Patient is here today for refills of medications. Patient discussed MRI and states she was unable to do it here at [facility] due to piercings. She states she is willing to get it possibly at a different facility. Patient states she needs a refill of Diclofenac. * Alcohol screen completed, negative. LAUREN score 36. Additional Source Comments INFORMATION SOURCE (unrecogn ized section and content) DATE CREATED AUTHOR 01/14/2018 [facility] DATE CREATED AUTHOR AUTHOR'S ORGANIZ ATION 10/18/2018 [facility] DATE CREATED AUTHOR AUTHOR'S ORGANIZ ATION 04/25/2019 [facility] DATE CREATED AUTHOR AUTHOR'S ORGANIZ ATION 06/23/2020 [facility] DATE CREATED AUTHOR AUTHOR'S ORGANIZ ATION 03/21/2022 [facility] DATE CREATED AUTHOR AUTHOR'S ORGANIZ ATION 07/17/2022 [facility] DATE CREATED AUTHOR AUTHOR'S ORGANIZ ATION 12/29/2022 [facility] DATE CREATED AUTHOR AUTHOR'S ORGANIZ ATION 12/29/2022 [facility] DATE CREATED AUTHOR AUTHOR'S ORGANIZ ATION 09/09/2023 [facility] DATE CREATED AUTHOR AUTHOR'S ORGANIZ ATION 09/19/2023 [facility] DATE CREATED AUTHOR AUTHOR'S ORGANIZ ATION 09/08/2024 [facility] DATE CREATED AUTHOR AUTHOR'S ORGANIZ ATION 12/24/2024 [facility] Reason for Visit (unrecogniz ed section and content) Reason Comments Pre-op Exam Pt is here for a pre -op exam for Partial Hysterectomy sx date is 05/13/2017/Марина. She denies any cardiac concerns for today's OV. Status Reason Specialty Diagnoses / Procedures Referred By Contact Referred To Contact Pending Review Specialty Services Required/Patien t's Best Interest Cardiology Diagnoses Preoperative clearance Jazmine Shirley MD [address] [place] [address] Specialty Diagnoses / Procedures Referred By Bonnieac t Referred To Contact Radiology Diagnoses Abnormal mammogram Procedures BI US breast limited left [place], Lj Bernard, MOTORCYLES FINAL INSPECTOR-VERIFICATION LEAD [address] [facility], [address] [place] [address] Referral ID Status Reason Start Date Expiration Date Visits Requested Visits Authorized [id number] Authorized Perform Procedure 07/29/2023 07/28/2024 1 1 Reason Comments Insomnia Shoulder Pain right Specialty Diagnoses / Procedures Referred By Contac t Referred To Contact Primary Care Procedures Follow Up In Primary Care - Health Maintenance Mike, Lj Marco Antonio, MOTORCY[employer] FINAL INSPECTOR-VERIFICATION LEAD [address] [facility], [address] [place] [address] Referral ID Status Reason Start Date Expiration Date V isits Requested Visits Authorized [id number] Authorized 07/25/2023 07/24/2024 1 1 Specialty Diagnoses / Procedures Referred By Contac t Referred To Contact Radiology Diagnoses Right elbow pain Procedures XR elbow right 3+ views Rajani Knutson MD [address] [facility] [place] [address] [place] [id number] Referral ID Status Reason Start Date Expiration Date Visits Requested Visits Authorized [id number] Authorized Perform Procedure 09/05/2023 09/04/2024 1 1 Reason Comments Sinusitis Sinus pressure/drain age, ear pressure x 5 days Reason Comments Constipation No BM for 3 days, [place] s had stomach cramps, took 2 enemas, drinking grape, apple juice and fiber gummies with no relief Rectal Pain With pressure, denie s any blood in stool Reason Comments Knee Injury Pt was at work this morning and injured left knee while pushing a cart. Care Teams (unrecognized sec tion and content) Dry Roaster Relationship Specialty Start Date End Date Rajani Knutson MD [address] [facility] [place], Kevin [address] [place] [id number] PCP - General 07/17/20 Rajani Knutson MD [address] [facility] [place], Kevin [address] [place] [address] PCP - Rick KERR PCP 01/18/23 Dry Roaster Relationship Specialty Start Date End Date Rajani Knutson MD [address] [facility], Kevin [address] [place] [address] PCP - General 07/17/20 Rajani Knutson MD [address] [facility], Kevin [address] [place] [address] PCP - [place] [facility] PCP 01/18/23 Dry Roaster Relationship Specialty Start Date End Date Rajani Knutson MD [address] [facility], Kevin [address] [place], [id number] PCP - General 07/17/20 Rajani Knutson MD [address] [facility], [address] [place], [id number] PCP - [place] [facility] PCP 01/18/23 Dry Roaster Relationship Specialty Start Date End Date Rajani Knutson MD [address] [facility], Kevin [address] [place] [address] PCP - General 07/17/20 Rajani Knutson MD [address] [facility], Kevin [address] [place] [address] PCP - [place] [facility] PCP 01/18/23 Dry Roaster Relationship Specialty Start Date End Date Rajani Knutson MD [address] [facility], Kevin [address] [place] [address] PCP - General 07/17/20 Rajani Knutson MD [address] [facility], Kevin [address] [place] [id number] PCP - [place] [facility] PCP 10/20/23 Dry Roaster Relationship Specialty Start Date End Date Rajani Knutson MD [address] [facility], [address] [place] [id number] PCP - General 07/17/20 Lj August [employer] [address], [place] [id number] PCP - [place] [facility] PCP 01/19/24 Dry Roaster Relationship Specialty Start Date End Date Rajani Knutson MD [address] [facility], [place] [address] [place] [id number] PCP - General 07/17/20 Lj August, [employer] [address], [place] [id number] PCP - [place] [facility] PCP 01/19/24 Dry Roaster Relationship Specialty Start Date End Date Rajani Knutson MD [address] [facility] [place], Kevin [address] [place] [id number] PCP - General 07/17/20 Lj August, [employer] [address], [address] [address] PCP - [place] [facility] PCP 01/19/24 Scheduled Active and Recently Administ ered Medications (unrecognized section and content) Medication Order 12/12/2024 12/13/2024 12/14/2024 acetaminophen (Tylenol) tablet 650 mg (COMPLETED) 650 mg, oral, Once, On Fri12/14/24 at 0825, For 1 dose, If ordered PRN for pain, nurse is permitted to administer this medication for higher pain scores based on patient preference? Yes 0826 (Given - Provid er: Adele Parekh RN) FOR RECORDS PERTAINING TO PATIENTS WHO ARE OR HAVE BEEN ENROLLED IN A CHEMICAL DEPENDENCY/SUBSTANCEABUSE PROGRAM, SOME INFORMATION MAY BE OMITTED. This clinical summary was aggregated from multiple sources. Caution should be exercised in using it in the provision of clinical care. This summary normalizes information from multiple sources, and as a consequence, information in this document may materially change the coding, format and clinical context of patient data. In addition, data may be omitted in some cases. CLINICAL DECISIONS SHOULD BE BASED ON THE PRIMARY CLINICAL RECORDS. [facility]. provides no warranty or guarantee of the accuracy or completeness of information in this document.
--- NOTE | 2024-12-25 09:00 | MRI_ITS ---
PROCEDURE: LOWER EXT JOINT ONLY W/WO CONT 12/25/2024 REASON FOR EXAM: UNSPECIFIED INJURY OF LEFT LOWER LEG TECHNIQUE: MRI of the left knee without intravenous gadolinium-based contrast. Multiplanar and multisequence images were obtained. CONTRAST: None. COMPARISON: None. FINDINGS: Mild tricompartmental changes of degenerative joint disease. Complex tear of the anterior horn and the body of the lateral meniscus reaching the femoral and tibial articular surface contours. Associated multi septated meniscal cyst measuring 2.3 x 1.8 cm arising from the tear in the lateral meniscus. Soft tissue edema and fat stranding is noted surrounding the meniscal cyst, probably secondary to recent rupture of the cyst. The medial meniscus is mildly degenerated. 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 Mild suprapatellar knee joint effusion. Periarticular soft tissue edema and swelling. Mild degenerative reactive subarticular bone marrow edema of the lateral tibial plateau with associated degenerative fibrocystic changes. Prepatellar/infrapatellar bursitis. Periarticular soft tissue edema and swelling. The remaining visualized osseous elements are intact with no evidence of fracture or dislocation. The anterior and posterior cruciate ligaments are intact and demonstrate no signal abnormality. The medial and lateral menisci are intact. The medial and lateral collateral ligaments and ligamentous complex are intact. The patellar retinaculum and quadriceps tendon complex and the patellar tendon are intact with no evidence of signal abnormality. There is no evidence of Angel's cyst. The remaining osseous structures demonstrate normal marrow signal characteristics. MRI/Lower Ext Joint Only W/WO Cont IMPRESSION: Mild tricompartmental changes of degenerative joint disease. Complex tear of the anterior horn and the body of the lateral meniscus reaching the femoral and tibial articular surface contours. Associated multi septated meniscal cyst measuring 2.3 x 1.8 cm arisi ng from the tear in the lateral meniscus. Soft tissue edema and fat stranding is noted surrounding the meniscal cyst, probably secondary to recent rupture of the cyst. The medial meniscus is mildly degenerated. 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 Mild suprapatellar knee joint effusion. Periarticular soft tissue edema and swelling. Mild degenerative reactive subarticular bone marrow edema of the lateral tibial plateau with associated degenerative fibrocystic changes. Prepatellar/infrapatellar bursitis. Periarticular soft tissue edema and swelling. [facility]
== END | disposition home or self-care (01) ==
LOC: MRI 08:21
PROVIDERS: PCP Family Medicine; Referring Provider Nurse Practitioner Occupational Health; Visit Provider Nurse Practitioner Occupational Health
DX: S89.92XA Unspecified injury of left lower leg, initial encounter (principal)
CPT/HCPCS: 73723

== ENCOUNTER → 2025-06-09 | Outpatient (CLI) | payer OTHER, BC, SELFPAY ==
--- NOTE | 2025-06-09 08:26 | VDLE_ITS ---
Reason For Study Reason For Study: Pain RIGHT LEFT CFV is compressible, spontaneous, phasic, competent GSV is normal. and demonstrates normal augmentation. CFV is compressible, spontaneous, phasic, competent, Procedure and demonstrates normal augmentation. This is a venous duplex using B-mode, color flow and FV is compressible, spontaneous, phasic, competent and spectral Doppler. demonstrates normal augmentation. Exam performed in department. POP V is compressible, spontaneous, phasic, competent and demonstrates normal augmentation. T/P Trunk is compressible. Acute deep vein thrombosis is noted in the Gastrocnemius V. It is dilated and NONCOMPRESSIBLE. PTV is compressible. LT PerV is compressible. VL/Venous Duplex US, Unilateral Interpretation Summary Acute deep vein thrombosis is noted in the left gastrocnemius vein. Ordering Physician: Jazmine Moore Referring Physician: Chapo Knutson MD Performed By: Libby Gill RVT
== END | disposition home or self-care (01) ==
PROVIDERS: PCP Family Medicine; Referring Provider Physician Assistant; Visit Provider Physician Assistant
DX: I82.462 Acute embolism and thrombosis of left calf muscular vein (principal)
CPT/HCPCS: 93971